=== PATIENT | female | born 1975 | race Caucasian/White ===

== ENCOUNTER 2023-05-02 18:58 | Outpatient (OUT) | payer OTHER, SELFPAY ==
--- NOTE | 2023-05-02 18:59 | US_ITS ---
The [address] [address] Patient Name: BLUE SAN MRN: [id number] date: 1975 Sex: F Assigned Patient Location: US Current Patient Location: US Accession/Order Number: [id number] Exam Date: 05/02/2023 19:00 Report Date: 05/02/2023 19:56 At the request of: SILVIO MILAN Procedure: US pelvis w/ transvaginal EXAM: Pelvic ultrasound HISTORY: . N83.201 RIGHT OVARIAN CYST; N83.202 LEFT OVARIAN CYST . COMPARISON: 01/19/2023 TECHNIQUE: Transabdominal and transvaginal scanning was performed FINDINGS: Scanning of the pelvis demonstrates the uterus to measure 8.8 x 4.9 x 4.2 cm. Endometrial complex measures 7 mm. Left ovary measures 3.5 x 1.6 x 3.1 cm. Color-flow is noted. Follicles are noted. Right ovary measures 5.9 x 4.2 x 3.2 cm. There is a 4.3 x 2.6 cm cyst within the right ovary. Within the endocervical canal there is a thin hypoechoic stripe measuring 1 mm consistent with fluid and/or blood. No fluid is noted in the cul-de-sac. IMPRESSION: 1. Normal-appearing uterus and endometrial complex. 2. Normal-appearing left ovary. 3. 4.3 x 2.6 cm cyst in the right ovary. Electronically authenticated by: OTF SINGER Date: 05/02/2023 19:56
== END 2023-05-02 18:59 ==
LOC: US 18:58
PROVIDERS: PCP Family Medicine; Visit Provider Obstetrics & Gynecology
DX: N83.201 Unspecified ovarian cyst, right side (principal); N83.202 Unspecified ovarian cyst, left side
CPT/HCPCS: 76830; 76856

== ENCOUNTER 2023-09-02 09:00 | Outpatient (OUT) | payer OTHER, SELFPAY ==
--- NOTE | 2023-09-02 09:05 | US_ITS ---
The [address] [address] Patient Name: BLUE SAN MRN: [id number] date: 1975 Sex: F Assigned Patient Location: US Current Patient Location: US Accession/Order Number: [id number] Exam Date: 09/02/2023 09:06 Report Date: 09/02/2023 12:04 At the request of: SILVIO MILAN Procedure: US pelvis w/ transvaginal EXAMINATION: US pelvis w/ transvaginal HISTORY: Left Ovarian Cyst N83.202 COMPARISON: 05/02/2023 FINDINGS: The uterus is normal in size measuring 9.9 x 3.8 x 4.9 cm, anteverted. Heterogeneous area of hypoechogenicity identified the anterior myometrium measuring 2.7 x 2.2 x 2.0 cm. A fibroid is favored. The endometrium is poorly visualized grossly measuring 5 mm. The right ovary measures 6.8 x 3.8 x 3.9 cm. 3.8 cm area of anechoic echogenicity likely a simple cyst. Normal color and Doppler flow in the ovary. The left ovary measures 5.5 x 4.6 x 5.6 cm. Normal color and Doppler flow. Complex cystic structure without vascularity measuring 4.3 x 3.9 x 3.6 cm. No free fluid US/US pelvis w/ transvaginal IMPRESSION: Bilateral ovarian cysts simple in the right, complex on the left Electronically authenticated by: OTF KUMAR Date: 09/02/2023 12:04
== END 2023-09-02 09:01 | disposition home or self-care (01) ==
LOC: US 09:00
PROVIDERS: PCP Family Medicine; Visit Provider Obstetrics & Gynecology
DX: N83.201 Unspecified ovarian cyst, right side (principal); N83.202 Unspecified ovarian cyst, left side; N83.291 Other ovarian cyst, right side; N83.292 Other ovarian cyst, left side
CPT/HCPCS: 76830; 76856

== ENCOUNTER 2024-03-08 09:04 | Outpatient (OUT) | payer OTHER, SELFPAY ==
--- NOTE | 2024-03-08 09:07 | US_ITS ---
The [address] [address] Patient Name: BLUE SAN MRN: [id number] date: 1975 Sex: F Assigned Patient Location: US Current Patient Location: US Accession/Order Number: [id number] Exam Date: 03/08/2024 09:08 Report Date: 03/08/2024 10:18 At the request of: NON-STAFF PHYSICIAN Procedure: US pelvis w/ transvaginal EXAMINATION: US pelvis w/ transvaginal HISTORY: Ovarian Cyst Bilateral , follow-up COMPARISON: Ultrasound pelvis 09/02/2023, 05/02/2023 TECHNIQUE: Transabdominal and/or transvaginal sonographic examination was performed as indicated by examination type. FINDINGS: UTERUS: Normal size, contour, and echotexture. Uterus size: 8.2 x 3.8 x 5.4 cm ENDOMETRIUM: Normal homogeneous appearance. Endometrial thickness: 8 mm RIGHT OVARY: Contains a 2.4 cm slightly irregular, anechoic benign-appearing cyst. Duplex Doppler demonstrates normal waveform and flow; resistive index 0.7. Ovary size: 4.9 x 2.6 x 2.6 cm LEFT OVARY: Contains a 2.4 cm anechoic benign-appearing cyst. Duplex Doppler demonstrates normal waveform and flow; resistive index 0.7. Ovary size: 3.4 x 2.3 x 3.8 cm CUL-DE-SAC: Unremarkable. No significant free fluid. BLADDER: Unremarkable. OTHER: None. US/US pelvis w/ transvaginal IMPRESSION: 1. Benign-appearing cyst within right ovary, likely collapsing follicle/cyst. 2. Benign-appearing simple cyst within left ovary; no suspicious findings. This likely represents represents a new cyst compared to 09/02/2023 with resolution of previously seen complex cyst. Electronically authenticated by: TEODORA STAHL Date: 03/08/2024 10:18
== END 2024-03-08 09:05 | disposition home or self-care (01) ==
LOC: US 09:04
PROVIDERS: PCP Family Medicine
DX: N83.201 Unspecified ovarian cyst, right side (principal); N83.202 Unspecified ovarian cyst, left side
CPT/HCPCS: 76830; 76856

== ENCOUNTER 2024-07-22 14:48 | Emergency (ER) | payer OTHER, SELFPAY ==
[2024-07-22 14:52] VITALS: BP 188/107; PULSE 129; TEMP 36.6; O2SAT 99; BMI 24.3
--- OUTSIDE RECORDS SUMMARY | 2024-07-22 14:54 | XMS_ITS | CCD ---
Author Organization [facility] Care Team Providers Care Facilities Maintenance Assistant Name Role Phone PHYSICIAN, DEFAULT Unavailable Unavailable PHYSICIAN, DEFAULT Unavailable Unavailable PHYSICIAN, DEFAULT Unavailable Unavailable PHYSICIAN, DEFAULT Unavailable Unavailable Otf Metzger Unavailable Otf Metzger Primary Care Physician KAYLI ., DR ANGUIANO Admitting Unavailable KAYLI ., DR ANGUIANO Attending Unavailable [place], DR OTF Haro Consulting Unavailable KAYLI ., DR ANGUIANO Consulting Unavailable KAYLI ., DR ANGUIANO Admitting Unavailable KAYLI ., DR ANGUIANO Attending Unavailable KAYLI ., DR ANGUIANO Consulting Unavailable KAYLI ., DR ANGUIANO Admitting Unavailable KAYLI ., DR ANGUIANO Attending Unavailable KAYLI ., DR ANGUIANO Consulting Unavailable JL II, ADRIEL Consulting Unavailable FILLOC, CHAVA Consulting Unavailable KAYLI ., DR ANGUIANO Admitting Unavailable KAYLI ., DR ANGUIANO Attending Unavailable KAYLI ., DR ANGUIANO Consulting Unavailable KAYLI ., DR ANGUIANO Admitting Unavailable KAYLI ., DR ANGUIANO Attending Unavailable KAYLI ., DR ANGUIANO Admitting Unavailable KAYLI ., DR ANGUIANO Attending Unavailable KAYLI ., DR ANGUIANO Consulting Unavailable KAYLI ., DR ANGUIANO Admitting Unavailable KAYLI ., DR ANGUIANO Attending Unavailable KAYLI ., DR ANGUIANO Consulting Unavailable KAYLI, SILVIO Attending Unavailable Otf Metzger DO Primary Care Provider [phone] Vanna Johnson Admitting Unavaila ble Vanna Johnson Attending Unavaila ble Vanna Johnson Referring Unavaila ble Otf Metzger Admitting Unavailable Otf Metzger Attending Unavailable Otf Metzger Referring Unavailable REFERRAL, SELF Admitting Unavailable REFERRAL, SELF Attending Unavailable REFERRAL, SELF Referring Unavailable Otf Metzger Consulting Unavailable Otf Metzger Consulting Unavailable Tian Saxena Attending Unavailable Otf Metzger Referring Unavailable Renata Strong Attending Unavailable YOHAN WILSON Attending Unavailable OTF METZGER Referring Unavailable OTF METZGER Primary Care Unavailable Medications Current Medications Medication Drug Class(es) Dates Sig (Normalized) Sig (Original) amoxicillin 875 mg / clavulanate 125 mg oral tablet (1 source) Penicillin-class Antibacterial Start: 03-05-2024 take 1 tablet by mouth twice daily at mealtime Amoxicillin-Pot Clavulanate Active 1 TAB PO Twice daily 02 09March 05, 2024 12:00am with food diazePAM 5 mg oral tablet (13 sources) Benzodiazepine Start: 09-15-2016 diazepam 5 mg Tab 30 tab(s), 0 Refill(s), Refills(s) 0 Start Date: 09/09/23 Status: Ordered Ethinyl Estradiol / Levonorgestrel (2 sources) Progestin, Estrogen, Progestin-containing Intrauterine Device Start: 01-17-2024 take 1 tablet by mouth once daily in the morning L norgest/e.estrad ioL-e.estrad (AMETHIA) 0.15 mg-30 mcg (84)/10 mcg (7) tablets,dose pack,3 month Indications: Cysts of both ovaries TAKE 1 TABLET BY MOUTH EVERY DAY IN THE MORNING 91 tablet 2 01/17/2024 Active Start: 10-26-2023 End: 01-17-2024 take 1 tablet by mouth every month in the morning L norgest/e.estradioL-e.estrad (AMETHIA) 0.15 mg-30 mcg (84)/10 mcg (7) tablets,dose pack,3 month Indications: Cysts of both ovaries Take 1 tablet by mouth in the morning. 91 each 0 10/26/2023 01/17/2024 Discontinued ferrous sulfate 325 mg oral tablet (17 sources) Start: 03-05-2024 Ferrous Sulfat e Active 325 MG PO Every 48 hours March 05, 2024 3:38pm FreeTextSi tablet Orally every other day; Note: Source Status: Refill; Refills: 3; Provider: Jamilah Espinosa Start: 03-01-2024 End: 03-05-2024 Ferrous Sulfate Discontinued 1 TAB PO Every 48 hours March 01, 2024 12:00am March 05, 2024 3:39pm FreeTextSi tablet Orally every other day; Note: Source Status: Refill; Refills: 3; Provider: Jamilah Espinosa Start: 09-09-2023 ferrous sulfat e Oral, 0 Refill(s), Refills(s) 0, Prophylaxis Start Date: 09/09/23 Status: Ordered Start: 09-09-2023 ferrous sulfat e Oral, 0 Refill(s), Refills(s) 0 Start Date: 09/09/23 Status: Ordered ferrous sulfate 325 (65 FE) mg EC tablet Take 1 tablet (325 mg total) by mouth. 0 Active take 1 tablet by diann th every other day Ferrous Sulfate 325 (65 Fe) MG 1 tablet Orally every other day for 90 days Active take 1 tablet by diann th every other day Ferrous Sulfate 325 (65 Fe) MG 1 tablet Orally every other day Active take 1 tablet by diann th once daily Ferrous Sulfate 325 (65 Fe) MG TAKE 1 TABLET BY MOUTH EVERY DAY Active take 1 tablet by diann th once daily Ferrous Sulfate 325 (65 Fe) MG TAKE 1 TABLET BY MOUTH EVERY DAY Active metoprolol tartrate 25 mg oral tablet (6 sources) beta-Adrenergic Antonio Start: 11-24-2019 take 0.5 tablet by mouth twice daily Lopressor 25 mg oral tablet TAKE 1/2 TABLET BY MOUTH TWICE A DAY, High blood pressure Start Date: 11/24/19 Status: Ordered ondansetron 4 mg oral tablet (16 sources) Serotonin-3 Receptor Antagonist Start: 03-05-2024 Ondansetron Hcl Active 4 MG PO March 05, 2024 3:38pm FreeTextSi Tablet Orally q8-12 hrs prn nausea; Note: Source Status: Continue; Provider: Jamilah Espinosa Start: 03-01-2024 End: 03-05-2024 Ondansetron Hcl Discontinued MG PO March 01, 2024 12:00am March 05, 2024 3:39pm FreeTextSi Tablet Orally q8-12 hrs prn nausea; Note: Source Status: Continue; Provider: Jamilah Espinosa Start: 09-09-2023 Zofran 4 mg Ta b 0 Refill(s), Refills(s) 0, Nausea Start Date: 09/09/23 Status: Ordered Start: 12-20-2016 Zofran 4 mg 1 Tablet Orally q8-12 hrs prn nausea Dec, Active Start: 12-20-2016 Zofran 4 mg 1 Tablet Orally q8-12 hrs prn nausea Dec, Active valACYclovir 1000 mg oral tablet (12 sources) Herpesvirus Nucleoside Analog DNA Polymerase Inhibitor, Herpes Simplex Virus Nucleoside Analog DNA Polymerase Inhibitor, Herpes Zoster Virus Nucleoside Analog DNA Polymerase Inhibitor Start: 03-01-2024 End: 03-05-2024 take 1 tablet by mouth three times daily Valacyclovir (Valtrex) 1 gram tablet Active 1000 MG PO March 05, 2024 3:39pm FreeTextSi tablet Orally tid x7 days; Note: Source Status: Taking; Refills: 2; Provider: Jamilah Espinosa Start: 11-30-2017 Valtrex 1 GM 1 tablet Orally tid x7 days for 7 days Nov, Active Start: 11-30-2017 Valtrex 1 GM 1 tablet Orally tid x7 days for 7 days Nov, Active Vitamin C 500 MG (1 source) Start: 08-22-2023 take 1 tablet by diann th once daily Vitamin C 500 MG 1 tablet Orally Once a day Aug, Active Completed/Discontinued Medications Medication Drug Class(es) Dates Sig (Normalized) Sig (Original) ascorbic acid 500 mg chewable tablet (3 sources) Vitamin C Start: 03-01-2024 End: 03-05-2024 take 1 tablet by mouth once daily Ascorbic Acid (Vitamin C) Discontinued 500 MG PO Daily March 05, 2024 3:38pm March 05, 2024 3:50pm FreeTextSi tablet Orally Once a day; Note: Source Status: Start; Provider: Jamilah Espinosa Start: 08-22-2023 take 1 tablet by diann th every twenty-four hours Vitamin C 500 MG 1 tablet Orally Once a day Aug, Active cefTRIAXone (9 sources) Cephalosporin Antibacterial Start: 06-22-2018 Rocephin 500 mg Jun, 1 grm cyclobenzaprine hydrochloride 10 mg oral tablet (17 sources) Muscle Relaxant Start: 03-01-2024 End: 03-05-2024 take 1 tablet by mouth every eight hours as needed Cyclobenzaprine Discontinued 10 MG PO March 05, 2024 3:38pm March 05, 2024 3:40pm FreeTextSi tablet Orally q8 hrs prn; Note: Source Status: Continue; Provider: Jamilah Espinosa Start: 12-08-2015 take 1 tablet by diann th every eight hours as needed Cyclobenzaprine HCl 10 mg 1 tablet Orally q8 hrs prn Nov, Active Start: 12-07-2015 cyclobenzaprin e Oral, 0 Refill(s), Refills(s) 0, Muscle pain Start Date: 12/07/15 Status: Ordered Start: 12-07-2015 cyclobenzaprin e Oral, 0 Refill(s), Refills(s) 0 Start Date: 12/07/15 Status: Ordered Ketorolac (9 sources) Nonsteroidal Anti-inflammatory Drug, Cyclooxygenase Inhibitor Start: 02-13-2013 Toradol p er 15 mg Feb, 60 mg Problems Active Problems Problem Classification Problem Date Documented Da te Episodic/Chronic Anxiety disorders (6 sources) Anxiety 11-10-2015 Chronic Biliary tract disease (6 sources) Gallbladder pain 11-10-2015 Episodic Cardiac dysrhythmias (6 sources) Atrial tachycardia 08-27-2019 Chronic Deficiency and other anemia (11 sources) Iron deficiency anemia; Translations: [Iron deficiency anemia, unspecified] 03-05-2024 Episodic Deficiency and other anemia (7 sources) Iron deficiency anemia, unspecified; Translations: [Iron deficiency anemia, unspecified] Onset: 09-25-2021 Resolved: 07-26-2022 Episodic Diabetes mellitus without complication (4 sources) Hyperglycemia, unspecified; Translations: [Hyperglycemia] Onset: 09-25-2021 Resolved: 09-25-2021 Episodic Headache; including migraine (20 sources) Migraine; Translations: [Migraine, unspecified, not intractable, without status migrainosus] Onset: 09-25-2021 Resolved: 07-26-2022 Chronic Menstrual disorders (19 sources) Menorrhagia; Translations: [Excessive and frequent menstruation with regular cycle] Onset: 01-19-2023 Chronic Nausea and vomiting (10 sources) Nausea; Translations: [Nausea] Episodic Other female genital disorders (1 source) Abnormal uterine and vaginal bleeding, unspecified; Translations: [ABNORMAL UTERINE VAGINAL BLEED UNS] Onset: 03-09-2023 Chronic Other gastrointestinal disorders (11 sources) Irritable bowel syndrome; Translations: [Irritable bowel syndrome without diarrhea] 03-05-2024 Chronic Other gastrointestinal disorders (7 sources) Irritable bowel syndrome without diarrhea; Translations: [Irritable bowel syndrome] Onset: 09-25-2021 Resolved: 07-26-2022 Chronic Other gastrointestinal disorders (6 sources) Perforation of intestine 11-10-2015 Episodic Other gastrointestinal disorders (5 sources) Urgent desire for stool; Translations: [Fecal urgency] Onset: 09-13-2023 Episodic Other gastrointestinal disorders (5 sources) Diarrhea; Translations: [Diarrhea, unspecified] Onset: 09-13-2023 Episodic Other nutritional; endocrine; and metabolic disorders (1 source) Abnormal weight loss Episodic Other screening for suspected conditions (not mental disorders or infectious disease) (9 sources) Encounter for screening mammogram for malignant neoplasm of breast; Translations: [Encounter for screening for malignant neoplasm of cervix] Onset: 02-08-2023 Episodic Poisoning by nonmedicinal substances (2 sources) Spider bite wound; Translations: [Toxic effect of unspecified spider venom, accidental (unintentional), initial encounter] 03-05-2024 Episodic Residual codes; unclassified (1 source) Acquired absence of other specified parts of digestive tract; Translations: [ACQ ABSENCE OTH PART DIGESTV TRACT] Onset: 03-09-2023 Episodic Thyroid disorders (20 sources) Hyperthyroidism; Translations: [Thyrotoxicosis, unspecified without thyrotoxic crisis or storm] Onset: 09-25-2021 Resolved: 09-25-2021 Chronic Unclassified (4 sources) Patient encounter status 09-13-2023 Unclassified (1 source) Transformed migraine; Translations: [Chronic migraine] 03-05-2024 Past or Other Problems Problem Classification Problem Date Documented Da te Episodic/Chronic Other aftercare (1 source) Other long term care administrator (current) drug therapy Onset: 07-26-2022 Resolved: 07-26-2022 Episodic Ovarian cyst (11 sources) Unspecified ovarian cyst, right side; Translations: [Unspecified ovarian cyst, left side] Onset: 01-22-2023 Episodic Unclassified (6 sources) Entire gallbladder (body structure) 11-10-2015 Results Test Name Value Interpretation Reference Range Facil ity Consent for Treatmenton 02-13 Consent for Treatment [id number]#[id number] Normal [facility] US Breast Unilateral Rt Comp leteon 03-08-2024 US Breast Unilateral Rt Complete Exam Date/Time: 03/08/2024 13:05 EDT Reason for Exam: R92.8 Report IMPRESSION: BIRADS 2 BENIGN FINDINGS, NORMAL INTERVAL FOLLOW-UP. EXAMINATION: US Breast Unilateral Rt Complete CLINICAL HISTORY: Abnormal mammogram. COMPARISON: Mammogram 02/24/2024. RESULT: An ultrasound was obtained at all clock face positions and in the central/ retroareolar region of the right breast. Scattered areas of fibroglandular density. Appearing to correlate with the recent screening mammogram, within the right breast at the 2:00 position there is a benign anechoic cyst measuring 0.5 x 0.4 x 0.3 cm, without internal vascularity. Otherwise the complete right breast ultrasound is unremarkable. Dense Breast: No Follow-up: 12 MONTH RECALL. Board Certified Radiologists. Accredited by the ACR and FDA. MAMMOGRAPHY IS VERY IMPORTANT TO YOUR HEALTH. THE [employer] GUIDELINES RECOMMEND THAT WOMEN 40 YEARS OF AGE AND OLDER SHOULD HAVE A MAMMOGRAM EVERY YEAR. A REMINDER LETTER WILL BE SENT AT THE APPROPRIATE TIME. THIS FACILITY UTILIZES A REMINDER SYSTEM TO ENSURE ALL PATIENTS RECEIVE REMINDER NOTIFICATIONS AT THE APPROPRIATE TIME BASED ON THE RECOMMENDATIONS OF THIS EXAM. THIS INCLUDES REMINDERS FOR ROUTINE SCREENING MAMMOGRAMS, DIAGNOSTIC MAMMOGRAMS IN WHICH THE PATIENT IS ASKED TO RETURN FOR ADDITIONAL VIEWS, OR OTHER BREAST IMAGING INTERVENTIONS WHEN APPROPRIATE. THE PATIENT WILL BE PLACED IN THE APPROPRIATE REMINDER SYSTEM INCLUDING A REMINDER AT THE APPROPRIATE TIME FOR ANY PENDING ADDITIONAL VIEWS. Report Ordering Provider: Otf Metzger FINAL REPORT Dictated: 03/08/2024 1:10 pm Duong Sanches MD. Signed (Electronic Signature): 03/08/2024 1:10 pm Signed by: Duong Sanches MD Transcribed by: JANIS Technologist: LANDEN Assessment: BI-RADS Category 2-Benign finding Recommendation: Normal interval follow-up Normal [facility] Physician Orderon 03-02-2024 Physician Order [id number] Normal [facility] Laboratory - Hematology and Cell countson 02-27-2024 HbA1c (Bld) [Mass fraction] 5.5 % [facility] MA Mamm Screen w/CAD if perf and 3D Bilon 02-27-2024 MA Mamm Screen w/CAD if perf and 3D Vincent Exam Date/Time: 02/24/2024 09:23 EDT Reason for Exam: SCREENING Report IMPRESSION: BIRADS 0 - INCOMPLETE, NEED ADDITIONAL IMAGING EVALUATION Follow-up: RECALL NOW Density: Scattered tissue. Vascular calcifications: Absent. EXAM: MA Mamm Screen w/CAD if perf and 3D Vincent DATE: 02/24/2024 9:12 AM CLINICAL HISTORY: SCREENING. COMPARISONS: 11/12/2022, 10/02/2021, 11/05/2019, and 10/31/2018. TECHNIQUE: Routine full-field digital mammograms and 3D breast tomosynthesis of both breasts were obtained. FINDINGS: An approximately 4 mm nodular density has developed within the medial right breast at a middle to posterior depth. Further evaluation with ultrasound is suggested. No other significant changes are identified from the prior studies with postoperative changes from previous reduction mammoplasty and small lucent-centered calcifications, given differences in technique and positioning. Dense Breast: No. CAD analysis was performed and used in the interpretation. Board Certified Radiologists. Accredited by the ACR and FDA. MAMMOGRAPHY IS VERY IMPORTANT TO YOUR HEALTH. THE CURRENT [place] [employer] GUIDELINES RECOMMENDS ANNUAL MAMMOGRAPHY BEGINNING AT AGE 40. THIS FACILITY UTILIZES A REMINDER SYSTEM TO ENSURE ALL PATIENTS RECEIVE REMINDER NOTIFICATIONS AT THE APPROPRIATE TIME BASED ON THE RECOMMENDATIONS OF THIS EXAM. Report Ordering Provider: REFERRAL, SELF FINAL REPORT Dictated: 02/27/2024 3:25 pm Jeff Heard MD Signed (Electronic Signature): 02/27/2024 3:25 pm Signed by: Jeff Heard MD Transcribed by: JANIS Technologist: FARHAT Assessment: BI-RADS Category 0-Incomplete: Need additional imaging evaluation Recommendation: Additional projections Normal [facility] Consent for Treatmenton 02-12 Consent for Treatment [id number] Normal [facility] Postoperative Documentson Postoperative Documents [id number] Normal [facility] IntraOperative Documentson 1 12-25-2022 IntraOperative Documents [id number] Normal [facility] Result Letter Officeon 10-24 Result Letter Office October 24, 2023 BLUE SAN [address] [place] [address] [place] [address] : 1975 Below is a summary of the results of your recent colonoscopy. Your results have been sent to your primary care provider along with recommendations on when the procedure should be repeated. COLONOSCOPY Type of polyp no polyps identified Based on your results we are recommending you repeat the procedure in 10 years Please contact the office with any further questions or concerns or if you wish to make an appointment. [facility] [phone] Normal [facility] Progress Note-Physicianon Progress Note-Physician Patient: BLUE SAN Age: 47 years Sex: Female : 1975 Associated Diagnoses: None Author: Delroy Dee Jr, DO Preoperative Information Anesthesia Preop Info: Time patient last ate or drank 10/19/2023 00:00:00. Anesthesia history: Patient history: None. Family history+: None. Informed consent: Signed by patient. Re-evaluation prior to induction: Initial evaluation reviewed: No significant change. Review of Systems Eye: Negative except as documented in history of present illness. Ear/Nose/Mouth/Throat: Negative except as documented in history of present illness. Respiratory: Negative except as documented in history of present illness. Cardiovascular: Negative except as documented in history of present illness. Musculoskeletal: Negative except as documented in history of present illness. Neurologic: Negative except as documented in history of present illness. Health Status Allergies: Allergic Reactions (Selected) No Known Allergies Problem list: All Problems Fecal urgency / SNOMED CT 799775101 / Confirmed Screen for colon cancer / SNOMED CT 926796822 / Confirmed Gallbladder attack / SNOMED CT 565600747 / Confirmed Diarrhea / SNOMED CT 946424748 / Confirmed Atrial tachycardia / SNOMED CT 853742670 / Confirmed Anxiety / SNOMED CT 15859200 / Confirmed Resolved: Perforated bowel / SNOMED CT [id number] 03X24812MB Resolved: Gallbladder / SNOMED CT 619311799 Canceled: Upper abdominal pain / SNOMED CT 853091915 Canceled: Abdominal cramping / SNOMED CT 363619017 Histories Procedure history: Breast reduction (913587344). Gallbladder (24421474). Bowel dysfunction (647809409). Comments: 08/27/2019 9:09 EDT - Esperanza Goodwin MA recestion Colonoscopy (463945984). Comments: 09/13/2023 8:36 EDT - Portia Mar 20 years ago Social History Social & Psychosocial Habits Tobacco 09/13/2023 Risk Assessment: Denies Tobacco Use 09/13/2023 Tobacco Use: Never (less than 100 in l Smokeless tobacco use: Never . Physical Examination Airway: Mallampati classification: II (soft palate, fauces, uvula visible). Respiratory: adequate air exchange. Cardiovascular: Regular rhythm. Plan [place] [employer] (ASA) physical status classification: Class II. Anesthetic Preoperative Plan: Anesthesia General. [facility] Comment on above: Result Comment: Elec tronically Signed By: Delroy Dee Jr, DO\.br\Date and Time Signed: 10/21/23 07:36 EST Progress Note-Physician Patient: BLUE SAN Age: 47 years Sex: Female : 1975 Associated Diagnoses: None Author: Delroy Dee Jr, DO Postoperative Information Postoperative disposition: Postoperative disposition: To PACU. Optimetrix number: Optimetrix number [id number]. Anesthetic utilized: General. Health Status Allergies: Allergic Reactions (Selected) No Known Allergies Physical Examination Vital Signs 10/19/2023 12:10 EST Heart Rate Monitored 80 bpm Respiratory Rate Monitored 10 br/min 10/19/2023 12:05 EST Heart Rate Monitored 89 bpm Respiratory Rate Monitored 17 br/min Systolic Blood Pressure 120 mmHg Diastolic Blood Pressure 75 mmHg Mean Arterial Pressure, Cuff 90 mmHg SpO2 100 % 10/19/2023 12:00 EST Heart Rate Monitored 81 bpm Respiratory Rate Monitored 20 br/min Systolic Blood Pressure 108 mmHg Diastolic Blood Pressure 79 mmHg Mean Arterial Pressure, Cuff 89 mmHg SpO2 100 % 10/19/2023 11:55 EST Heart Rate Monitored 84 bpm Respiratory Rate Monitored 18 br/min Systolic Blood Pressure 107 mmHg Diastolic Blood Pressure 82 mmHg Mean Arterial Pressure, Cuff 90 mmHg SpO2 100 % 10/19/2023 11:50 EST Heart Rate Monitored 88 bpm Respiratory Rate Monitored 20 br/min Systolic Blood Pressure 106 mmHg Diastolic Blood Pressure 77 mmHg SpO2 100 % 10/19/2023 11:47 EST Temperature Temporal Artery 36.3 DegC Heart Rate Monitored 90 bpm Respiratory Rate Monitored 22 br/min Systolic Blood Pressure 112 mmHg Diastolic Blood Pressure 74 mmHg Blood Pressure Location Left arm Mean Arterial Pressure, Cuff 87 mmHg SpO2 100 % Pain Assessment: Controlled. General: Awake, Alert, Appropriate. Respiratory: Adequate air exchange. Cardiovascular: Stable, Normal peripheral perfusion. Neurological: Normal sensory function, Normal motor function. Assessment Anesthetic outcome No anesthetic complications noted. Adequate pain relief. able to void without difficulty, able to ambulate with assist, tolerating PO intake, no N/V. Review / Management Condition: Stable. Plan Transfer/Discharge: Transfer/Discharge Discharge when meets criteria ( To home ). [facility] Comment on above: Result Comment: Elec tronically Signed By: Delroy Dee Jr, DO\.br\Date and Time Signed: 10/21/23 07:35 EST Consenton 10-20-2023 Consent [id number] [facility] Discharge Instructionson Discharge Instructions [id number] [facility] Main OR Intraoperative Recor don 10-20-2023 Main OR Intraoperative Record IntraOp Document Type FT Summary Primary Physician: Vanna Johnson MD Finalized Date/Time: 10/20/23 15:32:49 Pt. Name: JASWINDERVEDA GravesGaudencio SmallwoodB./Sex: 1975 Female Med Rec #: [id number] Physician: Vanna Johnson MD Financial #: [id number] Pt. Type: O Room/Bed: / Admit/Disch: 10/19/23 09:56:56 - 10/19/23 23:59:59 Institution: Case Times FT Entry 1 Patient Times In Room 10/19/23 11:19:00 Out Room 10/19/23 11:46:00 Procedure Times Start 10/19/23 11:23:00 Stop 10/19/23 11:43:00 Anesthesia Times Start 10/19/23 11:19:00 Stop 10/19/23 11:46:00 Time at [facility] 10/19/23 11:30:00 Last Modified By: Clara VALLE, Heike 10/19/23 11:46:44 General Comments: 10/20/23 chart opened for charge review per Usman Yadav RN. [place] Case Attendance FT Entry 1 Entry 2 Entry 3 Case Attendee Amita CAA, Jim Chester, Zoey Strickland AWARD CLERK, Florencia Pardo Role Performed Anesthesiologist Scrub - Primary Staff - Other Policy Intern Time In 10/19/23 11:19:00 10/19/23 11:19:00 10/19/23 11:19:00 Time Out 10/19/23 11:46:00 10/19/23 11:46:00 10/19/23 11:46:00 Procedure COLONOSCOPY(.) COLONOSCOPY(.) COLONOSCOPY(.) Comments supervising help in room Last Modified By: Clara RN, Heike Elizabeth RN, Heike Elizabeth RN, Heike 10/19/23 11:46:45 10/19/23 11:46:45 10/19/23 11:46:45 Entry 4 Entry 5 Case Attendee Elizabeth CHUA, Vanna Elizabeth RN, Heike Friedman Role Performed Surgeon - Primary Security Lead - Primary Time In 10/19/23 11:19:00 10/19/23 11:19:00 Time Out 10/19/23 11:46:00 10/19/23 11:46:00 Procedure COLONOSCOPY(.) COLONOSCOPY(.) Comments Last Modified By: Clara RN, Heike Elizabeth RN, Heike 10/19/23 11:46:45 10/19/23 11:46:45 Perioperative Protocols FT Pre-Care Text: Implements protective measures prior to operative or invasive procedure, confirms identity before the operative or invasive procedure, verifies operative procedure, surgical site, and laterality Entry 1 Procedure(s) COLONOSCOPY(.) Patient Identity Birthday, ID Band Verified (select at Check, Patient least 2): Participation Consents / H and P Anesthesia Consent, Operative Site N/A Verified HandP, Surgery/Procedure Marking Verified Consent Surgical Site No Laterality Verified n/a Verified Procedure Verified Yes Correct Patient Yes Position Verified Availability Equipment, Medication Prep Dry n/a Verified (If Applicable) PreOp Antibiotic No Time Out Jim Spann, Given Participants Zoey Chester, Marco A AWARD CLERK, Florencia Pardo, Elizabeth CHUA, Vanna Friedman, Heike Elizabeth RN Time Out Complete 10/19/23 11:21:00 Outcomes Met? Yes Last Modified By: Heike Elizabeth RN 10/19/23 11:30:33 Post-Care Text: The patient is free from signs and symptoms of injury caused by extraneous objects Allergy Information FT Pre-Care Text: Verifies allergies Entry 1 Allergies Reviewed? Yes Allergies Reviewed Self/Patient With Outcomes Met? Yes Last Modified By: Heike Elizabeth RN 10/19/23 11:38:15 Post-Care Text: The patient received appropriate medication(s) safely administered during the perioperative period Surgical Procedures FT Entry 1 Procedure Description Procedure COLONOSCOPY Modifiers . Surgeon Description Colonoscopy Primary Procedure Yes Primary Surgeon Elizabeth CHUA, Vanna Friedman Start 10/19/23 11:23:00 Stop 10/19/23 11:43:00 Anesthesia Type General Surgical Service Gastroenterology Wound Class 2 - Clean-Contaminated Last Modified By: Heike Elizabeth RN 10/19/23 11:44:10 General Case Data FT Pre-Care Text: Classifies surgical wound, implements aseptic technique, initiates traffic control Entry 1 Case Information OR ENDO 1 FT Case Level Level 2 Wound Class 2 - Clean-Contaminated Specialty Gastroenterology ASA Class 2 Preop Diagnosis DIARRHEA, FECAL Postop Same As Preop No URGENCY, SCREEN FOR COLON CANCER Postop Diagnosis Internal hemorrhoids Outcomes Met? Yes Last Modified By: Heike Elizabeth RN 10/19/23 11:45:47 Post-Care Text: The patient is free from signs and symptoms of infection Skin Assessment (Pre Procedure) FT Pre-Care Text: Implements protective measures to prevent skin/ tissue injury due to thermal or mechanical sources Evaluates for signs and symptoms of physical injury to skin and tissue Entry 1 Skin Integrity Intact, [place], Warm, and Skin Abnormality No Dry Outcomes Met? Yes Last Modified By: Heike Elizabeth RN 10/19/23 11:38:38 Post-Care Text: The patient is free from signs and symptoms of injury caused by extraneous objects Patient Positioning FT Pre-Care Text: Identifies physical alterations that require additional precautions for procedure-specific positioning, verifies presence of prosthetics or corrective devices, positions the patient, evaluates the patient for signs and symptoms of injury as a result of positioning Entry 1 Procedure COLONOSCOPY(.) Body Position Lateral, (more content not included)... Normal [facility] Consent for Treatmenton Consent for Treatment [id number] Normal [facility] Discharge Instructionson Discharge Instructions BLUE SAN :1975 Visit Date:10/19/2023 Inpatient Discharge Instructions Your Care Team Admitting Physician - Vanna Johnson MD Referring Physician - Vanna Johnson MD Reason for Your Visit DIARRHEA, FECAL URGENCY, SCREEN FOR COLON CANCER Your Diagnosis Colon cancer screening This Is Your Medications List cyclobenzaprine diazepam (diazepam 5 mg Tab) ferrous sulfate metoprolol (Lopressor 25 mg oral tablet) ondansetron (Zofran 4 mg Tab) Procedure History Bowel dysfunction, Breast reduction, Colonoscopy, Gallbladder. Discharge Vitals Temperature (Temporal Artery) 36.3 ?C Heart Rate (Monitored) 88 Respiratory Rate 20 Blood Pressure 106/77 Height 170.1 cm Weight 72.1 kg BMI 24.92 What to do next Instructions From Your Doctor Event Name Event Result Pharmacy Information Other: [facility]- [place], [place] New Follow Up Appointments after Discharge Follow Up with Elizabeth CHUA, Vanna Friedman, [facility], [facility] When: Comments: Office Will Call Date and Time of Follow-up Appt. Where: [address] [place] [address], [address] [phone] [phone] Medications What When Instructions Next Dose Unchanged cyclobenzaprine Oral, 0 Refill(s) Unchanged diazepam (diazepam 5 mg Tab) 30 tab(s), 0 Refill(s) Unchanged ferrous sulfate Oral, 0 Refill(s) Unchanged metoprolol (Lopressor 25 mg oral tablet) TAKE 1/ 2 TABLET BY MOUTH TWICE A DAY Unchanged ondansetron (Zofran 4 mg Tab) 0 Refill(s) Test Results No qualifying data available. Allergies No Known Allergies Problems Ongoing - Any problem that you are currently receiving treatment for. Atrial tachycardia Diarrhea Fecal urgency Screen for colon cancer Historical - Any problem that you are no longer receiving treatment for. Gallbladder Perforated bowel Education Materials AvoidNonsteroidal Anti-Inflammatory Medications (NSAIDS) Non-steroidal anti-inflammatory drugs (NSAIDs) are a medication widely used to treat a wide range of conditions. Common acute (short-term) conditions that can be treated with NSAIDs include: ? headaches ? painful periods ? toothache ? soft tissue injuries such as sprains and strains ? reduce inflammation (redness and swelling) ? infections, such as the common cold or the flu (NSAIDs do not treat the underlying infections, but can help to relieve symptoms; especially fever) Common chronic (long-term) conditions that can be treated with NSAIDs include: ? most types of arthritis, including rheumatoid arthritis and osteoarthritis ? back pain ? neck pain Some NSAIDs are available [id number]-[id number], without the need for a prescription. However, because a medication is available over the counter it does not mean it is safe or suitable for everyone. Again, it is important to read the patient information leaflet that comes with your medication. NSAID drugs include: Brand: Generic: Bufferin; Dexter Aspirin; ASA Celebrex Celecoxib Zipsor; Cambia Diclofenac Motrin; Advil Ibuprofen Indosin Indometacin Actron; Orudis Ketoprofen Toradol Ketorolac Mobic Meloxicam Ponstel Mefenamic Acid Aleve; Naprosyn Naproxen Side effects: Most people take NSAIDs without having any side effects. Short term use is unlikely to cause significant problems, especially in younger patients. If side effects do occur they usually affect the stomach and can include: ? Indigestion ? Nausea ? Stomach pain ? Stomach ulcer ? Bleeding from the stomach and intestines Colonoscopy Care After Surgery Please read the instructions outlined below and refer to this sheet in the next few weeks. These discharge instructions provide you with general information on caring for yourself after you leave the hospital. Your doctor may also give you specific instructions. While your treatment has been planned according to the most current medical practices available, unavoidable complications occasionally occur. If you have any problems or questions after discharge, please call your doctor. ACTIVITY You may resume your regular activity, but move at a slower pace for the next 24 hours. Take frequent rest periods for the next 24 hours. Walking will help get rid of the air and reduce the bloated feeling in your abdomen (belly). No driving for 24 hours (because of the anesthesia (medicine) used during the test). You may shower. Do not sign any important legal documents or operate any machinery for 24 hours (because of the anesthesia used during the test). NUTRITION Drink plenty of fluids. You may resume your normal diet as instructed by your doctor. Begin with a light meal and progress to your normal diet. Heavy or fried foods are harder to digest and may make you feel nauseated (sick to your stomach). Avoid alcoholic beverages for 24 hours or as instructed. MEDICATION (more content not included)... Normal [facility] Comment on above: Result Comment: Elec tronically Signed By: Luz VALLE, Daisy\.br\Date and Time Signed: 10/19/23 11:53 EST Endoscopic Procedure Report - Otheron 10-19-2023 Endoscopic Procedure Report - Other Patient: BLUE SAN Age: 47 years Sex: Female : 1975 Associated Diagnoses: None Author: Vanna Johnson MD Pre-Procedure Procedure Date 10/19/2023 11:45:00 . Procedure Type: Colonoscopy. Procedure provider Performed by Vanna Johnson MD. Current history and physical Documented on chart. Colorectal neoplasm risk assessment Average risk. Informed Consent After discussing the rationale, risks and benefits, and alternatives to this procedure, the patient provided signed consent for the procedure. Pre-procedure diagnosis: Screening. Medications Anticoagulant/antiplatelet None. ASA Classification: Class II. . Monitoring: See anesthesia record. . Procedure The procedure was performed in the hospital. See anesthesia record for sedation given during procedure. The patient was positioned starting in the left lateral decubitus position. Endoscope type used was an adult-size. The endoscope was lubricated then introduced through the anus. The scope was advanced to the terminal ileum. No difficulties encountered during the procedure. The bowel preparation quality was adequate (see polyps greater than or equal to 6 millimeters). The patient tolerated the procedure well. Time to Cecum: 7 min Withdrawal time 13 min Findings 1. Small internal hemorrhoids 2. Ileocolonic anastomosis in the mid transverse likely ikqm-un-hsqv anatomy, anastomosis widely open. 3. Cecum with normal IC valve and normal terminal ileum. Images Procedure images: Rec1_hd_video_ [id number].jpg Rec1_hd_video_ [id number].jpg Rec1_hd_video_ [id number].jpg Rec1_hd_video_ [id number].jpg Rec1_hd_video_ [id number]_16_250.jpg Rec1_hd_video_ [id number]_[id number].jpg Rec1_hd_video_ [id number]_26_737.jpg Rec1_hd_video_ [id number]_799.jpg Rec1_hd_video_ 1_38_[id number]_395.jpg Rec1_hd_video_ [id number]_43_794.jpg Rec1_hd_video_ [id number]_36_045.jpg Rec1_hd_video_ [id number]_25_714.jpg Rec1_hd_video_2022__06T1 1_33_20_915.jpg . Post-Procedure Complications: none. Estimated blood loss: none. Specimens: none. Devices/ implants: none left in place. Impression and Plan 1. Small internal hemorrhoids 2. Ileocolonic anastomosis in the mid transverse likely qfup-sw-cajr anatomy, anastomosis widely open. 3. Cecum with normal IC valve and normal terminal ileum. Recommendations: Repeat colonoscopy:: In 10 years. Follow-up:: With primary care as previously scheduled. Diet:: Previous. Medication resumption:: Continue current medications, Avoid NSAIDs. Return to activities:: After 24 hours. Education and Follow-up: Counseled: Patient, Family. [facility] Comment on above: Result Comment: Elec tronically Signed By: Vanna Johnson MD\.br\Date and Time Signed: 10/19/23 11:47 EST Other Comment: Saritha ng Attachment - attachment storage system not supported [id number] Can be viewed in source system Missing Attachment - attachment storage system not supported [id number] Can be viewed in source system Missing Attachment - attachment storage system not supported [id number] Can be viewed in source system Missing Attachment - attachment storage system not supported [id number] Can be viewed in source system Missing Attachment - attachment storage system not supported [id number] Can be viewed in source system Missing Attachment - attachment storage system not supported [id number] Can be viewed in source system Missing Attachment - attachment storage system not supported [id number] Can be viewed in source system Missing Attachment - attachment storage system not supported [id number] Can be viewed in source system Missing Attachment - attachment storage system not supported [id number] Can be viewed in source system Missing Attachment - attachment storage system not supported [id number] Can be viewed in source system Missing Attachment - attachment storage system not supported [id number] Can be viewed in source system Missing Attachment - attachment storage system not supported [id number] Can be viewed in source system Missing Attachment - attachment storage system not supported [id number] Can be viewed in source system Main OR PACU I Recordon -0 Main OR PACU I Record PACU Phase I Document Type FT Summary Primary Physician: Vanna Johnson MD Finalized Date/Time: 10/19/23 12:19:49 Pt. Name: BLUE SAN Tesfaye/Sex: 1975 Female Med Rec #: [id number] Physician: Vanna Johnson MD Financial #: [id number] Pt. Type: O Room/Bed: / Admit/Disch: 10/19/23 09:56:56 - Institution: Case Times PACU I FT Pre-Care Text: Identifies barriers to communication and implements measures to provide psychological support Develops individualized plan of care, and ensures continuity of care Maintains patient's dignity and privacy, and maintains patient confidentiality Identifies and reports philosophical, cultural, and spiritual beliefs and values Identifies individual values and wishes concerning care Implements aseptic technique, and administers prescribed antibiotic therapy and immunizing agents as ordered Evaluates postoperative tissue perfusion Implements thermoregulation measures, and monitors body temperature Evaluates postoperative respiratory status Evaluates postoperative cardiac status Evaluates postoperative neurological status Assesses pain control, collaborated in initiating patient-controlled analgesia and implements alternative methods of pain control Verifies allergies, administers prescribed medications and solutions, evaluates response to medications Entry 1 In PACU I 10/19/23 11:47:00 Discharge from PACU 10/19/23 12:17:00 I Outcomes Met? Yes Last Modified By: Daisy Escobar RN 10/19/23 12:19:31 Post-Care Text: The patient demonstrates knowledge of the expected response to the operative or invasive procedure The patient's care is consistent with the individualized perioperative plan of care The patient's right to privacy is maintained The patient's value system, lifestyle, ethnicity, and culture are considered, respected, and incorporated into the perioperative plan of care The patient participates in decisions affecting his or her perioperative plan of care The patient is free from signs and symptoms of infection The patient has wound/tissue perfusion consistent with or improved from baseline levels established preoperatively The patient is at or returning to normothermia at the conclusion of the immediate postoperative period The patient's respiratory function is consistent with or improved from baseline levels established preoperatively The patient's cardiovascular status is consistent with or improved from baseline levels established preoperatively The patient's cardiovascular status is consistent with or improved from baseline levels established preoperatively The patient demonstrates and/or reports adequate pain control throughout the perioperative period The patient received appropriate medication(s), safely administered during the perioperative period Acuity Level PACU I FT Entry 1 Start Time 10/19/23 11:47:00 Stop Time 10/19/23 12:17:00 Acuity Level Acuity Level I Last Modified By: Daisy Escobar RN 10/19/23 12:19:48 Finalized By: Daisy Escobar RN Document Signatures Signed By: Daisy Escobar RN 10/19/23 12:19 Normal [facility] Main OR Preoperative Recordo n 10-19-2023 Main OR Preoperative Record Holding Area Document Type FT Summary Primary Physician: Vanna Johnson MD Finalized Date/Time: 10/19/23 10:04:00 Pt. Name: BLUE SAN Tesfaye/Sex: 1975 Female Med Rec #: [id number] Physician: Vanna Johnson MD Financial #: [id number] Pt. Type: O Room/Bed: / Admit/Disch: 10/19/23 09:56:56 - Institution: Case Times Holding FT Pre-Care Text: Verifies consent for planned procedure, identifies individual values and wishes concerning care, includes family members in perioperative teaching Secures patient's records' belongings, and valuables, maintains patient's dignity and privacy, and maintains patient confidentiality Entry 1 In Holding 10/19/23 09:59:00 Outcomes Met? Yes Last Modified By: Yas Murphy RN 10/19/23 10:02:56 Post-Care Text: The patient participates in decisions affecting his or her perioperative plan of care The patient's right to privacy is maintained Surgery Checklist FT Entry 1 Patient Birthday, ID Band Procedure History and Physical, Identification: Check, Patient Verification: Surgical Consent, With Participation Patient NPO after Midnight: Yes Date/Time: 10/19/23 07:00:00 Personal Items: Jewelry Personal Items earrings, clothes, shoes Comment: Limitations: n/a Complaints of Pain: No Pain Comment: denies Operative Site n/a Marking: Marked By: n/a Availability Equipment Verified: Does Patient Smoke No Patient states Yes Comment - Adult Brody- spouse postop adult Supervision supervision available Case Cancelled in No Holding Area see comments below for reason Last Modified By: Yas Murphy RN 10/19/23 10:03:58 General Comments: Pt finished colon prep at 0700, states stool is clear liquid yellow. Has been NPO since. /TORI CHUA Finalized By: Yas Murphy RN Document Signatures Signed By: Yas Murphy RN 10/19/23 10:04 [facility] [place] 10-19-2023 [place] Record [id number]#[id number] [facility] Patient Education - Texton 1 12-20-2022 Patient Education - Text Nonsteroidal Anti-Inflammatory Medications (NSAIDS) Non-steroidal anti-inflammatory drugs (NSAIDs) are a medication widely used to treat a wide range of conditions. Common acute (short-term) conditions that can be treated with NSAIDs include: ? headaches ? painful periods ? toothache ? soft tissue injuries such as sprains and strains ? reduce inflammation (redness and swelling) ? infections, such as the common cold or the flu (NSAIDs do not treat the underlying infections, but can help to relieve symptoms; especially fever) Common chronic (long-term) conditions that can be treated with NSAIDs include: ? most types of arthritis, including rheumatoid arthritis and osteoarthritis ? back pain ? neck pain Some NSAIDs are available [id number]-dno-[id number], without the need for a prescription. However, because a medication is available over the counter it does not mean it is safe or suitable for everyone. Again, it is important to read the patient information leaflet that comes with your medication. NSAID drugs include: Brand: Generic: Bufferin; Dexter Aspirin; ASA Celebrex Celecoxib Zipsor; Cambia Diclofenac Motrin; Advil Ibuprofen Indosin Indometacin Actron; Orudis Ketoprofen Toradol Ketorolac Mobic Meloxicam Ponstel Mefenamic Acid Aleve; Naprosyn Naproxen Side effects: Most people take NSAIDs without having any side effects. Short term use is unlikely to cause significant problems, especially in younger patients. If side effects do occur they usually affect the stomach and can include: ? Indigestion ? Nausea ? Stomach pain ? Stomach ulcer ? Bleeding from the stomach and intestines Other side effects: ? Ringing in the ears ? itching ? Poor control of asthma ? Headache ? Allergic reactions NSAIDs are also not usually recommended for people who: ? are or ? have a history of kidney disease ? have a history of liver disease ? have active stomach ulcers (a sore in the lining of the stomach), or are at risk of developing stomach ulcers How to take NSAIDS: NSAIDS should be taken in the pill form or given by injection. If you are taking the pill form, it is best to take with food to avoid an upset stomach. IF a dose is missed: Some of these medications are taken ?as needed.? Do not take more of your NSAID than your doctor has prescribed. Follow the xngu-nje-qhsveoh labels and do not exceed the recommended dosage. If you take an NSAID daily, take the missed dose of your medication as soon as you remember it. If it is too close to the time for your next dose, skip the missed dose and go back to taking this medication at your normal time. Do not take two doses of this medication at the same time or take any extra doses of this medication. If any questions regarding your medications, contact your physician or pharmacist. Colonoscopy Care After Surgery Please read the instructions outlined below and refer to this sheet in the next few weeks. These discharge instructions provide you with general information on caring for yourself after you leave the hospital. Your doctor may also give you specific instructions. While your treatment has been planned according to the most current medical practices available, unavoidable complications occasionally occur. If you have any problems or questions after discharge, please call your doctor. ACTIVITY You may resume your regular activity, but move at a slower pace for the next 24 hours. Take frequent rest periods for the next 24 hours. Walking will help get rid of the air and reduce the bloated feeling in your abdomen (belly). No driving for 24 hours (because of the anesthesia (medicine) used during the test). You may shower. Do not sign any important legal documents or operate any machinery for 24 hours (because of the anesthesia used during the test). NUTRITION Drink plenty of fluids. You may resume your normal diet as instructed by your doctor. Begin with a light meal and progress to your normal diet. Heavy or fried foods are harder to digest and may make you feel nauseated (sick to your stomach). Avoid alcoholic beverages for 24 hours or as instructed. MEDICATIONS You may resume your normal medications unless your doctor tells you otherwise. WHAT YOU CAN EXPECT TODAY Some feelings of bloating in the abdomen. Passage of more gas than usual. Spotting of blood in your stool or on the toilet paper. FOLLOW-UP Your doctor will discuss the results of your test with you. SEEK IMMEDIATE MEDICAL ATTENTION IF: There is more than a spotting of blood in your stool. There is abdominal distention (your abdomen is swollen). There is vomiting. You have a temperature over 101.5 F. There is abdominal pain or discomfort that is severe or gets worse throughout the day. Normal [facility] Insurance Correspondenceon 1 12-05-2022 Insurance Correspondence [id number]#[id number] Normal [facility] Lab Reportson 09-16-2023 Lab Reports [id number]#[id number] [facility] Consent for Procedure/Surger yon 09-15-2023 Consent for Procedure/Surgery [id number]#1.00TIFF [facility] Ambulatory Visit Summaryon 1 Ambulatory Visit Summary BLUE SAN :1975 Visit Date:09/13/2023 Ambulatory Visit Instructions Your Diagnosis Diarrhea Fecal urgency Screen for colon cancer Your Care Team Attending Physician - Renata Strong CNP Primary Care Physician - Otf Metzger DO Referring Physician - Otf Metzger DO This Is Your Medications List Contact prescribing physician if questions or concerns cyclobenzaprine diazepam (diazepam 5 mg Tab) ferrous sulfate metoprolol (Lopressor 25 mg oral tablet) ondansetron (Zofran 4 mg Tab) Procedures Performed Bowel dysfunction, Breast reduction, Colonoscopy, Gallbladder. Discharge Vitals Temperature (Temporal Artery) 36.4 ?C Heart Rate (Peripheral) 106 Blood Pressure 122/86 Height 170.1 cm Height 67 in Weight 72.1 kg Weight 158.62 lb BMI 24.92 What to do next You Need to Schedule the Following Appointments Follow Up with Renata Strong CNP When: Within 1 to 2 weeks Comments: Following Colonoscopy. Where: You Need to Complete the Following CBC w/ Auto Diff, Blood, Routine collect, 09/13/23, Order for future visit, Lab Collect, Diarrhea Invalid Interpretation Code Fecal urgency, Print Label By Order Location\.br\ Comprehensive Metabolic Panel, Blood, Routine collect, 09/13/23, Order for future visit, Lab Collect, Diarrhea [facility] Gastroenterology Office/Clin ic Noteon 09-13-2023 Gastroenterology Office/Clinic Note Chief Complaint Colonoscopy HPI Staff This is a 47 year old female who presents today to schedule a colonoscopy. Patient was referred by Dr Metzger. History of Present Illness Patient is a 47-year-old female who presents for referral from her PCP?Dr. Metzger for colonoscopy. Review of outside record patient brought into office today indicated patient had cholecystectomy at [facility] 01/2015. Patient reports having small bowel resection in 2014 related to perforation in small bowel (ileocecectomy). Reports hx. endometrial ablation 6 months ago. Family history of colon cancer: Denies. Family history of colon polyps: Denies. Personal history of colon cancer: Denies. Personal history of colon polyps: Denies. Anticoagulation therapy: Denies. Antiplatelet therapy: Denies. During today's visit, patient reports she is having 2-3 BMs daily. Patient reports having previous colonoscopy 20 years ago that was reportedly normal- no record to review during today's encounter. She explains she has been having watery diarrhea with fecal urgency 2 times a week over the last 8 years. Otherwise, has formed BMs. Denies black/bloody stools, nausea/vomiting, fevers/chills, abdominal pain, acid reflux, dysphagia, and denies unintentional weight loss. Denies use of fiber supplementation. Denies having any other GI complaints. Review of Systems ROS - Provider Constitutional: no fever, no chills. Skin: no Jaundice. ENMT: Denies dysphagia and heartburn. Respiratory: no shortness of breath. Cardiovascular: no chest pain. Gastrointestinal: no nausea, no vomiting, no diarrhea, no GI bleeding. Physical Exam Vitals & Measurements T: 36.4 ?C(Temporal Artery) HR: 106(Peripheral) BP: 122/86 HT: 67 in HT: 170.1 cm WT: 72.1 kg WT: 158.62 lb BMI: 24.92 General: Well developed, well nourished, in no acute distress Head: Normocephalic/atraumatic Lungs: Normal respiratory effort and clear to auscultation Cardio: Regular rate and rhythm, normal S1 and S2, no murmur, no rub Abdomen: Soft, non-distended, non-tender. Normoactive bowel sounds present in all 4 abdominal quadrants, bilaterally. Mental Status: Alert and oriented x3. Normal mood and affect Assessment/Plan 1. Diarrhea (R19.7: Diarrhea, unspecified) Patient reportedly had small bowel resection in 2014 related to perforation in small bowel (ileocecectomy). Is having watery diarrhea with fecal urgency 2 times a week over the last 8 years since ileocecectomy. Educated to start fiber supplementation daily- metamucil 1 capsule daily- separate 2 hours from other medications. Educated to ensure she is drinking adequate amount of water daily. Patient reports she spoke with Dr. Johnson previously and was told he would use pediatric scope for colonoscopy. Ordered CBC/CMP, TSH- patient reports having labs with PCP- instructed to bring in record regarding. Ordered stool testing to evaluate for infectious process- patient reports she will think about having completed. Ordered Colonoscopy. Denies anticoagulation therapy. Ordered: CBC w/ Auto Diff Clostridium Difficile PCR Colonoscopy (Hospital Procedure) Comprehensive Metabolic Panel Enteric Panel by PCR Fecal WBC Lactoferrin Giardia lamblia, Direct Detection EIA O & P Exam, Routine Thyroid Stimulating Hormone 2. Fecal urgency (R15.2: Fecal urgency) Patient reportedly had small bowel resection in 2014 related to perforation in small bowel (ileocecectomy). Is having watery diarrhea with fecal urgency 2 times a week over the last 8 years. Educated to start fiber supplementation daily- metamucil 1 capsule daily- separate 2 hours from other medications. Educated to ensure she is drinking adequate amount of water daily. Ordered Colonoscopy. Denies anticoagulation therapy. Ordered: CBC w/ Auto Diff Clostridium Difficile PCR Colonoscopy (Hospital Procedure) Comprehensive Metabolic Panel Enteric Panel by PCR Fecal WBC Lactoferrin Giardia lamblia, Direct Detection EIA O & P Exam, Routine Thyroid Stimulating Hormone 3. Screen for colon cancer (Z12.11: Encounter for screening for malignant neoplasm of colon) Patient reportedly had small bowel resection in 2014 related to perforation in small bowel (ileocecectomy). Is having watery diarrhea with fecal urgency 2 times a week over the last 8 years since ileocecectomy. Educated to start fiber supplementation daily- metamucil 1 capsule daily- separate 2 hours from other medications. Educated to ensure she is drinking adequate amount of water daily. Ordered Colonoscopy. Denies anticoagulation therapy. Ordered: Colonoscopy (Hospital Procedure) Follow-up With When Contact Information Renata Strong CNP Within 1 to 2 weeks Additional Instructions: Following Colonoscopy. Patient Education Colonoscopy, Adult Problem List/Past Medical History Ongoing Atrial tachycardia Diarrhea Fecal urgency Screen for colon cancer Historical Gallblad (more content not included)... Normal [facility] Comment on above: Result Comment: Elec tronically Signed By: Renata Strong CNP\.br\Date and Time Signed: 09/13/23 09:10 EDT Physician Referralon 023 Physician Referral [id number] Normal [facility] CBC AUTO DIFFon 03-04-2023 BASO # 0.0 103/ul Normal 0.0-0.1 [facility] Comment on above: Performed By: #### C BC #### [facility] [address] [place] [address] Dr. Easton Rubi Basophils/100 WBC (Bld) 0.8 % Normal 0.2-2.0 [facility] Comment on above: Performed By: #### C BC #### [facility] [address] [address] [address] Easton Rubi EO # 0.1 103/ul Normal 0.0-0.7 [facility] Comment on above: Performed By: #### C BC #### [facility] [address] [address] [address] Easton Rubi Eosinophils/100 WBC (Bld) 2.4 % Normal 0.9-7.0 [facility] Comment on above: Performed By: #### C BC #### [facility] [address] [address] [address] Easton Rubi Erythrocyte distribution width (RBC) [Ratio] 12.5 % Normal 11.0-15.0 [facility] Comment on above: Performed By: #### C BC #### [facility] [address] [address] [address] Easton Rubi Hematocrit (Bld) [Volume fraction] 39.4 % Normal 36.0-48.0 [facility] Comment on above: Performed By: #### C BC #### [facility] [address] [place] [address] Dr. Easton Rubi Hemoglobin (Bld) [Mass/Vol] 13.2 g/dL Normal 12.0-16.0 [facility] Comment on above: Performed By: #### C BC #### [facility] [address] [place] [address] Dr. Easton Rubi IG # 0.01 10e3/ul Normal 0.00-0.03 [facility] Comment on above: Performed By: #### C BC #### [facility] [address] [place] [address] Dr. Easton Rubi IG % 0.2 % Normal 0.0-0.5 [facility] Comment on above: Performed By: #### C BC #### [facility] [address] [place] [address] Dr. Easton Rubi LYMPH # 1.9 103/ul Normal 1.2-3.8 [facility] Comment on above: Performed By: #### C BC #### [facility] [address] [place] [address] Dr. Easton Rubi Lymphocytes/100 WBC (Bld) 36.9 % Normal 20.5-60.0 [facility] Comment on above: Performed By: #### C BC #### [facility] [address] [place] [address] Dr. Easton Rubi MANUAL DIFF REQ NO Normal [facility] Comment on above: Performed By: #### C BC #### [facility] [address] [place] [address] Dr. Easton Rubi MCH (RBC) [Entitic mass] 28.3 pg Normal 26.7-34.0 [facility] Comment on above: Performed By: #### C BC #### [facility] [address] [place] [address] Dr. Easton Rubi MCHC (RBC) [Mass/Vol] 33.5 g/dL Normal 29.9-35.2 [facility] Comment on above: Performed By: #### C BC #### [facility] [address] [address] [address] Easton Rubi MCV (RBC) [Entitic vol] 84.5 fL Normal 81.0-99.0 [facility] Comment on above: Performed By: #### C BC #### [facility] [address] [address] [address] Easton Rubi MONO # 0.4 103/ul Normal 0.3-0.8 [facility] Comment on above: Performed By: #### C BC #### [facility] [address] [place] [address] Dr. Easton Rubi Monocytes/100 WBC (Bld) 8.3 % Normal 1.7-12.0 [facility] Comment on above: Performed By: #### C BC #### [facility] [address] [place] [address] Dr. Easton Rubi NEUT # 2.6 103/ul Normal 1.4-6.5 [facility] Comment on above: Performed By: #### C BC #### [facility] [address] [place] [address] Dr. Easton Rubi Neutrophils/100 WBC (Bld) 51.4 % Normal 43.0-75.0 [facility] Comment on above: Performed By: #### C BC #### [facility] [address] [place] [address] Dr. Easton Rubi Platelet mean volume (Bld) [Entitic vol] 11.0 fL Normal 9.5-13.5 [facility] Comment on above: Performed By: #### C BC #### [facility] [address] [place] [address] Dr. Easton Rubi PLT 294 103/ul Normal 150-450 [facility] Comment on above: Performed By: #### C BC #### [facility] [address] [place] [address] Dr. Easton Rubi RBC 4.66 106/ul Normal 4.20-5.40 [facility] Comment on above: Performed By: #### C BC #### [facility] [address] [place] [address] Dr. Easton Rubi WBC 5.0 103/ul Normal 4.0-11.0 [facility] Comment on above: Performed By: #### C BC #### [facility] [address] [place] [address] Dr. Easton Rubi PREG QUANT HCGon 03-04-2023 HCG QUANT <1 Normal [facility] Comment on above: Performed By: #### P REGQNT #### [facility] [address] [place] [address] Dr. Easton Rubi HCG RANGE SEE BELOW Normal [facility] Comment on above: Result Comment: 5-50 0.2-1 WEEK 50-500 1-2 WEEKS 100-5,000 2-3 WEEKS 500-10,000 3-4 WEEKS 1,000-50,000 4-5 WEEKS 10,000-100,000 5-6 WEEKS 15,000-200,000 6-8 WEEKS 10,000-100,000 2-3 MONTHS Performed By: #### P REGQNT #### [facility] [address] [place] [address] Dr. Easton Rubi PAP ACOG PANEL 2: 30 to 65on 02-15-2023 . . Normal [facility] Comment on above: Result Comment: Perf ormed at: WB Performed By: #### [id number] #### [facility] [address] [place] [address] Dr. Easton Rubi Age Gdln ACOG Testing 30-65 Normal [facility] Comment on above: Performed By: #### [id number] #### [facility] [address] [place] [address] Dr. Easton Rubi DIAGNOSIS: Comment Normal [facility] Comment on above: Result Comment: NEGA TIVE FOR INTRAEPITHELIAL LESION OR MALIGNANCY. Performed at: WB Performed By: #### [id number] #### [facility] [address] [place] [address] Dr. Easton Rubi HPV Aptima Negative Normal Negative [facility] Comment on above: Result Comment: This nucleic acid amplification test detects fourteen high-risk HPV types (16,18,31,33,35,39,45,51,52,56,58,59,66,68) without differentiation. Performed at: =G Performed By: #### [id number] #### [facility] [address] [place] [address] Dr. Easton Rubi HPV Genotype Reflex Comment Normal [facility] Comment on above: Result Comment: Crit erson not met, HPV Genotype not performed. Performed at: WB Performed By: #### [id number] #### [facility] [address] [place] [address] Dr. Easton Rubi Methodology: Comment Normal [facility] Comment on above: Result Comment: This liquid based ThinPrep(R) pap test was screened with the use of an image guided system. Performed at: WB Performed By: #### [id number] #### [facility] [address] [place] [address] Dr. Easton Rubi Note: Comment Normal [facility] Comment on above: Result Comment: The Pap smear is a screening test designed to aid in the detection of premalignant and malignant conditions of the uterine cervix. It is not a diagnostic procedure and should not be used as the sole means of detecting cervical cancer. Both false-positive and false-negative reports do occur. . Performed at: WB Performed By: #### [id number] #### [facility] [address] [place] [address] Dr. Easton Rubi Performed by: Comment Normal [facility] Comment on above: Result Comment: Richard Francois Dip Painter (ASCP) Performed at: WB Performed By: #### [id number] #### [facility] [address] [place] [address] Dr. Easton Rubi Specimen adequacy: Comment Normal [facility] Comment on above: Result Comment: Sati sfactory for evaluation. Endocervical and/or squamous metaplastic cells (endocervical component) are present. Performed at: WB Performed By: #### [id number] #### [facility] [address] [place] [address] Dr. Easton Rubi AFP (TUMOR MARKER)on 023 AFP, Serum, Tumor Marker <1.8 Normal 0.0-6.4 [facility] Comment on above: Result Comment: [employer] Electrochemiluminescence Immunoassay (ECLIA) . Values obtained with different assay methods or kits cannot be used interchangeably. Results cannot be interpreted as absolute evidence of the presence or absence of malignant disease. . This test is not interpretable in females. Performed By: #### A FP. #### [facility] [address] [address] [address] Easton Rubi CA 125on 01-29-2023 Cancer Antigen (CA) 125 13.6 U/mL Normal 0.0-38.1 [facility] Comment on above: Result Comment: [employer] Electrochemiluminescence Immunoassay (ECLIA) . Values obtained with different assay methods or kits cannot be used interchangeably. Results cannot be interpreted as absolute evidence of the presence or absence of malignant disease. Performed By: #### C A 125 #### [facility] [address] [place] [address] Dr. Easton Rubi CEAon 01-29-2023 CEA 2.3 ng/mL Normal 0.0-4.7 [facility] Comment on above: Result Comment: Nons mokers <3.9 Smokers <5.6 . [employer] Electrochemiluminescence Immunoassay (ECLIA) . Values obtained with different assay methods or kits cannot be used interchangeably. Results cannot be interpreted as absolute evidence of the presence or absence of malignant disease. Performed By: #### C EA. #### [facility] [address] [place] [address] Dr. Easton Rubi HCG QUANT TUMOR MARKERon HCG QNT TUMOR MARKER <1 Normal [facility] Comment on above: Result Comment: Fema le (Non-) 0 - 5 (Postmenopausal) 0 - 8 . [employer] [employer] Electrochemiluminescence Immunoassay (ECLIA) . The [employer] HCG + beta assay recognizes the holo-hormone, human chorionic gonadotropin (hCG), nicked forms of hCG, the beta-core fragment and the free beta-subunit in human serum and plasma. . Results obtained with different test methods or kits cannot used interchangeably. This assay is intended for the early detection of . The result should not be used for treatment or for diagnostic purposes without confirmation of the diagnosis by another medically established diagnostic product or procedure. . This test was developed and its performance characteristics determined by [employer]. It has not been cleared or approved by the Food and Drug Administration for use as a tumor marker. . This test is not interpretable as a tumor marker in females. Performed By: #### H CGTMOR #### [facility] [address] [place], [place] [address] Dr. Easton Rubi LDHon 01-27-2023 LDH 130 U/L Normal 81-234 [facility] Comment on above: Performed By: #### L #### [facility] [address] [place], [place] [address] Dr. Easton Rubi US PELVIS AND TRANSVAGon US PELVIS AND TRANSVAG EXAMINATION: US PELVIS AND TRANSVAG HISTORY: Irregular periods COMPARISON: 12/28/2021 FINDINGS: The uterus is normal in size, contour and echotexture with no focal myometrial mass. The uterus is anteverted. Uterus measures 9.9 x 4.5 x 6.5 cm. The endometrium measures 13.8 mm, normal. The right ovary measures 6.1 x 3.3 x 4.3 cm. Normal color and Doppler flow. Area of anechoic echogenicity measuring 3.4 x 3.1 x 3.2 cm, simple cyst. The left ovary measures 5.1 x 4.1 x 4.9 cm. Normal color Doppler flow. Area of complex avascular hypoechogenicity measuring 3.4 x 2.8 x 3.9 cm, complex cyst versus hemorrhagic cyst versus endometrioma No free fluid IMPRESSION: 3.4 cm right ovarian simple cyst 3.4 cm left ovarian cystic lesion, complex cyst versus hemorrhagic cyst versus endometrioma Electronically authenticated by: OTF KUMAR Date: 2023-01-20 06:51 Normal [facility] Vital Signs Date Time Vital Sign Value Performing Clinician Facility 03-05-2024 15:43-0400 Body height 170.18 cm [facility] 03-05-2024 15:43040 Body mass index (BMI) [Ratio] 25.5 kg/m2 [facility] 03-05-2024 15:43-040 Body temperature 98.1 [degF] [facility] 03-05-2024 15:43-0400 Body weight 73.93 kg [facility] 03-05-2024 15:43-0400 Diastolic blood pressure 72 mm[Hg] [facility] 03-05-2024 15:43-0400 Heart rate 74 /min [facility] 03-05-2024 15:43-0400 SaO2% (BldA) [Mass fraction] 98 % [facility] 03-05-2024 15:43-0400 Systolic blood pressure 116 mm[Hg] [facility] 10-19-2023 12:10-0500 Heart rate 80 /min Prabhakar Sarmini [facility] 10-19-2023 12:10-0500 Respiratory rate 10 /min Prabhakar Sarmini [facility] 10-19-2023 12:05-0500 Diastolic blood pressure 75 mm[Hg] Prabhakar Sarmini [facility] 10-19-2023 12:05-0500 Heart rate 89 /min Prabhakar Sarmini [facility] 10-19-2023 12:05-0500 Mean blood pressure 90 mm[Hg] Prabhakar Sarmini [facility] 10-19-2023 12:05-0500 Respiratory rate 17 /min Prabhakar Sarmini [facility] 10-19-2023 12:05-0500 SaO2% (BldA) [Mass fraction] 100 % Prabhakar Sarmini [facility] 10-19-2023 12:05-0500 Systolic blood pressure 120 mm[Hg] Prabhakar Sarmini [facility] 10-19-2023 12:00-0500 Diastolic blood pressure 79 mm[Hg] Prabhakar Sarmini [facility] 10-19-2023 12:00-0500 Heart rate 81 /min Prabhakar Sarmini [facility] 10-19-2023 12:00-0500 Mean blood pressure 89 mm[Hg] Prabhakar Sarmini [facility] 10-19-2023 12:00-0500 Respiratory rate 20 /min Prabhakar Sarmini [facility] 10-19-2023 12:00-0500 Systolic blood pressure 108 mm[Hg] Prabhakar Sarmini [facility] 10-19-2023 11:55-0500 Diastolic blood pressure 82 mm[Hg] Prabhakar Sarmini [facility] 10-19-2023 11:55-0500 Mean blood pressure 90 mm[Hg] Prabhakar Sarmini [facility] 10-19-2023 11:55-0500 SaO2% (BldA) [Mass fraction] 100 % Prabhakar Sarmini [facility] 10-19-2023 11:55-0500 Systolic blood pressure 107 mm[Hg] Prabhakar Sarmini [facility] 10-19-2023 11:47-0500 Blood Pressure Location Prabhakar Sarmini [facility] 10-19-2023 11:47-0500 Body temperature 97.34 [degF] Prabhakar Sarmini [facility] 10-19-2023 11:39-0500 Respiratory rate 15 /min Prabhakar Sarmini [facility] 10-19-2023 11:35-0500 Respiratory rate 15 /min Prabhakar Sarmini [facility] 10-19-2023 11:30-0500 Respiratory rate 15 /min Prabhakar Sarmini [facility] 10-19-2023 10:10-0500 Blood Pressure Location Prabhakar Sarmini [facility] 10-19-2023 10:07-0500 Blood Pressure Location Prabhakar Fabianmini [facility] 10-19-2023 10:07-0500 Body temperature 97.52 [degF] Prabhakar Fabianmini [facility] 09-13-2023 08:35-0400 Blood Pressure Location Renata Holleymetz [facility] 09-13-2023 08:35-0400 Body temperature 97.52 [degF] Renata Ligia [facility] 09-13-2023 08:35-0400 Diastolic blood pressure 86 mm[Hg] Renata Ligia [facility] 09-13-2023 08:35-0400 Heart rate 106 /min Renata Holleymetz [facility] 09-13-2023 08:35-0400 Systolic blood pressure 122 mm[Hg] Renata Ligia [facility] 08-22-2023 16:00-0400 Body height 170.18 cm Otf Metzger Other [facility] Other 08-22-2023 16:00-0400 Body mass index (BMI) [Ratio] 24.43 kg/m2 Ot[facility] Metzger Other [facility] Other 08-22-2023 16:00-0400 Body temperature 98.8 [degF] Otf Radhaadrian Other [facility] Other 08-22-2023 16:00-0400 Body weight 70.76 kg Otf Jamilah Other [facility] Other 08-22-2023 16:00-0400 Diastolic blood pressure 78 mm[Hg] Ot[facility] Metzger Other [facility] Other 08-22-2023 16:00-0400 Respiratory rate 18 /min Ot[facility] Metzger Other [facility] Other 08-22-2023 16:00-0400 SaO2% (BldA) [Mass fraction] 98 % Ot[facility] Metz[facility] Other [facility] Other 08-22-2023 16:00-0400 Systolic blood pressure 112 mm[Hg] Ot[facility] Metzger Other [facility] Other 09-25-2021 10:50-0500 Body height 170.18 cm Otf Metzger Other [facility] Other 09-25-2021 10:50-0500 Body mass index (BMI) [Ratio] 24.59 kg/m2 Ot[facility] Metzger Other [facility] Other 09-25-2021 10:50-0500 Body temperature 97 [degF] Ot[facility] Metz[facility] Other [facility] Other 09-25-2021 10:50-0500 Body weight 71.22 kg Otf Metzger Other [facility] Other 09-25-2021 10:50-0500 Diastolic blood pressure 80 mm[Hg] Ot[facility] Metzger Other [facility] Other 09-25-2021 10:50-0500 Respiratory rate 18 /min Ot[facility] Metzger Other [facility] Other 09-25-2021 10:50-0500 SaO2% (BldA) [Mass fraction] 97 % [facility] Metz[facility] Other [facility] Other 09-25-2021 10:50-0500 Systolic blood pressure 122 mm[Hg] [facility] Other [facility] Other Encounters Encounter Date Encounter Type Care Provider Facility Start: 03-28-2024 End: 03-28-2024 ambulatory YOHAN WILSON [facility] Start: 03-08-2024 End: 03-09-2024 ambulatory Otf Metzger Facility:[facility] [place] Start: 03-08-2024 End: 03-08-2024 Patient encounter procedure Otf Metzger [facility] Start: 03-05-2024 End: 03-05-2024 ambulatory [facility] Work Phone: Start: 03-05-2024 End: 03-05-2024 Patient encounter procedure [facility] Physician [facility] Work Phone: Start: 02-27-2024 Non-patient / Non-visit [facility] Physician [facility] Work Phone: Start: 02-24-2024 End: 02-25-2024 ambulatory SELF REFERRAL Facility:[facility] [place] Start: 02-24-2024 End: 02-24-2024 Patient encounter procedure SELF REFERRAL [facility] Start: 01-17-2024 Refill Yohan Wilson MD Work Phone: [facility] Comment on above: Cysts of both ovarie s Start: 12-05-2023 End: 12-05-2023 ambulatory Ot[facility] Metzger Other [facility] Other Start: 12-05-2023 Telephone encounter Otf Metzger [facility] Start: 10-19-2023 End: 10-20-2023 ambulatory Vanna Johnson Facility:[facility] [place] Start: 10-19-2023 End: 10-19-2023 Patient encounter procedure Vanna Johnson [facility] Start: 09-29-2023 End: 09-29-2023 ambulatory SILVIO QUIGLEY Not Available Start: 09-13-2023 End: 09-14-2023 ambulatory Otf Metzger Facility:[facility] Start: 09-13-2023 End: 09-13-2023 Patient encounter procedure Renata Ratliff [facility] Start: 08-24-2023 End: 11-23-2023 ambulatory Tian Saxena Facility:[facility] [place] Start: 08-22-2023 End: 08-22-2023 ambulatory Ot[facility] Metzger Other [facility] Other Start: 08-22-2023 Office outpatient vi sit 25 minutes Otf Metzger [facility] Start: 07-06-2023 End: 07-06-2023 ambulatory Otf Metzger Other [facility] Other Start: 07-06-2023 Telephone encounter Otf Metzger [facility] Start: 05-02-2023 End: 05-02-[address] SILVIO QUIGLEY . Facility:[facility] Start: 05-02-2023 Telephone encounter Otf Metzger [facility] Start: 03-04-2023 End: 03-04-[address] SILVIO QUIGLEY . Facility:[facility] Start: 02-28-2023 Encounter for preprocedural cardiovascular examination DR SILVIO QUIGLEY . [facility] Start: 02-22-2023 End: 02-23-[address] SILVIO QUIGLEY . Facility:[facility] Start: 02-22-2023 End: 02-23-2023 Encounter for preprocedural cardiovascular examination DR SILVIO QUIGLEY . Facility:[facility] Start: 02-11-[address] SILVIO QUIGLEY . Facili ty:[facility] Start: 02-08-2023 End: 02-08-[address] SILVIO UQIGLEY . Facility:[facility] Start: 01-27-2023 End: 01-28-[address] SILVIO QUIGLEY . Facility:[facility] Start: 01-24-2023 End: 01-24-2023 ambulatory Otf Metzger Other [facility] Other Start: 01-24-2023 Telephone encounter Otf Metzger [facility] Start: 01-19-2023 End: 01-20-[address] SILVIO QUIGLEY . Facility:[facility] Start: 01-10-2023 End: 01-10-2023 ambulatory Otf Metzger Other [facility] Other Start: 01-10-2023 Telephone encounter Otf Metzger [facility] Start: 11-12-2022 End: 11-12-2022 Patient encounter procedure Otf Metzger [facility] Start: 10-25-2022 End: 10-25-2022 ambulatory Otf Metzger Other [facility] Other Start: 10-25-2022 Telephone encounter Otf Metzger [facility] Start: 07-26-2022 End: 07-26-2022 ambulatory Otf Metzger Other [employer] [employer] Other Start: 07-26-2022 Telephone encounter Otf Metzger [facility] Start: 07-20-2022 End: 07-20-2022 Patient encounter procedure Otf Metzger [facility] Start: 03-10-2022 End: 03-10-2022 ambulatory Otf Metzgre Other [facility] Other Start: 03-10-2022 Telephone encounter Otf Metzger [facility] Start: 09-25-2021 End: 09-25-2021 ambulatory Otf Metzger Other [facility] Other Start: 09-25-2021 Office outpatient vi sit 15 minutes Otf Metzger [facility] Start: 11-23-2018 End: 11-24-2018 Patient encounter procedure DEFAULT PHYSICIAN Facility:[facility] Start: 10-31-2018 End: 11-01-2018 Patient encounter procedure DEFAULT PHYSICIAN Facility:[facility] Procedures Date Procedure Procedure Detail Performing Clinician Start: 10-19-2023 Colonoscopy Vanna banuelos Bowel dysfunction (disorder) Otf Metzger Comment on above: recestion Colonoscopy Renata Holleymetz Comment on above: 20 years ago Gallbladder structur e (body structure) Otf Metzger Reduction mammoplasty Otf Metzger Plan of Treatment Date Care Activity Detail Author Start: 10-26-2024 Adult BMI Screening Adult BMI Screening [facility] Start: 10-26-2024 Tobacco Screening Tobacco Screening [facility] Start: 09-03-2024 DTaP,Tdap and Td Vaccines (2 - Td or Tdap) DTaP,Tdap and Td Vaccines (2 - Td or Tdap) [facility] Start: 03-28-2024 End: 03-28-2024 Patient encounter procedure 03/28/2024 9:30 AM EDT Office Visit [facility] [address] [place] [address] [address] [place] [address] Yohan Wilson MD [address] [place] [address], [address] [place] [address] [facility] Start: 07-15-2023 COVID-19 Vaccine ( season) COVID-19 Vaccine ( season) [facility] Start: 1998 Screening for malignant neoplasm of cervix Pap Smear [facility] Start: 1995 Adult BMI Follow Up Plan Adult BMI Follow Up Plan [facility] Start: 1989 Depression Screening Depression Screening [facility] Comprehensive metabo lic 1999 panel - Serum or Plasma [facility] Immunizations Immunization Date Immunization Notes Care Provider Fa cility 08-29-2023 influenza virus vaccine, unspecified formulation Renata Strong [facility] Comment on above: Reason for Medicatio n: Prophylaxis 09-02-2022 influenza virus vaccine, unspecified formulation Otf Metzger [facility] Comment on above: Reason for Medicatio n: Prophylaxis 09-02-2022 influenza, injectabl e, quadrivalent, preservative free Otf Metzger Other [facility] 11-20-2021 COVID-19 Vaccine Moderna - Documentation Purposes Only Otf Metzger Other [facility] Comment on above: Reason for Medicatio n: Prophylaxis 08-26-2021 influenza virus vaccine, unspecified formulation Otf Metzger [facility] Comment on above: Reason for Medicatio n: Prophylaxis 08-17-2021 influenza, seasonal, injectable Otf Metzger Other [facility] 12-18-2020 COVID-19 Vaccine Moderna - Documentation Purposes Only Otf Metzger Other [facility] 11-20-2020 COVID-19 Vaccine Moderna - Documentation Purposes Only Otf Metzger Other [facility] 09-03-2014 influenza virus vaccine, unspecified formulation Renata Strong [facility] 09-03-2014 tetanus and diphther ia toxoids, adsorbed, preservative free, for adult use (5 Lf of tetanus toxoid and 2 Lf of diphtheria toxoid) [facility] 09-03-2014 tetanus toxoid, redu carina diphtheria toxoid, and acellular pertussis vaccine, adsorbed Otf Metzger Other [facility] Payers Date Payer Category Payer Private Health Insurance [id number] 2004 Private Health Insurance AEZoeTIA Ratliff BRENDATIA POS II [id number] 2004-Present [phone] [address] [place] [address] [id number] 1977 Unknown [id number] 2.16.840.1.246952.3.579.2 .647 1977 Unknown [id number] 2.16.840.1.773588.3.579.2 .647 1977 Unknown [id number] 2.16.840.1.825776.3.579.2 .593 1977 Unknown [id number] 2.16.840.1.693439.3.579.2 .593 1977 Unknown [id number] 2.16.840.1.052598.3.579.2 .593 1977 Unknown [id number] 2.16.840.1.621006.3.579.2 .593 1977 Unknown [id number] 2.16.840.1.115897.3.579.2 .593 1977 Unknown [id number] 2.16.840.1.807766.3.579.2 .593 1977 Unknown [id number] 2.16.840.1.778933.3.579.2 .593 1977 Unknown [id number] 2.16.840.1.209996.3.579.2 .1259 1977 Unknown [id number] 2.16.840.1.335788.3.579.2 .727 1977 Unknown [id number] 2.16.840.1.411323.3.579.2 .727 1977 Unknown [id number] 2.16.840.1.425569.3.579.2 .727 1977 Unknown [id number] 2.16.840.1.648015.3.579.2 .727 1977 Unknown [id number] 2.16.840.1.554965.3.579.2 .727 1977 Unknown [id number] 2.16.840.1.176793.3.579.2 .727 1977 Unknown [id number] 2.16.840.1.197102.3.579.2 .1286 1959 Private Health Insurance [id number] 1957 Self-pay [id number] Self-pay Self Pay [id number] Unknown Unknown [employer] [place] [id number] Social History Date Type Detail Facility Unknown if ever smoked [facility] Other Start: 04-23-2019 End: 10-26-2023 Sex Assigned At [employer] Other Start: 11-24-2019 End: 09-13-2023 Tobacco smoking status Never smoked tobacco (finding) [facility] Tobacco smoking status Never [facility] Start: 10-26-2023 Tobacco use and exposure Smokeless tobacco non-user [facility] Start: 10-26-2023 Alcohol intake Ex-drinker (finding) [facility] Start: 04-23-2019 End: 10-26-2023 History of Social function [facility] Start: 1975 Sex Assigned At Not on file P [facility] Start: 1975 Sex Assigned At Female F [facility] Functional Status Date Assessment Result Facility 10-19-2023 Functional Status N/A [facility] 09-13-2023 Functional Status N/A [facility] Clinical Notes 06-22-2018 to 12-05-2023 Note Date & Type Note Facility 12-05-2023 Evaluation note Encounter Date Diagnosis Assessment Notes Nov, Iron deficiency anemia (ICD-10 - D50.9) [facility] Other 12-07-2023 Note [id number] Discharge instructions Patient Education 10/19/2023 11:53:28 [facility] [place] NSAIDS-Nonsteroidal Anti-Inflammatory Medications (CUSTOM) AvoidNonsteroidal Anti-Inflammatory Medications (NSAIDS) Non-steroidal anti-inflammatory drugs (NSAIDs) are a medication widely used to treat a wide range of conditions. Common acute (short-term) conditions that can be treated with NSAIDs include: headaches painful periods toothache soft tissue injuries such as sprains and strains reduce inflammation (redness and swelling) infections, such as the common cold or the flu (NSAIDs do not treat the underlying infections, but can help to relieve symptoms; especially fever) Common chronic (long-term) conditions that can be treated with NSAIDs include: most types of arthritis, including rheumatoid arthritis and osteoarthritis back pain neck pain Some NSAIDs are available afxt-glp-btzmecp, without the need for a prescription. However, because a medication is available over the counter it does not mean it is safe or suitablefor everyone. Again, it is important to read the patient information leaflet that comes with your medication. NSAID drugs include: Brand: Generic: Bufferin; Dexter Aspirin; ASA Celebrex Celecoxib Zipsor; Cambia Diclofenac Motrin; Advil Ibuprofen Indosin Indometacin Actron; Orudis Ketoprofen Toradol Ketorolac Mobic Meloxicam Ponstel Mefenamic Acid Aleve; Naprosyn Naproxen Side effects: Most people take NSAIDs without having any side effects. Short term use is unlikely to cause significant problems, especially in younger patients. If side effects do occur they usually affect the stomach and can include: Indigestion Nausea Stomach pain Stomach ulcer Bleeding from the stomach and intestines 10/19/2023 11:52:58 Colonoscopy, Care After Surgery Anayeli (CUSTOM) Colonoscopy Care After Surgery Please read the instructions outlined below and refer to this sheet in the next few weeks. These discharge instructions provide you with general information on caring for yourself after you leave thespital. Your doctor may also give you specific instructions. While your treatment has been planned according to the most current medical practices available, unavoidable complications occasionally occur. If you have any problems or questions after discharge, please call your doctor. ACTIVITY You may resume your regular activity, but move at a slower pace for the next 24 hours. Take frequent rest periods for the next 24 hours. Walking will help get rid of the air and reduce the bloated feeling in your abdomen (belly). No driving for 24 hours (because of the anesthesia (medicine) used during the test). You may shower. Do not sign any important legal documents or operate any machinery for 24 hours (because of the anesthesia used during the test). NUTRITION Drink plenty of fluids. You may resume your normal diet as instructed by your doctor. Begin with a light meal and progress to your normal diet. Heavy or fried foods are harder to digestand may make you feel nauseated (sick to your stomach). Avoid alcoholic beverages for 24 hours or as instructed. MEDICATIONS You may resume your normal medications unless your doctor tells you otherwise. WHAT YOU CAN EXPECT TODAY Some feelings of bloating in the abdomen. Passage of more gas than usual. Spotting of blood in your stool or on the toilet paper. FOLLOW-UP Your doctor will discuss the results of your test with you. SEEK IMMEDIATE MEDICAL ATTENTION IF: There is more than a spotting of blood in your stool. There is abdominal distention (your abdomen is swollen). There is vomiting. You have a temperature over 101.5 F. There is abdominal pain or discomfort that is severe or gets worse throughout the day. Follow Up Care 09/13/2023 09:19:49 With:Elizabeth CHUA, SANTA Fernandez, [facility] Address: [address] [place], [place] [address]ra[address], [address] [id number]- [id number] When: Unknown Comments:Office Will Call Date and Time of Follow-up Appt. [facility]10-31-2023 Evaluation + Plan note Future Scheduled Tests Laboratory* Fecal WBC Lactoferrin 09/13/23 * Giardia lamblia, Direct Detection EIA 09/13/23 * O & P Exam, Routine 09/13/23 * Clostridium Difficile PCR 09/13/23 * Enteric Panel by PCR 09/13/23 * CBC w/ Auto Diff 09/13/23 * Comprehensive Metabolic Panel 09/13/23 * Thyroid Stimulating Hormone 09/13/23 [facility]10-31-2023 Hospital Discharge instructions Patient Education 09/13/2023 08:50:01 Colonoscopy, Adult Colonoscopy, Adult A colonoscopy is a procedure to look at the entire large intestine. This procedure is done using a long, thin, flexible tube that has a camera on the end. You may have a colonoscopy: As a part of normal colorectal screening. If you have certain symptoms, such as: ?A low number of red blood cells in your blood (anemia). ?Diarrhea that does not go away. ?Pain in your abdomen. ?Blood in your stool. A colonoscopy can help screen for and diagnose medical problems, including: An abnormal growth of cells or tissue (tumor). Abnormal growths within the lining of your intestine (polyps). Inflammation. Areas of bleeding. Tell your health care provider about: Any allergies you have. All medicines you are taking, including vitamins, herbs, eye drops, creams, and otvs-mfr-ptdoloh medicines. Any problems you or family members have had with anesthetic medicines. Any bleeding problems you have. Any surgeries you have had. Any medical conditions you have. Any problems you have had with having bowel movements. Whether you are or may be . What are the risks? Generally, this is a safe procedure. However, problems may occur, including: Bleeding. Damage to your intestine. Allergic reactions to medicines given during the procedure. Infection. This is rare. What happens before the procedure? Eating and drinking restrictions Follow instructions from your health care provider about eating or drinking restrictions, which mayinclude: A few days before the procedure: ?Follow a low-fiber diet. ?Avoid nuts, seeds, dried fruit, raw fruits, and vegetables. 1 3 days before the procedure: ?Eat only gelatin dessert or ice pops. ?Drink only clear liquids, such as water, clear juice, clear broth or bouillon, black coffee or tea, or clear soft drinks or sports drinks. ?Avoid liquids that contain red or purple dye. The day of the procedure: ?Do not eat solid foods. You may continue to drink clear liquids until up to 2 hours before the procedure. ?Do not eat or drink anything starting 2 hours before the procedure, or within the time period thatyour health care provider recommends. Bowel prep If you were prescribed a bowel prep to take by mouth (orally) to clean out your colon: Take it as told by your health care provider. Starting the day before your procedure, you will needto drink a large amount of liquid medicine. The liquid will cause you to have many bowel movements of loose stool until your stool becomes almost clear or light green. If your skin or the opening between the buttocks (anus) gets irritated from diarrhea, you may relieve the irritation using: ?Wipes with medicine in them, such as adult wet wipes with aloe and vitamin E. ?A product to soothe skin, such as petroleum jelly. If you vomit while drinking the bowel prep: ?Take a break for up to 60 minutes. ?Begin the bowel prep again. ?Call your health care provider if you keep vomiting or you cannot take the bowel prep without vomiting. To clean out your colon, you may also be given: ?Laxative medicines. These help you have a bowel movement. ?Instructions for enema use. An enema is liquid medicine injected into your rectum. Medicines Ask your health care provider about: Changing or stopping your regular medicines or supplements. This is especially important if you aretaking iron supplements, diabetes medicines, or blood thinners. Taking medicines such as aspirin and ibuprofen. These medicines can thin your blood. Do not take these medicines unless your health care provider tells you to take them. Taking bnzo-pyk-pekqqyk medicines, vitamins, herbs, and supplements. General instructions Ask your health care provider what steps will be taken to help prevent infection. These may includewashing skin with a germ-killing soap. If you will be going home right after the procedure, plan to have a responsible adult: ?Take you home from the hospital or clinic. You will not be allowed to drive. ? Care for you for the time you are told. What happens during the procedure? An IV will be inserted into one of your veins. You will be given a medicine to make you fall asleep (general anesthetic). You will lie on your side with your knees bent. A lubricant will be put on the tube. Then the tube will be: ?Inserted into your anus. ?Gently eased through all parts of your large intestine. Air will be sent into your colon to keep it open. This may cause some pressure or cramping. Images will be taken with the camera and will appear on a screen. A small tissue sample may be removed to be looked at under a microscope (biopsy). The tissue may besent to a lab for testing if any signs of problems are found. If small polyps are found, they may be removed and checked for cancer cells. When the procedure is finished, the tube will be removed. The procedure may vary among health care providers and hospitals. What happens after the procedure? Your blood pressure, heart rate, breathing rate, and blood oxygen level will be monitored until youleave the hospital or clinic. You may have a small amount of blood in your stool. You may pass gas and have mild cramping or bloating in your abdomen. This is caused by the air thatwas used to open your colon during the exam. If you were given a sedative during the procedure, it can affect you for several hours. Do not drive or operate machinery until your health care provider says that it is safe. It is up to you to get the results of your procedure. Ask your health care provider, or the department that is doing the procedure, when your results will be ready. Summary A colonoscopy is a procedure to look at the entire large intestine. Follow instructions from your health care provider about eating and drinking before the procedure. If you were prescribed an oral bowel prep to clean out your colon, take it as told by your health care provider. During the colonoscopy, a flexible tube with a camera on its end is inserted into the anus and thenpassed into all parts of the large intestine. This information is not intended to replace advice given to you by your health care provider. Make sure you discuss any questions you have with your health care provider. Document Revised: 10/25/2022 Document Reviewed: 06/23/2022 [employer] Patient Education 2022 [employer]. Follow Up Care 08/26/2023 11:00:38 With:Renata Strong CNP Address: When:1 to 2 weeks Comments:Following Colonoscopy. [facility] 10-31-2023 NoteRadiology Colonoscopy, Adult A colonoscopy is a procedure to look at the entire large intestine. This procedure is done using a long, thin, flexible tube that has a camera on the end. You may have a colonoscopy: ? As a part of normal colorectal screening. ? If you have certain symptoms, such as: ? A low number of red blood cells in your blood (anemia). ? Diarrhea that does not go away. ? Pain in your abdomen. ? Blood in your stool. A colonoscopy can help screen for and diagnose medical problems, including: ? An abnormal growth of cells or tissue (tumor). ? Abnormal growths within the lining of your intestine (polyps). ? Inflammation. ? Areas of bleeding. Tell your health care provider about: ? Any allergies you have. ? All medicines you are taking, including vitamins, herbs, eye drops, creams, and nccn-kgk-kppwnjv medicines. ? Any problems you or family members have had with anesthetic medicines. ? Any bleeding problems you have. ? Any surgeries you have had. ? Any medical conditions you have. ? Any problems you have had with having bowel movements. ? Whether you are or may be . What are the risks? Generally, this is a safe procedure. However, problems may occur, including: ? Bleeding. ? Damage to your intestine. ? Allergic reactions to medicines given during the procedure. ? Infection. This is rare. What happens before the procedure? Eating and drinking restrictions Follow instructions from your health care provider about eating or drinking restrictions, which mayinclude: ? A few days before the procedure: ? Follow a low-fiber diet. ? Avoid nuts, seeds, dried fruit, raw fruits, and vegetables. ? 1?3 days before the procedure: ? Eat only gelatin dessert or ice pops. ? Drink only clear liquids, such as water, clear juice, clear broth or bouillon, black coffee or tea, or clear soft drinks or sports drinks. ? Avoid liquids that contain red or purple dye. ? The day of the procedure: ? Do not eat solid foods. You may continue to drink clear liquids until up to 2 hours before the procedure. ? Do not eat or drink anything starting 2 hours before the procedure, or within the time period that your health care provider recommends. Bowel prep If you were prescribed a bowel prep to take by mouth (orally) to clean out your colon: ? Take it as told by your health care provider. Starting the day before your procedure, you will need to drink a large amount of liquid medicine. The liquid will cause you to have many bowel movements of loose stool until your stool becomes almost clear or light green. ? If your skin or the opening between the buttocks (anus) gets irritated from diarrhea, you may relieve the irritation using: ? Wipes with medicine in them, such as adult wet wipes with aloe and vitamin E. ? A product to soothe skin, such as petroleum jelly. ? If you vomit while drinking the bowel prep: ? Take a break for up to 60 minutes. ? Begin the bowel prep again. ? Call your health care provider if you keep vomiting or you cannot take the bowel prep without vomiting. ? To clean out your colon, you may also be given: ? Laxative medicines. These help you have a bowel movement. ? Instructions for enema use. An enema is liquid medicine injected into your rectum. Medicines Ask your health care provider about: ? Changing or stopping your regular medicines or supplements. This is especially important if you are taking iron supplements, diabetes medicines, or blood thinners. ? Taking medicines such as aspirin and ibuprofen. These medicines can thin your blood. Do not take these medicines unless your health care provider tells you to take them. ? Taking kvjq-rrg-qfsafrt medicines, vitamins, herbs, and supplements. General instructions ? Ask your health care provider what steps will be taken to help prevent infection. These may include washing skin with a germ-killing soap. ? If you will be going home right after the procedure, plan to have a responsible adult: ? Take you home from the hospital or clinic. You will not be allowed to drive. ? Care for you for the time you are told. What happens during the procedure? ? An IV will be inserted into one of your veins. ? You will be given a medicine to make you fall asleep (general anesthetic). ? You will lie on your side with your knees bent. ? A lubricant will be put on the tube. Then the tube will be: ? Inserted into your anus. ? Gently eased through all parts of your large intestine. ? Air will be sent into your colon to keep it open. This may cause some pressure or cramping. ? Images will be taken with the camera and will appear on a screen. ? A small tissue sample may be removed to be looked at under a microscope (biopsy). The tissue may be sent to a lab for testing if any signs of problems are found. ? If small polyps are found, they may be removed and checked for cancer cells. (more content not included)...[facility]10-09-2023 Evaluation note* Encounter Date Diagnosis Assessment Notes Treatment Notes Treatment Clinical Notes Aug, Spastic colon (ICD-1 0 - K58.9) She would like to see Dr. Johnson for evaluation who will do a colonoscopy on her, one will be provided. She voices that he assured her he will take his time with her. She is cautious because of all her abdominal trauma she has had in the past. She rarely takes the Diazepam and never takes it any day that she has to work. She would like to stop the Diazepam and try Bentyl to see if this works as good as the Diazepam does, so she does not have to be seen every three months. We discussed the Bentyl but right now she is going to wait on that medication. An OARRS report was printed and reviewed, no discrepancies noted. Frequent appointments needed due to addiction potential of medication. Pain inventory sheet completed and reviewed if opiod medication given. Pain contract is on file if pertinent. Patient will have office visits every three months for evaluation or sooner if needed. I discussed addiction potential of medication with the patient. Discussed with the patient and provided a treatment plan including the use of non-opiod analgesics and non-pharmacologica l intervention with patient if treated for pain. We have discussed realistic benefits and known risks of opiod/controlled therapy and the expected benefits for both pain and function. These benefits outweigh the risks. Patient has been counselled on the dangers of combining opiods/controlled prescriptions with alcohol or other sedatives and counseled on the safe storage and disposal of opiods/controlled prescriptions. Do not drive or operate heavy machinery after taking opiod/controlled medication. I have verified that no current substance abuse treatments are being prescribed. Aug, Iron deficiency anemia (ICD-10 - D50.9) Her HGB is 14.3. Iron is 76. Ferritin is 54. I would like her to continue to take her iron every other day. I asked her to start Vitamin C to help absorb the Iron. Aug, Hyperthyroidism (ICD-10 - E05.90) Her TSH is 3.120. Free T3 is 2.5. Free T4 is 1.06. I would like to continue to monitor. Aug, Hyperglycemia (ICD-1 0 - R73.9) Discussed blood sugar results with patient today. Glucose is 82. HgA1C is 5.5 which is normal. Aug, Chronic migraine (ICD-10 - G43.709) Continue with above medication daily as directed. Aug, Breast cancer screening (ICD-10 - Z12.31) Provided her with an order to have a bilateral mammogram done. Aug, Weight loss (ICD-10 - R63.4) She has lost one pound since last seen. Parakey Other 06-19-2023 Evaluation note* Encounter Date Diagnosis Assessment Notes Treatment Notes Treatment Clinical Notes Apr, Spastic colon (ICD-10 - K58.9) Parakey Other 04-21-2023 NoteOPERATIVE NOTE OPERATION DATE: 03/04/2023 PROCEDURE: Ama endometrial ablation with hysteroscopy. PREOPERATIVE DIAGNOSIS: Menorrhagia. POSTOPERATIVE DIAGNOSIS: Menorrhagia. ANESTHESIA: General. SURGEON: Silvio Quigley D.O. REFRIGERATION INSTALLER: None. BLOOD LOSS: 5 mL. URINE OUTPUT: Yellow and clear. FINDINGS: Both ostia seen. No gross evidence of polyps, fibroid or malignancy. SPECIMEN: None. PROCEDURE: The patient was taken back to the OR where she was prepped and draped in the normal sterile fashion after being placed in the dorsal lithotomy position, after being placed under general anesthesia without difficulty. A weighted speculum was placed into the vagina. The anterior lip was grasped with a single tooth tenaculum. The patient was then sounded to approximated 10 cm. The patient's cervix was gently dilated using Hegar dilators. The hysteroscope was passed through the cervix into the uterus where both ostia were seen. No gross evidence of polyps, fibroids or malignancy. The cervical length was noted to be 5 cm. The total cavity length is 5 cm. The Ama ablation apparatus was set to approximately 5 cm in length. This was placed through the cervix and into the uterus. After the seal was tested, at that time the total ablation of 120 seconds was performed with the Ama without difficulty. All instruments were removed from the vagina. Excellent hemostasis noted. Sponge and lap count correct times 2. Patient taken to recovery in stable condition.[facility] [id number] Evaluation note* Encounter Date Diagnosis Assessment Notes Treatment Notes Treatment Clinical Notes Jan, Spastic colon (ICD-10 - K58.9) Parakey Other 02-27-2023 Evaluation note* Encounter Date Diagnosis Assessment Notes Treatment Notes Treatment Clinical Notes Dec, Iron deficiency anemia (ICD-10 - D50.9) Parakey Other 12-12-2022 Evaluation note* Encounter Date Diagnosis Assessment Notes Treatment Notes Treatment Clinical Notes Oct, Iron deficiency anemia (ICD-10 - D50.9) Her hemoglobin level is 13.6. Iron is 61. Ferritin is 36. She voices that her menstrual period if heavy for the first 1-2 days and then may taper off. She is only taking the Iron every other day. We discussed her lab results, at this time I would like her to continue to take the Iron every other day. She feels she can eat more iron rich foods. She does eat meat but feels she could incorporate more iron into her diet. I did recommend that she try to eat more organ meats, spinach etc. Oct, Hyperthyroidism (ICD-10 - E05.90) She had treatment for her overactive thyroid and was seeing an silk screen printer machine in [place] for this in the past but has not been seeing anyone for this. She voices that they probably wanted her to follow up but she never did. She was on PTU for 1-2 years and then went to the cardiolgist and everything came back fine, she wore a Holter for three days, had an echocardiogram done and it was fine so she never followed up. I did advise her that I did not order any thyroid studies to be done because I thought she was following with an silk screen printer machine. She denies palpitations, weight loss, losing weight for no reason. She was on a beta antonio for awhile but then felt she did not need to be on it. She checks her pulse in the morning when she is at work and it will be in the one teens and then it comes down. I did recommend that she have her thyroid levels checked. If her levels are off she should return to see the silk screen printer machine. Call for results. Oct, Spastic colon (ICD-1 0 - K58.9) An OARRS report was reviewed, no discrepancies noted. Frequent appointments needed due to addiction potential of medication. She does continue to use and benefit from the above medication when needed. I will see her back in three months. Side effects/risks/benefi ts of medication were reviewed. Oct, Chronic migraine (ICD-10 - G43.709) Provided her with a new prescription for above medication today. Oct, Breast cancer screening (ICD-10 - Z12.31) I did provide her with an order to have a bilateral mammogram done. Oct, Other 4:47 PM - 4:58 PM Parakey Other 09-12-2022 Evaluation note* Encounter Date Diagnosis Assessment Notes Treatment Notes Treatment Clinical Notes Jul, Spastic colon (ICD-10 - K58.9) An OARRS report was reviewed no discrepancies noted. Frequent appointments needed due to addiction potential of medication. She does continue to use and benefit from the Diazepam but only uses it as needed. She can call for refills when needed. Side effects/risks/benefi ts of medication were reviewed. She does need to be seen every three months for evaluation. Jul, Iron deficiency anemia (ICD-10 - D50.9) Discussed blood work results with patient today. Her HGB is 13.9. Iron is 82. Ferritin is 35. She should continue to take her Iron every other day. I did recommend that she have her lab repeated again in three months. Jul, Chronic migraine (ICD-10 - G43.709) Continue with above medication as needed. Jul, Other long term care administrator (current) drug therapy (ICD-10 - Z79.899) Jul, Other 5:07 PM - 5:12 PM Parakey Other 09-06-2022 Evaluation + Plan note Diagnostic Tests Pending * [facility] 07/20/22 [facility]11-12-2021 Evaluation note* Encounter Date Diagnosis Assessment Notes Treatment Notes Treatment Clinical Notes Sep, Iron deficiency anemia (ICD-10 - D50.9) She is not craving ice any longer. Her Iron is 40. Ferritin is 22. HGB is 13.5. I would like her to continue with what she is doing. I did recommend that she repeat lab in three months. An order is provided. If her lab work results are good next time I anticipate we can cut back on her Iron supplement and then eventually check blood work again. She voices that ocassionally she will see blood in her stool but due to her bowel surgery this is normal for her. She has hemorrhoids and does see bright red blood at times, not black tarry stools. She has changed her diet and does not eat alot of meat any longer. Sep, Hyperthyroidism (ICD-10 - E05.90) She voices that an silk screen printer machine placed her on this. She ended up seeing a [place] doctor and had an echocardiogram done and a few other tests, everything else was normal and she did not follow up. She ran out of medication and no one would refill it for her, she has not been on the medication for several months. Her pulse today is normal but it does run high in the mornings but then it comes down. She is not having any hyperthyroid symptoms. She denies palpitations. She is not going to re-start the medication. Her thyroid levels were normal in June (2020) Sep, Spastic colon (ICD-1 0 - K58.9) She voices that if she has Diazepam available and uses it for spastic colon it does work very well for her. She may take this once or twice a month and usually two doses will take care of the issue. She understands that if she has the medication she has to be seen every three months for evaluation. An OARRS report was reviewed, no discrepancies noted. She can call for refills in between visits. Side effects/risks/benefi ts of medication were reviewed. Frequent appointments needed due to addiction potential of medication. Sep, Hyperglycemia (ICD-1 0 - R73.9) Her HgA1C is 5.4 which is normal. Sep, Migraine (ICD-10 - G43.909) She voices that she uses the above medication as needed when she has a migraine. She does not like to take Maxalt and does not have any of this medication. 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 Surgical History bowel resections Hospitalization History see surgical hx Hospitalization History childbirth Hospitalization History [facility] - heart racing 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 Surgical History bowel resections Surgical History endometrial ablation 02/2023 Hospitalization History see surgical hx Hospitalization History childbirth Hospitalization History [facility] ER - heart racing Parakey Other Evaluation + Plan note Future Appointments Appointment Date:10/19/2023 11:00:00 AM Scheduled Provider: Location:[facility] Appointment Type:Surgery FT Future Scheduled Tests Laboratory* Fecal WBC Lactoferrin 09/13/23 * Giardia lamblia, Direct Detection EIA 09/13/23 * O & P Exam, Routine 09/13/23 * Clostridium Difficile PCR 09/13/23 * Enteric Panel by PCR 09/13/23 * CBC w/ Auto Diff 09/13/23 * Comprehensive Metabolic Panel 09/13/23 * Thyroid Stimulating Hormone 09/13/23 [facility] Evaluation noteNo InformationNort Svbtle Other evaluation note* Diagnosis Cysts of both ovaries Other and unspecified ovarian cyst documented in this encounter [facility]* Diagnosis Onset Date Resolution Status Abnormal mammogram acute Hyperglycemia acute Hyperthyroidism acute Iron deficiency anemia acute Spastic colon acute Spider bite acute [facility] Work Phone: Hospital course Narrative No data available for this section [facility] No data available for this section [facility]ructionsNot on filedocumented in this encounter [facility] No data available for this section [facility] Summary Purpose Family History No Family History Records Found Relationship Condition Age at Onset Recorded Date/T ashley grandparent Unknown Advance Directives No Advanced Directives Records Found Advance Directive Response Recorded Date/ Time Advance Directives No June 27, 2018 7:15am Reason for Referral Reason appt pt needs cons ult with Dr. Johnson for a colonoscopy Diagnosis 1 Spastic colon (K58.9 ) Referral Organization [facility] Family Nam Robert Referring Provider First Name Otf Referring Provider Last Name Jamilah Referring Provider Specialty Family Prac nate Referred Organization [facility] Referred Provider Vanna Johnson Referred Address [address] [place] [address] [address] [place], [place],[address] Referred Provider Specialty Gastroentero logy Referral Priority Routine General Notes Monica Mueller 08/22/2023 04:22:21 PM > referral faxed to [facility] with visit note and insurance card. pt understands she will be contacted to schedule this appt. Chief Complaint and Reason for Visit Chief Complaint review labs Reason for Visit Abnormal mammogram Hyperglycemia Hyperthyroidism Iron deficiency anemia Spastic colon Spider bite Additional Source Comments INFORMATION SOURCE (unrecogn ized section and content) DATE CREATED AUTHOR 11/23/2018 [facility] DATE CREATED AUTHOR AUTHOR'S ORGANIZ ATION 03/11/2023 [facility] DATE CREATED AUTHOR AUTHOR'S ORGANIZ ATION 10/01/2023 [facility] EPIC DATE CREATED AUTHOR AUTHOR'S ORGANIZ ATION 03/10/2024 [facility] DATE CREATED AUTHOR AUTHOR'S ORGANIZ ATION 03/30/2024 [facility] REASON FOR VISIT (unrecogniz ed section and content) Reason Comments Med Refill Care Team (unrecognized sect ion and content) Facilities Maintenance Assistant Relationship Specialty Start Date End Date Otf Metzger DO [address] [place] [id number] PCP - General Family Medicine 10/26/23 Team Status: Active Member Role Status Dates Otf Metzger , Primary Care Provider Active Team Status: Active Member Role Status Dates Otf Metzger , DO Primary Care Provide r, Attending Provider Active Start: February 27, 2024 Team Status: Inactive Member Role Status Dates Otf Metzger , DO Primary Care Provide r, Attending Provider Active Start: March 05, 2024 End: March 05, 2024 Goals (unrecognized section and content) Goals may be documented in a n alternate section FOR RECORDS PERTAINING TO PATIENTS WHO ARE OR HAVE BEEN ENROLLED IN A CHEMICAL DEPENDENCY/SUBSTANCEABUSE PROGRAM, SOME INFORMATION MAY BE OMITTED. This clinical summary was aggregated from multiple sources. Caution should be exercised in using it in the provision of clinical care. This summary normalizes information from multiple sources, and as a consequence, information in this document may materially change the coding, format and clinical context of patient data. In addition, data may be omitted in some cases. CLINICAL DECISIONS SHOULD BE BASED ON THE PRIMARY CLINICAL RECORDS. [facility]. provides no warranty or guarantee of the accuracy or completeness of information in this document.
--- NOTE | 2024-07-22 15:00 | ED.GENADUL1 ---
HPI HPI - General Adult General Chief complaint: Headache Stated complaint: Headache Time Seen by Provider: 07/22/24 15:00 Source: patient Mode of arrival: walk-in Limitations: no limitations History of Present Illness HPI narrative: The patient have a known history of migraines coming to us after she started having an episode of migraine over the last 24 hours, he mentioned that she took some Flexeril and ibuprofen and it was not effective and controlling her headache The patient mentioned that the headache is not more than her regular migraine that is usually associated with photosensitivity and nausea No other complaints Related Data Home Medications ?Medication ?Instructions ?Recorded ?Confirmed ferrous sulfate 325 mg (65 mg 325 mg PO .COMPLEX 07/22/24 07/22/24 iron) tablet Allergies Allergy/AdvReac Type Severity Reaction Status Date / Time No Known Drug Allergies Allergy Verified 07/22/24 14:52 Opioid HPI Opioid Management Most Recent Opioid Data: Last Pain Scale 7 07/22/24 15:45 Last ED Pain Assessment 07/22/24 15:45 Review of Systems ROS Status of ROS 10 or more systems reviewed and unremarkable except as noted in history and below PFSH PFSH Social History Little interest or pleasure in doing things: not at all Feeling down, depressed, or hopeless: not at all Exam Narrative Exam Narrative: Nurses notes and vital signs reviewed and patient is not hypoxic. General: Well-appearing and in no apparent distress. Skin: Warm, dry, no pallor noted. No rash. Head: Normocephalic, atraumatic. Neck: Supple, non-tender. Eye: Pupils are equal, round and EOMI. No scleral icterus. Ears, Nose, Mouth, and Throat: TM are clear, no nasal mucosal hypertrophy. Oral mucosa is moist, no posterior oropharynx erythema, uvula is mid-line Cardiovascular: Regular Rate and Rhythm without murmur, gallop or rub. Respiratory: No accessory muscle use or respiratory distress. Lungs are clear to auscultation, no wheezing, rales or rhonchi Chest Wall: no tenderness Back: No midline thoracic or lumbar vertebral tenderness. No CVA tenderness Musculoskeletal: normal ROM, no calf or popliteal tenderness, no lower extremity edema/swelling GI: Abdomen is soft, non-distended. Normal bowel sounds. No masses appreciated. No tenderness to palpation. No rebound, guarding, or rigidity noted. Neurological: A&O x4. No cranial nerve dysfunction observed. No truncal ataxia. Moves all extremities. Sensation intact. Psychiatric: Cooperative and interactive. Normal mood and affect. Constitutional Vital Signs, click to edit/add: Last Vital Signs Temp 97.8 F 07/22/24 14:52 Pulse 68 07/22/24 15:43 Resp 18 07/22/24 15:43 BP 140/85 07/22/24 15:43 Pulse Ox 98 07/22/24 15:43 O2 Del Method Room Air 07/22/24 14:52 Course Vital Signs Vital signs: Vital Signs Temperature 97.8 F 07/22/24 14:52 Pulse Rate 129 H 07/22/24 14:52 Respiratory Rate 18 07/22/24 14:52 Blood Pressure 188/107 H 07/22/24 14:52 Pulse Oximetry 99 07/22/24 14:52 Oxygen Delivery Method Room Air 07/22/24 14:52 Temperature 97.8 F 07/22/24 14:52 Pulse Rate 68 07/22/24 15:43 Respiratory Rate 18 07/22/24 15:43 Blood Pressure 140/85 07/22/24 15:43 Pulse Oximetry 98 07/22/24 15:43 Oxygen Delivery Method Room Air 07/22/24 14:52 Medical Decision Making MDM Narrative Medical decision making narrative: The patient presented to us with a typical migraine attack she was treated in the ER with Toradol and Compazine as well as IV fluid after which she was feeling much better The patient is to follow up with primary care physician in next 2-3 days or to return to the emergency department should any of the signs or symptoms worsen or new symptoms develop. The patient agrees with the following Diagnosis and Treatment plan and the patient will be discharged home. Discharge Plan Discharge Chief Complaint: Headache Clinical Impression: Migraine Qualifiers: Migraine type: unspecified Status migrainosus presence: without status migrainosus Intractability: not intractable Qualified Code(s): G43.909 - Migraine, unspecified, not intractable, without status migrainosus Patient Disposition: Home, Self-Care Time of Disposition Decision: 16:04 Condition: Good Prescriptions / Home Meds: No Action ferrous sulfate 325 mg (65 mg iron) tablet 325 mg PO .COMPLEX Rx Instructions: 325 mg orally every other day; Print Language: Sinhala Instructions: Migraine Headache (ED) Referrals: OTF METZGER [Primary Care Provider] - 1 week
[2024-07-22] MEDS: PROCHLORPERAZINE 10 MG/2 ML VIAL 5 MG IV (15:10)
[2024-07-22] MEDS: KETOROLAC TROMETHAMINE 30 MG/ML VIAL 15 MG IVP (15:10)
[2024-07-22 15:43] VITALS: BP 140/85; PULSE 68; O2SAT 98
[2024-07-22] MEDS: 0.9 % SODIUM CHLORIDE 1,000 ML 1000 ML IV (15:54)
[2024-07-22 16:23] VITALS: BP 138/88; O2SAT 98
== END 2024-07-22 16:24 | disposition home or self-care (01) ==
PROVIDERS: Emergency Provider Emergency Medicine; PCP Family Medicine
DX: G43.909 Migraine, unspecified, not intractable, without status migrainosus (principal)
CPT/HCPCS: 96374; 96375; 99284; J0780; J1885

== ENCOUNTER 2024-09-27 07:53 | Outpatient (OUT) | payer OTHER, SELFPAY ==
--- NOTE | 2024-09-27 07:56 | US_ITS ---
[address] [address] Patient Name: BLUE SAN MRN: [id number] date: 1975 Sex: F Assigned Patient Location: Current Patient Location: Accession/Order Number: [id number] Exam Date: 09/27/2024 08:00 Report Date: 09/28/2024 04:32 At the request of: NON-STAFF PHYSICIAN Procedure: US pelvis w/ transvaginal EXAMINATION: US pelvis w/ transvaginal HISTORY: Ovarian Cyst COMPARISON: Ultrasound pelvis 03/08/2024 TECHNIQUE: Transabdominal and/or transvaginal sonographic examination was performed as indicated by examination type. FINDINGS: UTERUS: Normal size and appearance. Uterus size: 8.9 x 4.0 x 5.0 cm ENDOMETRIUM: Normal homogeneous appearance. Endometrial thickness: 7 mm RIGHT OVARY: Contains a heterogeneous avascular complex cysts, 5.1 cm in diameter. Contains a benign-appearing simple cysts, 4.0 cm in diameter. Duplex Doppler demonstrates normal waveform and flow; resistive index 0.5. Ovary size: 3.0 x 2.1 x 2.8 cm LEFT OVARY: Contains a heterogeneous avascular complex cyst, 2.5 cm in diameter. Contains a benign-appearing simple cyst, 4.2 cm in diameter. Duplex Doppler demonstrates normal waveform and flow; resistive index 0.7. Ovary size: 8.2 x 5.5 x 5.0 cm CUL-DE-SAC: Unremarkable. No significant free fluid. BLADDER: Unremarkable. OTHER: None. US/US pelvis w/ transvaginal IMPRESSION: 1. Both ovaries contain a similar-appearing complex cyst and benign-appearing simple cyst. Consider follow-up ultrasound evaluation in 6 weeks to document resolution. Electronically authenticated by: TEODORA STAHL Date: 09/28/2024 04:32
--- OUTSIDE RECORDS SUMMARY | 2024-09-27 07:57 | XMS_ITS | CCD ---
Author Organization [facility]iniSyaz Care Team Providers Care Product Ambassador Name Role Phone PHYSICIAN, DEFAULT Unavailable Unavailable PHYSICIAN, DEFAULT Unavailable Unavailable PHYSICIAN, DEFAULT Unavailable Unavailable PHYSICIAN, DEFAULT Unavailable Unavailable Otf Metzger Unavailable Otf Metzger Primary Care Physician [phone] KAYLI ., DR ANGUIANO Admitting Unavailable KAYLI ., DR ANGUIANO Attending Unavailable ARLEY, DR OTF Haro Consulting Unavailable AKYLI ., DR ANGUIANO Consulting Unavailable KAYLI ., DR ANGUIANO Admitting Unavailable KAYLI ., DR ANGUIANO Attending Unavailable KAYLI ., DR ANGUIANO Consulting Unavailable KAYLI ., DR ANGUIANO Admitting Unavailable KAYLI ., DR ANGUIANO Attending Unavailable KAYLI ., DR ANGUIANO Consulting Unavailable JL II, ADRIEL Consulting Unavailable FILLUCINA MONTERROSOICA Consulting Unavailable KAYLI ., DR ANGUIANO Admitting [...] Unavailable KAYLI ., DR ANGUIANO Consulting Unavailable SILVIO QUIGLEY Attending Unavailable Otf Metzger DO Primary Care Provider [phone] YOHAN WILSON Attending Unavailable OTF METZGER Referring Unavailable OTF METZGER Primary Care Unavailable Otf Metzger Admitting Unavailable Otf Metzger Attending Unavailable Otf Metzger Referring Unavailable TINA Randall Attending Unavailable Otf Metzger Referring Unavailable Renata Strong Attending Unavailable Vanna Johnson Admitting Unavaila Vanna So Attending Unavaila ble Elizabeth, Vanna Friedman Referring Unavaila ble REFERRAL, SELF Admitting Unavailable REFERRAL, SELF Attending Unavailable REFERRAL, SELF Referring Unavailable Otf Metzger Consulting Unavailable DO Otf Metzger Consulting Unavailable Medications Current Medications Medication Drug Class(es) [...] te Episodic/Chronic Other aftercare (1 source) 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 THE NIG[employer] CANC[employer] SOCIETY GUIDELINES RECOMMEND THAT WOMEN 40 [...] 2-Benign finding Recommendation: Normal interval follow-up Normal [facility] Physician Orderon 03-02-2024 Physician Order [id number]#1.00TIFF Normal [facility] Laboratory - Hematology and Cell countson 02-27-2024 HbA1c (Bld) [Mass fraction] 5.5 % [facility] [place] Mamm Screen w/CAD if perf [...] VERY IMPORTANT TO YOUR HEALTH. THE CURRENT NIG[employer]IEN COLLEGE OF RADIOLOGY AND NATIONAL COMPREHENSIVE CANCER [...] additional imaging evaluation Recommendation: Additional projections Normal [facility] Consent for Treatmenton 02-12 Consent for Treatment [id number]#1.00TIFF Normal [facility] Postoperative Documentson Postoperative Documents [id number]#1.00TIFF Normal [facility] IntraOperative Documentson 1 12-25-2022 IntraOperative Documents [id number]#1.00TIFF Normal [facility] Result Letter Officeon 10-24 Result Letter Office October 24, 2023 BLUE SAN [address] [place] [address] [place] [address] : 1975 Below is a summary of [...] if you wish to make an appointment. [facility] [phone] Normal [facility] Progress Note-Physicianon Progress Note-Physician Patient: BLUE SAN [...] All Problems Fecal urgency / SNOMED CT 834787061 / Confirmed Screen for colon cancer / SNOMED CT 560024767 / Confirmed Gallbladder attack / SNOMED CT 472452555 / Confirmed Diarrhea / SNOMED CT 131747693 / Confirmed Atrial tachycardia / SNOMED CT 234234671 / Confirmed Anxiety / SNOMED CT 71105142 / Confirmed Resolved: Perforated bowel / SNOMED CT [id number] 14J78285IY Resolved: Gallbladder / SNOMED CT 306841594 Canceled: Upper abdominal pain / SNOMED CT 813720405 Canceled: Abdominal cramping / SNOMED CT 255215195 Histories Procedure history: Breast reduction (096946611). Gallbladder (90652899). Bowel dysfunction (872137860). Comments: 08/27/2019 9:09 EDT - Esperanza Goodwin MA recestion Colonoscopy (158596079). Comments: 09/13/2023 8:36 EDT - Portia Mar 20 years ago Social History Social & Psychosocial Habits Tobacco 09/13/2023 Risk Assessment: Denies Tobacco Use 09/13/2023 Tobacco Use: Never (less than 100 in l Smokeless tobacco use: Never . Physical Examination Airway: Mallampati classification: II (soft palate, fauces, uvula visible). Respiratory: adequate air exchange. Cardiovascular: Regular rhythm. Plan [place] [employer] Anesthesiologists (ASA) physical status classification: Class II. Anesthetic Preoperative Plan: Anesthesia General. [facility] Comment on above: Result Comment: [...] when meets criteria ( To home ). [facility] Comment on above: Result Comment: Elec tronically Signed By: Delroy Dee Jr, DO\.br\Date and Time Signed: 10/21/23 07:35 EST Consenton 10-20-2023 Consent [id number]#1.00TIFF [facility] Discharge Instructionson Discharge Instructions [id number]#1.00TIFF [facility] Main OR Intraoperative Recor don 10-20-2023 Main OR Intraoperative Record IntraOp Document Type FT Summary Primary Physician: Vanna Johnson MD Finalized Date/Time: 10/20/23 15:32:49 Pt. Name: JASWINDER, BLUE /Sex: 1975 Female Med Rec #: [id number] Physician: Vanna Johnson MD Financial #: [id number] Pt. Type: O Room/Bed: / Admit/Disch: 10/19/23 [...] Attendee Amita CAA, Jim Chester, Zoey Strickland HOT IRON WORKER, Florencia Pardo Role Performed Anesthesiologist Scrub - Primary Staff - Other Sanitation Tank Washer Time In 10/19/23 11:19:00 10/19/23 11:19:00 10/19/23 11:19:00 Time Out 10/19/23 11:46:00 10/19/23 11:46:00 10/19/23 11:46:00 Procedure COLONOSCOPY(.) COLONOSCOPY(.) COLONOSCOPY(.) Comments supervising help in room Last Modified By: Clara RN, Heike Elizabeth RN, Heike Elizabeth RN, Heike 10/19/23 11:46:45 10/19/23 11:46:45 10/19/23 11:46:45 Entry 4 Entry 5 Case Attendee Elizabeth CHUA, Vanna Elizabeth RN, Heike Friedman Role Performed Surgeon - Primary Storage Management Architect - Primary Time In 10/19/23 11:19:00 10/19/23 [...] Spann, Given Participants Zoey Chester, Marco A HOT IRON WORKER, Florencia Pardo, Elizabeth CHUA, Vanna Friedman, Heike [...] and tissue Entry 1 Skin Integrity Intact, [place], Warm, and Skin Abnormality No Dry Outcomes [...] Position Lateral, (more content not included)... Normal [facility] Consent for Treatmenton Consent for Treatment [id number]#1.00TIFF Normal [facility] Discharge Instructionson Discharge Instructions BLUE SAN :1975 [...] Event Name Event Result Pharmacy Information Other: [facility]- [place], [place] New Follow Up Appointments after Discharge Follow Up with Elizabeth CHUA, Vanna Friedman, [facility] When: Comments: Office Will Call Date and Time of Follow-up Appt. Where: [address] [place] [address], [facility] [address] [phone] Medications What When Instructions Next Dose Unchanged [...] ? neck pain Some NSAIDs are available ilxt-pvf-jttjvvo, without the need for a prescription. However, [...] instructed. MEDICATION (more content not included)... Normal [facility] Comment on above: Result Comment: Elec [...] Ileocolonic anastomosis in the mid transverse likely stoj-yx-ojud anatomy, anastomosis widely open. 3. Cecum with [...] Ileocolonic anastomosis in the mid transverse likely zguz-uc-kscv anatomy, anastomosis widely open. 3. Cecum with normal IC valve and normal terminal ileum. Recommendations: Repeat colonoscopy:: In 10 years. Follow-up:: With primary care as previously scheduled. Diet:: Previous. Medication resumption:: Continue current medications, Avoid NSAIDs. Return to activities:: After 24 hours. Education and Follow-up: Counseled: Patient, Family. [facility] Comment on above: Result Comment: Elec tronically Signed By: Vanna Johnson MD\.br\Date and Time Signed: 10/19/23 11:47 EST Other Comment: Saritha ng Attachment - attachment storage system not supported [id number] Can be viewed in source system Missing Attachment - attachment storage system not supported [id number] Can be viewed in source system Missing Attachment - attachment storage system not supported [id number] Can be viewed in source system Missing Attachment - attachment storage system not supported [id number] Can be viewed in source system Missing Attachment - attachment storage system not supported [id number] Can be viewed in source system Missing Attachment - attachment storage system not supported 3591448 Can be viewed in source system Missing Attachment - attachment storage system not supported 6227586 Can be viewed in source system Missing Attachment - attachment storage system not supported 7353157 Can be viewed in source system Missing Attachment - attachment storage system not supported 9232329 Can be viewed in source system Missing Attachment - attachment storage system not supported 7860968 Can be viewed in source system Missing Attachment - attachment storage system not supported 1684766 Can be viewed in source system Missing Attachment - attachment storage system not supported 0475016 Can be viewed in source system Missing Attachment - attachment storage system not supported 0323779 Can be viewed in source system Main OR PACU I Recordon -0 Main OR PACU I Record PACU Phase I Document Type FT Summary Primary Physician: Vanna Johnson MD Finalized Date/Time: 10/19/23 12:19:49 Pt. Name: BLUE SAN Tesfaye/Sex: 1975 Female Med Rec #: [id number] Physician: Vanna Johnson MD Financial #: [id number] Pt. Type: O Room/Bed: / Admit/Disch: 10/19/23 [...] By: Daisy Escobar RN 10/19/23 12:19 Normal [facility] Main OR Preoperative Recordo n 10-19-2023 Main OR Preoperative Record Holding Area Document Type FT Summary Primary Physician: Vanna Johnson MD Finalized Date/Time: 10/19/23 10:04:00 Pt. Name: JASWINDER BLUEGaudencio Carlin/Sex: 1975 Female Med Rec #: [id number] Physician: Vanna Johnson MD Financial #: [id number] Pt. Type: O Room/Bed: / Admit/Disch: 10/19/23 [...] reason Last Modified By: Yas Murphy RN 12/06/23 10:03:58 General Comments: Pt finished colon prep at 0700, states stool is clear liquid yellow. Has been NPO since. /TORI CHUA Finalized By: Yas Murphy RN Document Signatures Signed By: Yas Murphy RN 10/19/23 10:04 [facility] Monitor Recordon 10-19-2023 Monitor Record [id number]#1.00TIFF [facility] Patient Education - Texton 1 12-20-2022 Patient [...] ? neck pain Some NSAIDs are available rpql-cqk-vxuiquw, without the need for a prescription. However, [...] than your doctor has prescribed. Follow the ztic-bnc-uwxiejr labels and do not exceed the recommended [...] or gets worse throughout the day. Normal [facility] Insurance Correspondenceon 1 12-05-2022 Insurance Correspondence [id number]#1.00TIFF Normal [facility] Consent for Procedure/Surger yon 09-15-2023 Consent for Procedure/Surgery [id number]#1.00TIFF [facility] Ambulatory Visit Summaryon 1 Ambulatory Visit Summary [...] Order for future visit, Lab Collect, Diarrhea [facility] Gastroenterology Office/Clin ic Noteon 09-13-2023 Gastroenterology Office/Clinic [...] office today indicated patient had cholecystectomy at [facility] 01/2015. Patient reports having small bowel [...] Historical Gallblad (more content not included)... Normal [facility] Comment on above: Result Comment: Elec tronically Signed By: Renata Strong CNP\thomas\Date and Time Signed: 09/13/23 09:10 EDT CBC AUTO DIFFon 03-04-2023 BASO # 0.0 103/ul Normal 0.0-0.1 [facility] Comment on above: Performed By: #### C BC #### [facility] [address] [address] [address] Easton Rubi Basophils/100 WBC (Bld) 0.8 % Normal 0.2-2.0 [facility] Comment on above: Performed By: #### C BC #### [facility] [address] [address] [address] Easton Rubi EO # 0.1 103/ul Normal 0.0-0.7 [facility] Comment on above: Performed By: #### C BC #### [facility] [address] [address] [address] Easton Rubi Eosinophils/100 WBC (Bld) 2.4 % Normal 0.9-7.0 [facility] Comment on above: Performed By: #### C BC #### [facility] [address] [address] [address] Easton Rubi Erythrocyte distribution width (RBC) [Ratio] 12.5 % Normal 11.0-15.0 [facility] Comment on above: Performed By: #### C BC #### [facility] [address] [address] [address] Easton Rubi Hematocrit (Bld) [Volume fraction] 39.4 % Normal 36.0-48.0 [facility] Comment on above: Performed By: #### C BC #### [facility] [address] [address] [address] Easton Rubi Hemoglobin (Bld) [Mass/Vol] 13.2 g/dL Normal 12.0-16.0 [facility] Comment on above: Performed By: #### C BC #### [facility] [address] [place] [address] Dr. Easton Rubi IG # 0.01 10e3/ul Normal 0.00-0.03 [facility] Comment on above: Performed By: #### C BC #### [facility] [address] [place] [address] Dr. Easton Rubi IG % 0.2 % Normal 0.0-0.5 [facility] Comment on above: Performed By: #### C BC #### [facility] [address] [place] [address] Dr. Easton Rubi LYMPH # 1.9 103/ul Normal 1.2-3.8 [facility] Comment on above: Performed By: #### C BC #### [facility] [address] [place] [address] Dr. Easton Rubi Lymphocytes/100 WBC (Bld) 36.9 % Normal 20.5-60.0 [facility] Comment on above: Performed By: #### C BC #### [facility] [address] [place] [address] Dr. Easton Rubi MANUAL DIFF REQ NO Normal [facility] Comment on above: Performed By: #### C BC #### [facility] [address] [place] [address] Dr. Easton Rubi MCH (RBC) [Entitic mass] 28.3 pg Normal 26.7-34.0 [facility] Comment on above: Performed By: #### C BC #### [facility] [address] [place] [address] Dr. Easton Rubi MCHC (RBC) [Mass/Vol] 33.5 g/dL Normal 29.9-35.2 [facility] Comment on above: Performed By: #### C BC #### [facility] [address] [place] [address] Dr. Easton Rubi MCV (RBC) [Entitic vol] 84.5 fL Normal 81.0-99.0 [facility] Comment on above: Performed By: #### C BC #### [facility] [address] [place] [address] Dr. Easton Rubi MONO # 0.4 103/ul Normal 0.3-0.8 [facility] Comment on above: Performed By: #### C BC #### [facility] [address] [place] [address] Dr. Easton Rubi Monocytes/100 WBC (Bld) 8.3 % Normal 1.7-12.0 [facility] Comment on above: Performed By: #### C BC #### [facility] [address] [place] [address] Dr. Easton Rubi NEUT # 2.6 103/ul Normal 1.4-6.5 [facility] Comment on above: Performed By: #### C BC #### [facility] [address] [place] [address] Dr. Easton Rubi Neutrophils/100 WBC (Bld) 51.4 % Normal 43.0-75.0 [facility] Comment on above: Performed By: #### C BC #### [facility] [address] [place] [address] Dr. Easton Rubi Platelet mean volume (Bld) [Entitic vol] 11.0 fL Normal 9.5-13.5 [facility] Comment on above: Performed By: #### C BC #### [facility] [address] [place] [address] Dr. Easton Rubi PLT 294 103/ul Normal 150-450 [facility] Comment on above: Performed By: #### C BC #### [facility] [address] [place] [address] Dr. Easton Rubi RBC 4.66 106/ul Normal 4.20-5.40 [facility] Comment on above: Performed By: #### C BC #### [facility] [address] [place] [address] Dr. Easton Rubi WBC 5.0 103/ul Normal 4.0-11.0 [facility] Comment on above: Performed By: #### C BC #### [facility] [address] [place] [address] Dr. Easton Rubi PREG QUANT HCGon 03-04-2023 HCG QUANT <1 Normal [facility] Comment on above: Performed By: #### P REGQNT #### [facility] [address] [address] [address] Easton Rubi HCG RANGE SEE BELOW Normal [facility] Comment on above: Result Comment: 5-50 0.2-1 WEEK 50-500 1-2 WEEKS 100-5,000 2-3 WEEKS 500-10,000 3-4 WEEKS 1,000-50,000 4-5 WEEKS 10,000-100,000 5-6 WEEKS 15,000-200,000 6-8 WEEKS 10,000-100,000 2-3 MONTHS Performed By: #### P REGQNT #### [facility] [address] [place] [address] Dr. Easton Rubi PAP ACOG PANEL 2: 30 to 65on 02-15-2023 . . Normal [facility] Comment on above: Result Comment: Perf ormed at: WB Performed By: #### [id number] #### [facility] [address] [place] [address] Dr. Easton Rubi Age Gdln ACOG Testing 30-65 [facility] Comment on above: Performed By: #### 4 [id number] #### [facility] [address] [place] [address] Dr. Easton Rubi DIAGNOSIS: Comment Normal [facility] Comment on above: Result Comment: NEGA TIVE FOR INTRAEPITHELIAL LESION OR MALIGNANCY. Performed at: WB Performed By: #### 4 [id number] #### [facility] [address] [place] [address] Dr. Easton Rubi HPV Aptima Negative Normal Negative [facility] Comment on above: Result Comment: This nucleic acid amplification test detects fourteen high-risk HPV types (16,18,31,33,35,39,45,51,52,56,58,59,66,68) without differentiation. Performed at: =G Performed By: #### 4 [id number] #### [facility] [address] [place] [address] Dr. Easton Rubi HPV Genotype Reflex Comment Normal [facility] Comment on above: Result Comment: Crit eria not met, HPV Genotype not performed. Performed at: WB Performed By: #### 4 [id number] #### [facility] [address] [place] [address] Dr. Easton Rubi Methodology: Comment Normal [facility] Comment on above: Result Comment: This liquid based ThinPrep(R) pap test was screened with the use of an image guided system. Performed at: WB Performed By: #### 4 [id number] #### [facility] [address] [place] [address] Dr. Easton Rubi Note: Comment Normal [facility] Comment on above: Result Comment: The Pap smear is a screening test designed to aid in the detection of premalignant and malignant conditions of the uterine cervix. It is not a diagnostic procedure and should not be used as the sole means of detecting cervical cancer. Both false-positive and false-negative reports do occur. . Performed at: WB Performed By: #### 4 [id number] #### [facility] [address] [place] [address] Dr. Easton Rubi Performed by: Comment Normal [facility] Comment on above: Result Comment: Richard Francois Window Shade Estimator (ASCP) Performed at: WB Performed By: #### 4 [id number] #### [facility] [address] [place] [address] Dr. Easton Rubi Specimen adequacy: Comment Normal [facility] Comment on above: Result Comment: Sati sfactory for evaluation. Endocervical and/or squamous metaplastic cells (endocervical component) are present. Performed at: WB Performed By: #### 4 [id number] #### [facility] [address] [place] [address] Dr. Easton Rubi AFP (TUMOR MARKER)on 023 AFP, Serum, Tumor Marker <1.8 Normal 0.0-6.4 [facility] Comment on above: Result Comment: [employer] Electrochemiluminescence Immunoassay (ECLIA) . Values obtained with different assay methods or kits cannot be used interchangeably. Results cannot be interpreted as absolute evidence of the presence or absence of malignant disease. . This test is not interpretable in females. Performed By: #### A FP. #### [facility] [address] [address] [address] Easton Rubi CA 125on 01-29-2023 Cancer Antigen (CA) 125 13.6 U/mL Normal 0.0-38.1 [facility] Comment on above: Result Comment: [employer] Electrochemiluminescence Immunoassay (ECLIA) . Values obtained with different assay methods or kits cannot be used interchangeably. Results cannot be interpreted as absolute evidence of the presence or absence of malignant disease. Performed By: #### C A 125 #### [facility] [address] [address] [address] Easton Rubi CEAon 01-29-2023 CEA 2.3 ng/mL Normal 0.0-4.7 [facility] Comment on above: Result Comment: Nons mokers <3.9 Smokers <5.6 . [employer] Electrochemiluminescence Immunoassay (ECLIA) . Values obtained with different assay methods or kits cannot be used interchangeably. Results cannot be interpreted as absolute evidence of the presence or absence of malignant disease. Performed By: #### C EA. #### [facility] [address] [place] [address] Dr. Easton Rubi HCG QUANT TUMOR MARKERon HCG QNT TUMOR MARKER <1 Normal [facility] Comment on above: Result Comment: Fema [...] developed and its performance characteristics determined by [employer]. It has not been cleared or approved by the Food and Drug Administration for use as a tumor marker. . This test is not interpretable as a tumor marker in females. Performed By: #### H CGTMOR #### [facility] [address] [address] [address] Easton Rubi LDHon 01-27-2023 LDH 130 U/L Normal 81-234 [facility] Comment on above: Performed By: #### L #### [facility] [address] [address] [address] Easton Rubi US PELVIS AND TRANSVAGon [...] by: OTF KUMAR Date: 2023-01-20 06:51 Normal [facility] Vital Signs Date Time Vital Sign Value Performing Clinician Facility 03-05-2024 15:43-0400 Body height 170.18 cm [facility] 03-05-2024 15:43-0400 Body mass index (BMI) [Ratio] 25.5 kg/m2 [facility] 03-05-2024 15:43-0400 Body temperature 98.1 [degF] [facility] 03-05-2024 15:43-0400 Body weight 73.93 kg [facility] 03-05-2024 15:43-0400 Diastolic blood pressure 72 mm[Hg] [facility] 03-05-2024 15:43-0400 Heart rate 74 /min [facility] 03-05-2024 15:43-0400 SaO2% (BldA) [Mass fraction] 98 % [facility] 03-05-2024 15:43-0400 Systolic blood pressure 116 mm[Hg] [facility] 10-19-2023 12:10-0500 Heart rate 80 /min Prabhakar Sarmini [facility] 10-19-2023 12:10-0500 Respiratory rate 10 /min Prabhakar Sarmini [facility] 10-19-2023 12:05-0500 Diastolic blood pressure 75 mm[Hg] Prabhakar Sarmini [facility] 10-19-2023 12:05-0500 Heart rate 89 /min Prabhakar Sarmini [facility] [facility] 10-19-2023 12:05-0500 Mean blood pressure 90 mm[Hg] Prabhakar Sarmini [facility] 10-19-2023 12:05-0500 Respiratory rate 17 /min Prabhakar Sarmini [facility] 10-19-2023 12:05-0500 SaO2% (BldA) [Mass fraction] 100 % Prabhakar Sarmini [facility] 10-19-2023 12:05-0500 Systolic blood pressure 120 mm[Hg] Parbhakar Sarmini [facility] 10-19-2023 12:00-0500 Diastolic blood pressure 79 mm[Hg] Prabhakar Sarmini [facility] 10-19-2023 12:00-0500 Heart rate 81 /min Prabhakar Sarmini [facility] 10-19-2023 12:00-0500 Mean blood pressure 89 mm[Hg] Prabhakar Sarmini [facility] 10-19-2023 12:00-0500 Respiratory rate 20 /min Prabhakar Sarmini [facility] 10-19-2023 12:00-0500 Systolic blood pressure 108 mm[Hg] Prabhakar Sarmini [facility] 10-19-2023 11:55-0500 Diastolic blood pressure 82 mm[Hg] Prabhakar Sarmini [facility] 10-19-2023 11:55-0500 Mean blood pressure 90 mm[Hg] Prabhakar Sarmini [facility] 10-19-2023 11:55-0500 SaO2% (BldA) [Mass fraction] 100 % Prabhakar Sarmini [facility] 10-19-2023 11:55-0500 Systolic blood pressure 107 mm[Hg] Prabhakar Sarmini [facility] 10-19-2023 11:47-0500 Blood Pressure Location Prabhakar Sarmini [facility] 10-19-2023 11:47-0500 Body temperature 97.34 [degF] Prabhakar Sarmini [facility] 10-19-2023 11:39-0500 Respiratory rate 15 /min Prabhakar Sarmini [facility] 10-19-2023 11:35-0500 Respiratory rate 15 /min Prabhakar Sarmini [facility] 10-19-2023 11:30-0500 Respiratory rate 15 /min Prabhakar Sarmini [facility] 10-19-2023 10:10-0500 Blood Pressure Location Prabhakar Sarmini [facility] 10-19-2023 10:07-0500 Blood Pressure Location Vanna Peraltamini [facility] 10-19-2023 10:07-0500 Body temperature 97.52 [degF] Vanna Cardenasi [facility] 09-13-2023 08:35-0400 Blood Pressure Location Renata Strogn [facility] 09-13-2023 08:35-0400 Body temperature 97.52 [degF] Renata Strong [facility] 09-13-2023 08:35-0400 Diastolic blood pressure 86 mm[Hg] Renata Holleymetz [facility] 09-13-2023 08:35-0400 Heart rate 106 /min Renata Strong [facility] 09-13-2023 08:35-0400 Systolic blood pressure 122 mm[Hg] Renata Holleymetz [facility] 08-22-2023 16:00-0400 Body height 170.18 cm Otf Metzger Other [facility] 08-22-2023 16:00-0400 Body mass index (BMI) [Ratio] 24.43 kg/m2 Otf Metzger Other [facility] 08-22-2023 16:00-0400 Body temperature 98.8 [degF] Otf Metzger Other [facility] 08-22-2023 16:00-0400 Body weight 70.76 kg Otf Metzger Other [facility] Other 08-22-2023 16:00-0400 Diastolic blood pressure 78 mm[Hg] Otf Metzger Other [facility] 08-22-2023 16:00-0400 Respiratory rate 18 /min Otf Metzger Other [facility] Other 08-22-2023 16:00-0400 SaO2% (BldA) [Mass fraction] 98 % Otf Metzger Other [facility] 08-22-2023 16:00-0400 Systolic blood pressure 112 mm[Hg] Otf Metzger Other [facility] Other 09-25-2021 10:50-0500 Body height 170.18 cm Otf Metzger Other [facility] Other 09-25-2021 10:50-0500 Body mass index (BMI) [Ratio] 24.59 kg/m2 Otf Metzger Other [facility] 09-25-2021 10:50-0500 Body temperature 97 [degF] Otf Metzger Other [facility] Other 09-25-2021 10:50-0500 Body weight 71.22 kg Otf Metzger Other [facility] Other 09-25-2021 10:50-0500 Diastolic blood pressure 80 mm[Hg] Otf Metzger Other [facility] 09-25-2021 10:50-0500 Respiratory rate 18 /min Otf Metzger Other [facility] Other 09-25-2021 10:50-0500 SaO2% (BldA) [Mass fraction] 97 % Otf Metzger Other [facility] Other 09-25-2021 10:50-0500 Systolic blood pressure 122 mm[Hg] Otf Metzger Other [facility] Other Encounters Encounter Date Encounter Type Care Provider Facility Start: 08-28-2024 ambulatory Randall Wan y:[facility] Start: 03-28-2024 End: 03-28-2024 ambulatory YOHAN WILSON [facility] Start: 03-08-2024 End: 03-08-2024 ambulatory Otf Metzger Facility:[facility] Start: 03-08-2024 End: 03-08-2024 Patient encounter procedure Otf Metzger [facility] Start: 03-05-2024 End: 03-05-2024 ambulatory [facility] Work Phone: Start: 03-05-2024 End: 03-05-2024 Patient encounter procedure [facility] [place] Work Phone: Start: 02-27-2024 Non-patient / Non-visit [facility] Work Phone: Start: 02-24-2024 End: 02-24-2024 ambulatory SELF REFERRAL Facility:[facility] Start: 02-24-2024 End: 02-24-2024 Patient encounter procedure SELF REFERRAL [facility] Start: 01-17-2024 Refill Yohan Wilson MD Work Phone: [facility] Comment on above: Cysts of both ovarie s Start: 12-05-2023 End: 12-05-2023 ambulatory Otf Metzger Other [facility] Other Start: 12-05-2023 Telephone encounter Otf Metzger [facility] [place] Start: 10-19-2023 End: 10-19-2023 ambulatory Prabhakarkaty Johnson Facility:[facility] Start: 10-19-2023 End: 10-19-2023 Patient encounter procedure Vanna Jamesamber Fabianyolandanicolle [facility] Start: 09-29-2023 End: 09-29-2023 ambulatory SILVIO QUIGLEY Not Available Start: 09-13-2023 End: 09-13-2023 ambulatory Otf Metzger Facility:[facility] Start: 09-13-2023 End: 09-13-2023 Patient encounter procedure Renata Strong [facility] Start: 08-22-2023 End: 08-22-2023 ambulatory Otf Metzger Other [facility] Other Start: 08-22-2023 Office outpatient vi sit 25 minutes Otf Metzger [facility] Start: 07-06-2023 End: 07-06-2023 ambulatory Otf Metzger Other [facility] Other Start: 07-06-2023 Telephone encounter Otf Metzger [facility] Start: 05-02-2023 End: 05-02-[address] SILVIO QUIGLEY . Facility: Start: 05-02-2023 Telephone encounter Otf Metzger [facility] Start: 03-04-2023 End: 03-04-[address] SILVIO QUIGLEY . Facility:[facility] Start: 02-28-2023 Encounter for preprocedural cardiovascular examination DR SILVIO QUIGLEY . [facility] Start: 02-22-2023 End: 02-23-[address] SILVIO QUIGLEY . Facility:[facility] Start: 02-22-2023 End: 02-23-2023 Encounter for preprocedural cardiovascular examination DR SILVIO QUIGLEY . Facility:[facility] Start: 02-11-[address] SILVIO QUIGLEY . Facili ty:[facility] Start: 02-08-2023 End: 02-08-[address] SILVIO QUIGLEY . Facility:[facility] Start: 01-27-2023 End: 01-28-[address] SILVIO QUIGLEY . Facility:[facility] Start: 01-24-2023 End: 01-24-2023 ambulatory Otf Metzger Other [facility] Other Start: 01-24-2023 Telephone encounter Otf Metzger [facility] Start: 01-19-2023 End: 01-20-[address] SILVIO QUIGLEY . Facility:[facility] Start: 01-10-2023 End: 01-10-2023 ambulatory Otf Metzger Other [facility] Other Start: 01-10-2023 Telephone encounter Otf Metzger [facility] Start: 11-12-2022 End: 11-12-2022 Patient encounter procedure Otf Metzger [facility] Start: 10-25-2022 End: 10-25-2022 ambulatory Otf Metzger Other [facility] Other Start: 10-25-2022 Telephone encounter Otf Metzger [facility] Start: 07-26-2022 End: 07-26-2022 ambulatory Oft Metzger Other [facility] Other Start: 07-26-2022 Telephone encounter Otf Metzger [facility] Start: 07-20-2022 End: 07-20-2022 Patient encounter procedure Otf Metzger [facility] Start: 03-10-2022 End: 03-10-2022 ambulatory Otf Metzger Other [facility] Other Start: 03-10-2022 Telephone encounter Otf Metzger [facility] Start: 09-25-2021 End: 09-25-2021 ambulatory Otf Metzger Other [facility] Other Start: 09-25-2021 Office outpatient vi sit 15 minutes Otf Metzger [facility] [place] Start: 11-23-2018 End: 11-24-2018 Patient encounter procedure DEFAULT PHYSICIAN Facility:[facility] Start: 10-31-2018 End: 11-01-2018 Patient encounter procedure DEFAULT PHYSICIAN Facility:[facility] Procedures Date Procedure Procedure Detail Performing Clinician Start: 10-19-2023 Colonoscopy Vanna banuelos Bowel dysfunction (disorder) Otf Metzger Comment on above: recestion Colonoscopy Renata Ligia Comment on above: 20 years ago Gallbladder structur e (body structure) Otf Metzger Reduction mammoplasty Otf Metzger Plan of Treatment Date Care Activity Detail Author Start: 10-26-2024 Adult BMI Screening Adult BMI Screening [facility] Start: 10-26-2024 Tobacco Screening Tobacco Screening [facility] Start: 09-03-2024 DTaP,Tdap and Td Vaccines (2 - Td or Tdap) DTaP,Tdap and Td Vaccines (2 - Td or Tdap) [facility] Start: 03-28-2024 End: 03-28-2024 Patient encounter procedure 03/28/2024 9:30 AM EDT Office Visit [facility] [address] [place] [address] [address] [place] [address] Yohan Wilson MD [address] [place] [address], [address] [place] [address] [facility] Start: 07-15-2023 COVID-19 Vaccine ( season) COVID-19 Vaccine ( season) [facility] Start: 1998 Screening for malignant neoplasm of cervix Pap Smear [facility] Start: 1995 Adult BMI Follow Up Plan Adult BMI Follow Up Plan [facility] Start: 1989 Depression Screening Depression Screening [facility] Comprehensive metabo lic 1999 panel - Serum or Plasma [facility] Immunizations Immunization Date Immunization Notes Care Provider Bruce ley 08-29-2023 influenza virus vaccine, unspecified formulation Renata Strong [facility] Comment on above: Reason for Medicatio n: Prophylaxis 09-02-2022 influenza virus vaccine, unspecified formulation Otf Metzger [facility] Comment on above: Reason for Medicatio n: Prophylaxis 09-02-2022 influenza, injectabl e, quadrivalent, preservative free Otf Metzger Other [facility] 11-20-2021 COVID-19 Vaccine Moderna - Documentation Purposes Only Otf Metzger Other [facility] Comment on above: Reason for Medicatio n: Prophylaxis 08-26-2021 influenza virus vaccine, unspecified formulation Otf Metzger [facility] Comment on above: Reason for Medicatio n: Prophylaxis 08-17-2021 influenza, seasonal, injectable Otf Metzger Other [facility] 12-18-2020 COVID-19 Vaccine Moderna - Documentation Purposes Only Otf Metzger Other [facility] 11-20-2020 COVID-19 Vaccine Moderna - Documentation Purposes Only Otf Metzger Other [facility] 09-03-2014 influenza virus vaccine, unspecified formulation Renata Ligia [facility] 09-03-2014 tetanus and diphther ia toxoids, adsorbed, preservative free, for adult use (5 Lf of tetanus toxoid and 2 Lf of diphtheria toxoid) [facility] 09-03-2014 tetanus toxoid, redu carina diphtheria toxoid, and acellular pertussis vaccine, adsorbed Otf Metzger Other [facility] Payers Date Payer Category Payer Private Health Insurance SHIRLEY SALAZAR POS II [id number] 2004-Present [phone] [address] [place] [address] [id number] 1977 Unknown [id number] [id number] .647 1977 Unknown [id number] 2.16.840.1.178964.3.579.2 .647 1977 Unknown [id number] 2.16.840.1.899731.3.579.2 .593 1977 Unknown [id number] 2.16.840.1.069511.3.579.2 .593 1977 Unknown [id number] 2.16.840.1.523606.3.579.2 .593 1977 Unknown [id number] 2.16.840.1.589462.3.579.2 .593 1977 Unknown [id number] 2.16.840.1.437114.3.579.2 .593 1977 Unknown [id number] 2.16.840.1.438563.3.579.2 .593 1977 Unknown [id number] 2.16.840.1.591761.3.579.2 .593 1977 Unknown [id number] 2.16.840.1.786419.3.579.2 .1259 1977 Unknown [id number] 2.16.840.1.011527.3.579.2 .1286 1977 Unknown [id number] 2.16.840.1.077290.3.579.2 .727 1977 Unknown [id number] 2.16.840.1.625116.3.579.2 .727 1977 Unknown [id number] 2.16.840.1.499332.3.579.2 .727 1977 Unknown [id number] 2.16.840.1.446126.3.579.2 .727 1977 Unknown [id number] 2.16.840.1.032464.3.579.2 .727 1959 Private Health Insurance [id number] 1957 Self-pay [id number] Private Health Insurance [id number] Self-pay Self Pay [id number] Unknown Unknown [employer] [place] [id number] Social History Date Type Detail Facility Unknown if ever smoked [facility] Other Start: 04-23-2019 End: 10-26-2023 Sex Assigned At [facility] [employer] Other Start: 11-24-2019 End: 09-13-2023 Tobacco smoking status Never smoked tobacco (finding) [facility] Tobacco smoking status Never [facility] Start: 10-26-2023 Tobacco use and exposure Smokeless tobacco non-user [facility] Start: 10-26-2023 Alcohol intake Ex-drinker (finding) [facility] Start: 04-23-2019 End: 10-26-2023 History of [address] function [facility] Start: 1977 Sex Assigned At Not on file P [facility] Start: 1975 Sex Assigned At Female F [facility] Functional Status Date Assessment Result Facility 10-19-2023 Functional Status N/A [facility] 09-13-2023 Functional Status N/A [facility] Clinical Notes 06-22-2018 to 12-05-2023 Note Date & Type Note Facility 12-05-2023 Evaluation note Encounter Date Diagnosis Assessment Notes Nov, Iron deficiency anemia (ICD-10 - D50.9) [facility] Other 12-07-2023 Note [id number] 10-19-2023 Hospital Discharge instructions Patient Education 10/19/2023 11:53:28 [facility] NSAIDS-Nonsteroidal Anti-Inflammatory Medications (CUSTOM) AvoidNonsteroidal Anti-Inflammatory Medications [...] pain neck pain Some NSAIDs are available tmnn-zjg-xpjefqy, without the need for a prescription. However, [...] [facility] Your doctor may also give you [...] Care 09/13/2023 09:19:49 With:Elizabeth CHUA, [place] Fernandez, [facility] Address: [address] [place] [address], [address] [phone] [phone] When: Unknown Comments:Office Will Call Date and Time of Follow-up Appt. [facility]10-31-2023 Evaluation + Plan note Future Scheduled Tests Laboratory* Fecal WBC Lactoferrin 09/13/23 * Giardia lamblia, Direct Detection EIA 09/13/23 * O & P Exam, Routine 09/13/23 * Clostridium Difficile PCR 09/13/23 * Enteric Panel by PCR 09/13/23 * CBC w/ Auto Diff 09/13/23 * Comprehensive Metabolic Panel 09/13/23 * Thyroid Stimulating Hormone 09/13/23 [facility]10-31-2023 Hospital Discharge instructions Patient Education 09/13/2023 08:50:01 [...] including vitamins, herbs, eye drops, creams, and prqu-pzc-abaawjx medicines. Any problems you or family members [...] provider tells you to take them. Taking laeq-yyn-ssggyir medicines, vitamins, herbs, and supplements. General instructions [...] provider. Document Revised: 10/25/2022 Document Reviewed: 06/23/2022 [employer] Patient Education 2022 [employer]. Follow Up Care 08/26/2023 11:00:38 With:Renata Strong CNP Address: When:1 to 2 weeks Comments:Following Colonoscopy. [facility] 10-31-2023 NoteRadiology Colonoscopy, Adult A [...] including vitamins, herbs, eye drops, creams, and gqjh-ane-susorpx medicines. ? Any problems you or family [...] tells you to take them. ? Taking mmlc-wrv-pokvdfo medicines, vitamins, herbs, and supplements. General instructions [...] checked for cancer cells. (more content not included)...[facility]10-09-2023 Evaluation note* Encounter Date Diagnosis Assessment Notes [...] has lost one pound since last seen. [facility] Other 06-19-2023 Evaluation note* Encounter Date Diagnosis Assessment Notes Treatment Notes Treatment Clinical Notes Apr, Spastic colon (ICD-10 - K58.9) [facility] Other 04-21-2023 NoteOPERATIVE NOTE OPERATION DATE: 03/04/2023 PROCEDURE: Ama endometrial ablation with hysteroscopy. PREOPERATIVE DIAGNOSIS: Menorrhagia. POSTOPERATIVE DIAGNOSIS: Menorrhagia. ANESTHESIA: General. SURGEON: Silvio Quigley D.O. DIRECTOR LIFE INSURANCE: None. BLOOD LOSS: 5 mL. URINE OUTPUT: [...] Patient taken to recovery in stable condition.[id number] Evaluation note* Encounter Date Diagnosis Assessment Notes Treatment Notes Treatment Clinical Notes Jan, Spastic colon (ICD-10 - K58.9) [facility] Other 02-27-2023 Evaluation note* Encounter Date Diagnosis Assessment Notes Treatment Notes Treatment Clinical Notes Dec, Iron deficiency anemia (ICD-10 - D50.9) [facility] Other 12-12-2022 Evaluation note* Encounter Date Diagnosis [...] her overactive thyroid and was seeing an transfer table operator helper in [place] for this in the past but has [...] I thought she was following with an transfer table operator helper. She denies palpitations, weight loss, losing weight [...] off she should return to see the transfer table operator helper. Call for results. Oct, Spastic colon (ICD-1 [...] Oct, Other 4:47 PM - 4:58 PM [facility] Other 09-12-2022 Evaluation note* Encounter Date Diagnosis [...] with above medication as needed. Jul, Other mcfp (current) drug therapy (ICD-10 - Z79.899) Jul, Other 5:07 PM - 5:12 PM [facility] Other 09-06-2022 Evaluation + Plan note Diagnostic Tests Pending * [facility] 07/20/22 [facility]11-12-2021 Evaluation note* Encounter Date Diagnosis Assessment Notes [...] (ICD-10 - E05.90) She voices that an transfer table operator helper placed her on this. She ended up seeing a [place] doctor and had an echocardiogram done and [...] does not have any of this medication. [facility] Other 08-09-2018 History general Narrative - Reported* [...] Hospitalization History [facility] - [facility] Other 08-09-2018 History general Narrative - Reported* [...] Hospitalization History [facility] - heart racing [facility] Other Evaluation + Plan note Future Appointments Appointment Date:10/19/2023 11:00:00 AM Scheduled Provider: Location:[facility] Appointment Type:Surgery [facility] Future Scheduled Tests Laboratory* Fecal WBC Lactoferrin 09/13/23 * Giardia lamblia, Direct Detection EIA 09/13/23 * O & P Exam, Routine 09/13/23 * Clostridium Difficile PCR 09/13/23 * Enteric Panel by PCR 09/13/23 * CBC w/ Auto Diff 09/13/23 * Comprehensive Metabolic Panel 09/13/23 * Thyroid Stimulating Hormone 09/13/23 [facility] Evaluation noteNo InformationNoell[facility] [employer] Other Evaluation note* Diagnosis Cysts of both ovaries Other and unspecified ovarian cyst documented in this encounter [facility]* Diagnosis Onset Date Resolution Status Abnormal mammogram acute Hyperglycemia acute Hyperthyroidism acute Iron deficiency anemia acute Spastic colon acute Spider bite acute [facility] Work Phone: Hospital course Narrative No data available for this section [facility] No data available for this section [facility] CenterInstructionsNot on filedocumented in this encounter [facility] SystemProgress note No data available for this section [facility] Summary Purpose Family History No Family History Records Found Relationship Condition Age at Onset Recorded Date/T ashley grandparent Unknown Advance Directives No Advanced Directives Records Found Advance Directive Response Recorded Date/ Time Advance Directives No June 27, 2018 7:15am Reason for Referral Reason appt pt needs cons ult with Dr. Johnson for a colonoscopy Diagnosis 1 Spastic colon (K58.9 ) Referral Organization [facility] Family Nam Robert Referring Provider First Name Otf Referring Provider Last Name Jamilah Referring Provider Specialty Family Prac nate Referred Organization [facility] Referred Provider Vanna Johnson Referred Address [address],[place], [place],[address] Referred Provider Specialty Gastroentero logy Referral Priority Routine General Notes AmiDeyah 08/22/2023 04:22:21 PM > referral faxed to [facility] with visit note and insurance card. pt understands she will be contacted to schedule this appt. Chief Complaint and Reason for Visit Chief Complaint review labs Reason for Visit Abnormal mammogram Hyperglycemia Hyperthyroidism Iron deficiency anemia Spastic colon Spider bite Additional Source Comments INFORMATION SOURCE (unrecogn ized section and content) DATE CREATED AUTHOR 11/23/2018 [facility] DATE CREATED AUTHOR AUTHOR'S ORGANIZ ATION 03/11/2023 [facility] DATE CREATED AUTHOR AUTHOR'S ORGANIZ ATION 10/01/2023 [facility] EPIC DATE CREATED AUTHOR AUTHOR'S ORGANIZ ATION 03/30/2024 [facility] DATE CREATED AUTHOR AUTHOR'S ORGANIZ ATION 08/31/2024 [facility] REASON FOR VISIT (unrecogniz ed section and content) Reason Comments Med Refill Care Team (unrecognized sect ion and content) Product Ambassador Relationship Specialty Start Date End Date Otf Metzger DO [address] [place] [address] [place] [address] PCP - General Family Medicine 10/26/23 Team Status: Active Member Role Status Dates Otf Metzger DO Primary Care Provider Active Team Status: Active Member Role Status Dates Otf Metzger DO Primary Care Provide r, Attending Provider Active Start: February 27, 2024 Team Status: Inactive Member Role Status Dates Otf Metzger DO Primary Care Provide r, Attending Provider [...] BE BASED ON THE PRIMARY CLINICAL RECORDS. [facility] [employer] [facility]. provides no warranty or guarantee of the accuracy or completeness of information in this document.
== END 2024-09-27 07:54 | disposition home or self-care (01) ==
LOC: US 07:53
PROVIDERS: PCP Family Medicine
DX: N83.201 Unspecified ovarian cyst, right side (principal); N83.202 Unspecified ovarian cyst, left side
CPT/HCPCS: 76830; 76856

== ENCOUNTER 2025-05-09 20:13 | Outpatient (OUT) | payer OTHER, SELFPAY ==
--- OUTSIDE RECORDS SUMMARY | 2025-05-09 20:17 | XMS_ITS | CCD ---
Author Organization [facility] Care Team Providers Care Apiculturist Name Role Phone PHYSICIAN, DEFAULT Unavailable Unavailable PHYSICIAN, DEFAULT Unavailable Unavailable PHYSICIAN, DEFAULT Unavailable Unavailable PHYSICIAN, DEFAULT Unavailable Unavailable Otf Metzger Unavailable Otf Metzger Primary Care Physician KAYLI ., DR ANGUIANO Admitting Unavailable KAYLI ., DR ANGUIANO Attending Unavailable KAHOKA, DR OTF Haro Consulting Unavailable KAYLI ., DR ANGUIANO Consulting Unavailable KAYLI ., DR ANGUIANO Admitting Unavailable KAYLI ., DR ANGUIANO Attending Unavailable KAYLI ., DR ANGUIANO Consulting Unavailable KAYLI ., DR ANGUIANO Admitting Unavailable KAYLI ., DR ANGUIANO Attending Unavailable KAYLI ., DR ANGUIANO Consulting Unavailable JL II, ADRIEL Consulting Unavailable FILZAKI MONTERROSOSSICA Consulting Unavailable KAYLI ., DR ANGUIANO Admitting [...] Unavailable KAYLI ., DR ANGUIANO Consulting Unavailable KAYLISILVIO Attending Unavailable YOHAN WILSON Attending Unavailable OTF METZGER Referring Unavailable OTF METZGER Primary Care Unavailable Otf Metzger DO Primary Care Provider Otf Metzger Admitting Unavailable Otf Metzger Referring Unavailable Otf Metzger Attending Unavailable REFERRAL, SELF Referring Unavailable REFERRAL, SELF Attending Unavailable REFERRAL, SELF Admitting Unavailable Otf Metzger Consulting Unavailable DO Oft Metzger Consulting Unavailable Randall WILDER Attending Unavailable Meche PINK Attending Unavailable OTF METZGER Referring Unavailable OTF METZGER Primary Care Unavailable OTF METZGER Referring Unavailable OTF METZGER Primary Care Unavailable Otf Metzger DO Primary Care Provider [phone] Medications Current Medications Medication Drug Class(es) Dates Sig (Normalized) Sig (Original) amoxicillin 875 mg / clavulanate 125 mg oral tablet (1 source) Penicillin-class Antibacterial Start: 03-05-2024 take 1 tablet by mouth twice daily at mealtime Amoxicillin-Pot Clavulanate Active 1 TAB PO Twice daily 02 09March 05, 2024 12:00am with food diazePAM 5 mg oral tablet (19 sources) Benzodiazepine Start: 09-15-2016 diazePAM (VALIUM) 5 mg tablet 30 tab(s), 0 Refill(s), Refills(s) 0 06/08/2023 Active Ethinyl Estradiol / Levonorgestrel (8 sources) Progestin, Estrogen, Progestin-containing Intrauterine Device Start: [...] morning. 91 each 0 10/26/2023 01/17/2024 Discontinued Start: 10-26-2023 take 1 tablet by diann th every month in the morning L norgest/e.estradioL-e.estrad (AMETHIA) 0.15 mg-30 mcg (84)/10 mcg (7) tablets,dose pack,3 month Indications: Cysts of both ovaries Take 1 tablet by mouth in the morning. 91 each 0 10/26/2023 Active ferrous sulfate 325 mg oral tablet (20 sources) Start: 03-05-2024 Ferrous Sulfat e Active [...] 1 tablet (325 mg total) by mouth. Active take 1 tablet by diann th [...] OTH PART DIGESTV TRACT] Onset: 03-09-2023 Episodic Residual codes; unclassified (1 source) Pain, unspecified; Translations: [Pain, unspecified] Onset: 12-16-2024 Episodic Thyroid disorders (20 sources) Hyperthyroidism; Translations: [Thyrotoxicosis, unspecified without thyrotoxic crisis or storm] Onset: 09-25-2021 Resolved: 09-25-2021 Chronic Unclassified (4 sources) Patient encounter status 09-13-2023 Unclassified (1 source) Transformed migraine; Translations: [Chronic migraine] 03-05-2024 Past or Other Problems Problem Classification Problem Date Documented Da te Episodic/Chronic Other aftercare (1 source) Other supervisor long goods (current) drug therapy Onset: 07-26-2022 Resolved: 07-26-2022 Episodic Ovarian cyst (19 sources) Unspecified ovarian cyst, right side; Translations: [Unspecified ovarian cyst, left side] Onset: 01-22-2023 Episodic Unclassified (6 sources) Entire gallbladder (body structure) 11-10-2015 Results Test Name Value Interpretation Reference Range Facility Consent for Treatmenton 02-13 Consent for Treatment [id number] Normal [facility] US Breast Unilateral Rt Comp leteon [...] IS VERY IMPORTANT TO YOUR HEALTH. THE [employer] GUIDELINES RECOMMEND THAT WOMEN 40 [...] REPORT Dictated: 03/08/2024 1:10 pm Duong Sanches MD Signed (Electronic Signature): 03/08/2024 1:10 pm Signed by: Duong Sanches MD Transcribed by: JANIS Technologist: LANDEN Assessment: BI-RADS Category 2-Benign finding Recommendation: Normal interval follow-up Normal [facility] Physician Orderon 03-02-2024 Physician Order [id number] Normal [facility] Laboratory - Hematology and Cell countson 02-27-2024 HbA1c (Bld) [Mass fraction] 5.5 % [facility] [place] Mamm Screen w/CAD if perf and [...] VERY IMPORTANT TO YOUR HEALTH. THE CURRENT [employer] [...] Signed by: Jeff Heard MD Transcribed by: DP Technologist: [facility] Assessment: BI-RADS Category 0-Incomplete: Need additional imaging evaluation Recommendation: Additional projections Normal [facility] Consent for Treatmenton 02-12 Consent for Treatment [id number] Normal [facility] CBC AUTO DIFFon 03-04-2023 BASO # 0.0 103/ul Normal 0.0-0.1 [facility] Comment on above: Performed By: #### CBC #### [facility] [address] [address] [address] Easton Rubi Basophils/100 WBC (Bld) 0.8 % Normal 0.2-2.0 [facility] Comment on above: Performed By: #### CBC #### [facility] [address] [place] [address] Dr. Easton Rubi EO # 0.1 103/ul Normal 0.0-0.7 [facility] Comment on above: Performed By: #### CBC #### [facility] [address] [address] [address] Easton Rubi Eosinophils/100 WBC (Bld) 2.4 % Normal 0.9-7.0 [facility] Comment on above: Performed By: #### CBC #### [facility] [address] [place] [address] Dr. Easton Rubi Erythrocyte distribution width (RBC) [Ratio] 12.5 % Normal 11.0-15.0 [facility] Comment on above: Performed By: #### CBC #### [facility] [address] [address] [address] Easton Rubi Hematocrit (Bld) [Volume fraction] 39.4 % Normal 36.0-48.0 [facility] Comment on above: Performed By: #### CBC #### [facility] [address] [address] [address] Easton Rubi Hemoglobin (Bld) [Mass/Vol] 13.2 g/dL Normal 12.0-16.0 [facility] Comment on above: Performed By: #### CBC #### [facility] [address] [place] [address] Dr. Easton Rubi IG # 0.01 10e3/ul Normal 0.00-0.03 [facility] Comment on above: Performed By: #### CBC #### [facility] [address] [place] [address] Dr. Easton Rubi IG % 0.2 % Normal 0.0-0.5 [facility] Comment on above: Performed By: #### CBC #### [facility] [address] [place] [address] Dr. Easton Rubi LYMPH # 1.9 103/ul Normal 1.2-3.8 [facility] Comment on above: Performed By: #### CBC #### [facility] [address] [place] [address] Dr. Easton Rubi Lymphocytes/100 WBC (Bld) 36.9 % Normal 20.5-60.0 [facility] Comment on above: Performed By: #### CBC #### [facility] [address] [place] [address] Dr. Easton Rubi MANUAL DIFF REQ NO Normal [facility] Comment on above: Performed By: #### CBC #### [facility] [address] [place] [address] Dr. Easton Rubi MCH (RBC) [Entitic mass] 28.3 pg Normal 26.7-34.0 [facility] Comment on above: Performed By: #### CBC #### [facility] [address] [place] [address] Dr. Easton Rubi MCHC (RBC) [Mass/Vol] 33.5 g/dL Normal 29.9-35.2 [facility] Comment on above: Performed By: #### CBC #### [facility] [address] [place] [address] Dr. Easton Rubi MCV (RBC) [Entitic vol] 84.5 fL Normal 81.0-99.0 [facility] Comment on above: Performed By: #### CBC #### [facility] [address] [place] [address] Dr. Easton Rubi MONO # 0.4 103/ul Normal 0.3-0.8 [facility] Comment on above: Performed By: #### CBC #### [facility] [address] [address] [address] Easton Rubi Monocytes/100 WBC (Bld) 8.3 % Normal 1.7-12.0 [facility] Comment on above: Performed By: #### CBC #### [facility] [address] [place] [address] Dr. Easton Rubi NEUT # 2.6 103/ul Normal 1.4-6.5 [facility] Comment on above: Performed By: #### CBC #### [facility] [address] [place] [address] Dr. Easton Rubi Neutrophils/100 WBC (Bld) 51.4 % Normal 43.0-75.0 [facility] Comment on above: Performed By: #### CBC #### [facility] [address] [place] [address] Dr. Easton Rubi Platelet mean volume (Bld) [Entitic vol] 11.0 fL Normal 9.5-13.5 [facility] Comment on above: Performed By: #### CBC #### [facility] [address] [place] [address] Dr. Easton Rubi PLT 294 103/ul Normal 150-450 [facility] Comment on above: Performed By: #### CBC #### [facility] [address] [place] [address] Dr. Easton Rubi RBC 4.66 106/ul Normal 4.20-5.40 [facility] Comment on above: Performed By: #### CBC #### [facility] [address] [place] [address] Dr. Easton Rubi WBC 5.0 103/ul Normal 4.0-11.0 [facility] Comment on above: Performed By: #### CBC #### [facility] [address] [place] [address] Dr. Easton Rubi PREG QUANT HCGon 03-04-2023 HCG QUANT <1 Normal [facility] Comment on above: Performed By: #### PREGQNT #### [facility] [address] [place] [address] Dr. Easton Rubi HCG RANGE SEE BELOW [facility] Comment on above: Result Comment: 5-50 0.2-1 WEEK 50-500 1 -2 WEEKS 100-5,000 2-3 WEEKS 500-10,000 3-4 WEEKS 1,000-50,000 4-5 WEEKS 10,000-100,000 5-6 WEEKS 15,000-200,000 6-8 WEEKS 10,000-100,000 2-3 MONTHS Performed By: #### P REGQNT #### [facility] [address] [place] [address] Dr. Easton Rubi PAP ACOG PANEL 2: 30 to 65on 02-15-2023 . . Normal [facility] Comment on above: Result Comment: Performed at: WB Performed By: #### [id number] #### [facility] [address] [place] [address] Dr. Easton Rubi Age Gdln ACOG Testing 30-65 [facility] Comment on above: Performed By: #### [id number] #### [facility] [address] [place] [address] Dr. Easton Rubi DIAGNOSIS: Comment Normal [facility] Comment on above: Result Comment: NEGATIVE FOR INTRAEPITHE LIAL LESION OR MALIGNANCY. Performed at: WB Performed By: #### [id number] #### [facility] [address] [place] [address] Dr. Easton Rubi HPV Aptima Negative Normal Negative [facility] Comment on above: Result Comment: This nucleic acid amplif ication test detects fourteen high-risk HPV types (16,18,31,33,35,39,45,51,52,56,58,59,66,68) without differentiation. Performed at: =G Performed By: #### [id number] #### [facility] [address] [place] [address] Dr. Easton Rubi HPV Genotype Reflex Comment Normal [facility] Comment on above: Result Comment: Criteria not met, HPV Ge notype not performed. Performed at: WB Performed By: #### [id number] #### [facility] [address] [place] [address] Dr. Easton Rubi Methodology: Comment Normal [facility] Comment on above: Result Comment: This liquid based ThinPr ep(R) pap test was screened with the use of an image guided system. Performed at: WB Performed By: #### [id number] #### [facility] [address] [place] [address] Dr. Easton Rubi Note: Comment Normal [facility] Comment on above: Result Comment: The Pap smear is a scree gómez test designed to aid in the detection of premalignant and malignant conditions of the uterine cervix. It is not a diagnostic procedure and should not be used as the sole means of detecting cervical cancer. Both false-positive and false-negative reports do occur. . Performed at: WB Performed By: #### [id number] #### [facility] [address] [place] [address] Dr. Easton Rubi Performed by: Comment Normal [facility] Comment on above: Result Comment: Rashida Franc[employer] nologist (ASCP) Performed at: WB Performed By: #### [id number] #### [facility] [address] [place] [address] Dr. Easton Rubi Specimen adequacy: Comment Normal [facility] Comment on above: Result Comment: Satisfactory for evaluat ion. Endocervical and/or squamous metaplastic cells (endocervical component) are present. Performed at: WB Performed By: #### [id number] #### [facility] [address] [place] [address] Dr. Easton Rubi AFP (TUMOR MARKER)on 023 AFP, Serum, Tumor Marker <1.8 Normal 0.0-6.4 [facility] Comment on above: Result Comment: [employer] Electr ochemiluminescence Immunoassay (ECLIA) . Values obtained with different assay methods or kits cannot be used interchangeably. Results cannot be interpreted as absolute evidence of the presence or absence of malignant disease. . This test is not interpretable in females. Performed By: #### A FP. #### [facility] [address] [place] [address] Dr. Easton Rubi CA 125on 01-29-2023 Cancer Antigen (CA) 125 13.6 U/mL Normal 0.0-38.1 [facility] Comment on above: Result Comment: [employer] Electr ochemiluminescence Immunoassay (ECLIA) . Values obtained with different assay methods or kits cannot be used interchangeably. Results cannot be interpreted as absolute evidence of the presence or absence of malignant disease. Performed By: #### C A 125 #### [facility] [address] [place] [address] Dr. Easton Rubi CEAon 01-29-2023 CEA 2.3 ng/mL Normal 0.0-4.7 [facility] Comment on above: Result Comment: Nonsmokers <3.9 Smokers <5.6 . [employer] Electrochemiluminescence Immunoassay (ECLIA) . Values obtained with different assay methods or kits cannot be used interchangeably. Results cannot be interpreted as absolute evidence of the presence or absence of malignant disease. Performed By: #### C EA. #### [facility] [address] [place] [address] Dr. Easton Rubi HCG QUANT TUMOR MARKERon HCG QNT TUMOR MARKER <1 Normal [facility] Comment on above: Result Comment: Female (Non-) 0 - 5 (Postmenopausal) 0 - [...] developed and its performance characteristics determined by [employer]. It has not been cleared or approved by the Food and Drug Administration for use as a tumor marker. . This test is not interpretable as a tumor marker in females. Performed By: #### H CGTMOR #### [facility] [address] [place] [address] Dr. Easton Rubi LDHon 01-27-2023 LDH 130 U/L Normal 81-234 [facility] Comment on above: Performed By: #### LDH #### [facility] [address] [place] [address] Dr. Easton Rubi US PELVIS AND TRANSVAGon [...] by: OTF KUMAR Date: 2023-01-20 06:51 Normal [facility] Vital Signs Date Time Vital Sign Value Performing Clinician Facility 03-28-2024 09:22-0400 Body temperature 98.1 [degF] Yohan Wilson MD Work Phone: [facility] 03-28-2024 09:22-0400 Diastolic blood pressure 90 mm[Hg] Yohan Wilson MD Work Phone: [facility] 03-28-2024 09:22-0400 Heart rate 78 /min Yohan Wilson MD Work Phone: [facility] 03-28-2024 09:22-0400 SaO2% (BldA) [Mass fraction] 98 % Yohan Wilson MD Work Phone: [facility] 03-28-2024 09:22-0400 Systolic blood pressure 136 mm[Hg] Yohan Wilson MD Work Phone: [facility] 03-28-2024 09:21-0400 Body height 170.2 cm Yohan Wilson MD Work Phone: [facility] 03-28-2024 09:21-0400 Body mass index (BMI) [Ratio] 25.05 kg/m2 Yohan Wilson MD Work Phone: [facility] 03-28-2024 09:21-0400 Body weight 72.58 kg Yohan Wilson MD Work Phone: [facility] 03-05-2024 15:43-0400 Body height 170.18 cm [facility] 03-05-2024 15:43-0400 Body mass index (BMI) [Ratio] 25.5 kg/m2 [facility] 03-05-2024 15:43-0400 Body temperature 98.1 [degF] [facility] 03-05-2024 15:43-0400 Body weight 73.93 kg [facility] 03-05-2024 15:43-0400 Diastolic blood pressure 72 mm[Hg] [facility] 03-05-2024 15:43-0400 Heart rate 74 /min [facility] 03-05-2024 15:43-0400 SaO2% (BldA) [Mass fraction] 98 % [facility] 03-05-2024 15:43-0400 Systolic blood pressure 116 mm[Hg] [facility] 10-19-2023 12:10-0500 Heart rate 80 /min Prabhakar Sarmini [facility] 10-19-2023 12:10-0500 Respiratory rate 10 /min Prabhakar Sarmini [facility] 10-19-2023 12:05-0500 Diastolic blood pressure 75 mm[Hg] Prabhakar Sarmini [facility] 10-19-2023 12:05-0500 Heart rate 89 /min Prabhakar Sarmini [facility] 10-19-2023 12:05-0500 Mean blood pressure 90 mm[Hg] Prabhakar Sarmini [facility] 10-19-2023 12:05-0500 Respiratory rate 17 /min Prabhakar Sarmini [facility] 10-19-2023 12:05-0500 SaO2% (BldA) [Mass fraction] 100 % Prabhakar Sarmini [facility] 10-19-2023 12:05-0500 Systolic blood pressure 120 mm[Hg] Prabhakar Sarmini [facility] 10-19-2023 12:00-0500 Diastolic blood pressure 79 mm[Hg] Prabhakar Sarmini [facility] 10-19-2023 12:00-0500 Heart rate 81 /min Prabahkar Sarmini [facility] 10-19-2023 12:00-0500 Mean blood pressure 89 mm[Hg] Prabhakar Sarmini [facility] 10-19-2023 12:00-0500 Respiratory rate 20 /min Prabhakar Sarmini [facility] 10-19-2023 12:00-0500 Systolic blood pressure 108 mm[Hg] Prabhakar Sarmini [facility] 10-19-2023 11:55-0500 Diastolic blood pressure 82 mm[Hg] Prabhakar Sarmini [facility] 10-19-2023 11:55-0500 Mean blood pressure 90 mm[Hg] Prabhakar Sarmini [facility] 10-19-2023 11:55-0500 SaO2% (BldA) [Mass fraction] 100 % Prabhakar Sarmini [facility] 10-19-2023 11:55-0500 Systolic blood pressure 107 mm[Hg] Prabhakar Sarmini [facility] 10-19-2023 11:47-0500 Blood Pressure Location Prabhakar Sarmini [facility] 10-19-2023 11:47-0500 Body temperature 97.34 [degF] Prabhakar Sarmini [facility] 10-19-2023 11:39-0500 Respiratory rate 15 /min Prabhakar Sarmini [facility] 10-19-2023 11:35-0500 Respiratory rate 15 /min Prabhakar Sarmini [facility] 10-19-2023 11:30-0500 Respiratory rate 15 /min Prabhakar Sarmini [facility] 10-19-2023 10:10-0500 Blood Pressure Location Prabhakar Sarmini [facility] 10-19-2023 10:07-0500 Blood Pressure Location Prabhakar Sarmini [facility] 10-19-2023 10:07-0500 Body temperature 97.52 [degF] Prabhakar Sarmini [facility] 09-13-2023 08:35-0400 Blood Pressure Location Renata Ligia [facility] 09-13-2023 08:35-0400 Body temperature 97.52 [degF] Renata Holleymetz [facility] 09-13-2023 08:35-0400 Diastolic blood pressure 86 mm[Hg] Renata Strong [facility] 09-13-2023 08:35-0400 Heart rate 106 /min Renata Strong [facility] 09-13-2023 08:35-0400 Systolic blood pressure 122 mm[Hg] Renata Strong [facility] 08-22-2023 16:00-0400 Body height 170.18 cm Otf Metzger Other [facility] Other 08-22-2023 16:00-0400 Body mass index (BMI) [Ratio] 24.43 kg/m2 Otf Metzger Other [facility] Other 08-22-2023 16:00-0400 Body temperature 98.8 [degF] Otf Metzger Other [facility] Other 08-22-2023 16:00-0400 Body weight 70.76 kg Otf Metzger Other [facility] Other 08-22-2023 16:00-0400 Diastolic blood pressure 78 mm[Hg] Otf Metzger Other [facility] Other 08-22-2023 16:00-0400 Respiratory rate 18 /min Otf Metzger Other [facility] Other 08-22-2023 16:00-0400 SaO2% (BldA) [Mass fraction] 98 % Otf Metzger Other [facility] Other 08-22-2023 16:00-0400 Systolic blood pressure 112 mm[Hg] Otf Metzger Other [facility] Other 09-25-2021 10:50-0500 Body height 170.18 cm Otf Metzger Other [facility] Other 09-25-2021 10:50-0500 Body mass index (BMI) [Ratio] 24.59 kg/m2 Otf Radhaadrian Other [facility] Other 09-25-2021 10:50-0500 Body temperature 97 [degF] Otf Metzger Other [facility] Other 09-25-2021 10:50-0500 Body weight 71.22 kg Otf Metzger Other [facility] Other 09-25-2021 10:50-0500 Diastolic blood pressure 80 mm[Hg] Otf Metzger Other [facility] Other 09-25-2021 10:50-0500 Respiratory rate 18 /min Otf Radhaadrian Other [facility] Other 09-25-2021 10:50-0500 SaO2% (BldA) [Mass fraction] 97 % Otf Garciaadrian Other [facility] Other 09-25-2021 10:50-0500 Systolic blood pressure 122 mm[Hg] Otf Metzger Other [facility] Other Encounters Encounter Date Encounter Type Care Provider Facility Start: 04-11-2025 End: 04-11-2025 Telephone encounter Carrie Flores RN [facility]necology Oncology, A Department of [facility] Start: 12-16-2024 ambulatory OTF METZGER [facility] Start: 12-14-2024 End: 12-17-2024 Orders Only [facility], A Department of [facility] Comment on above: Cysts of both ovarie s (Primary Dx) Start: 12-04-2024 End: 12-04-2024 ambulatory Meche PINK Facility:[facility] Start: 08-28-2024 End: 11-26-2024 ambulatory Randall WILDER Facility:[facility] Start: 03-28-2024 End: 03-28-2024 ambulatory YOHAN WILSON [facility] Start: 03-28-2024 End: 03-28-2024 Office outpatient visit 40 minutes Yohan Wilson MD Work Phone: [facility] Comment on above: Cysts of both ovarie s (Primary Dx) Start: 03-15-2024 End: 03-15-2024 Telephone encounter [facility] Start: 03-08-2024 End: 03-08-2024 ambulatory Otf Metzger Facility:[facility] Start: 03-08-2024 End: 03-08-2024 Patient encounter procedure Otf Metzger [facility] Start: 03-05-2024 End: 03-05-2024 ambulatory [facility] Work Phone: Start: 03-05-2024 End: 03-05-2024 Patient encounter procedure [facility] [place] Work Phone: Start: 02-27-2024 Non-patient / Non-visit [facility] Medicine [place] Work Phone: Start: 02-24-2024 End: 02-24-2024 ambulatory SELF REFERRAL Facility:[facility] Start: 02-24-2024 End: 02-24-2024 Patient encounter procedure SELF REFERRAL [facility] Start: 01-17-2024 Refill Yohan Wilson MD Work Phone: [facility] Comment on above: Cysts of both ovarie s Start: 12-07-2023 Telephone encounter [facility] Start: 12-05-2023 End: 12-05-2023 ambulatory Otf Metzger Other [employer] Other Start: 12-05-2023 Telephone encounter Otf Metzger [facility] Start: 10-19-2023 End: 10-19-2023 Patient encounter procedure Vanna Jonhson [facility] Start: 09-29-2023 End: 09-29-2023 ambulatory SILVIO QUIGLEY Not Available Start: 09-13-2023 End: 09-13-2023 Patient encounter procedure Renata Strong [facility] Start: 08-22-2023 End: 08-22-2023 ambulatory Otf Metzger Other [employer] Other Start: 08-22-2023 Office outpatient vi sit 25 minutes Otf Metzger [facility] Start: 07-06-2023 End: 07-06-2023 ambulatory Otf Metzger Other [employer] Other Start: 07-06-2023 Telephone encounter Otf Metzger [facility] Start: 05-02-2023 End: 05-02-[address] SILVIO QUIGLEY . Facility:[facility] Start: 05-02-2023 Telephone encounter Otf Metzger [facility] Start: 03-04-2023 End: 03-04-[address] SILVIO QUIGLEY . Facility:[facility] Start: 02-28-2023 Encounter for preprocedural cardiovascular examination DR SILVIO QUIGLEY . [facility] Start: 02-22-2023 End: 02-23-[address] SILVIO QUIGLEY . Facility:[facility] Start: 02-22-2023 End: 02-23-2023 Encounter for preprocedural cardiovascular examination DR SILVIO QUIGLEY . Facility:[facility] Start: 02-11-[address] SILVIO QUIGLEY . Facili ty:[facility] Start: 02-08-2023 End: 02-08-[address] SILVIO QUIGLEY . Facility:[facility] Start: 01-27-2023 End: 01-28-[address] SILVIO QUIGLEY . Facility:[facility] Start: 01-24-2023 End: 01-24-2023 ambulatory Otf Metzger Other [employer] Other Start: 01-24-2023 Telephone encounter Otf Metzger [facility] [place] Start: 01-19-2023 End: 01-20-[address] SILVIO QUIGLEY . Facility:[facility] Start: 01-10-2023 End: 01-10-2023 ambulatory Otf Metzger Other [employer] Other Start: 01-10-2023 Telephone encounter Otf Metzger [facility] [place] Start: 11-12-2022 End: 11-12-2022 Patient encounter procedure Otf Metzger [facility] Start: 10-25-2022 End: 10-25-2022 ambulatory Otf Metzger Other [employer] Other Start: 10-25-2022 Telephone encounter Otf Metzger [facility] [place] Start: 07-26-2022 End: 07-26-2022 ambulatory Otf Metzger Other [employer] Other Start: 07-26-2022 Telephone encounter Otf Metzger [facility] [place] Start: 07-20-2022 End: 07-20-2022 Patient encounter procedure Otf Metzger [facility] Start: 03-10-2022 End: 03-10-2022 ambulatory Otf Metzger Other [employer] Other Start: 03-10-2022 Telephone encounter Otf Metzger [facility] [place] Start: 09-25-2021 End: 09-25-2021 ambulatory Otf Metzger Other [employer] Other Start: 09-25-2021 Office outpatient vi sit 15 minutes Otf Metzger [facility] [place] Start: 11-23-2018 End: 11-24-2018 Patient encounter procedure DEFAULT PHYSICIAN Facility:[facility] Start: 10-31-2018 End: 11-01-2018 Patient encounter procedure DEFAULT PHYSICIAN Facility:[facility] Procedures Date Procedure Procedure Detail Performing Clinician Start: 10-19-2023 Colonoscopy Vanna banuelos Bowel dysfunction (disorder) Otf Metzger Comment on above: recestion Colonoscopy Renata Ligia Comment on above: 20 years ago Gallbladder structur e (body structure) Otf Metzger Reduction mammoplasty Otf Metzger Plan of Treatment Date Care Activity Detail Author Start: 07-15-2025 Influenza vaccination [facility] Start: 03-28-2025 Adult [facility] Screening [facility] Start: 03-28-2025 Tobacco Screening [facility]ening [facility] Start: 12-14-2024 End: 12-14-2025 US Pelvis transabdominal and transvaginal Ultrasound pelvic with transvaginal Imaging Routine Cysts of both ovaries Expected: 12/14/2024, Expires: 12/14/2025 [employer] Work Phone: Comment on above: Expected: 12/14/2024 , Expires: 12/14/2025 Start: 10-26-2024 Adult BMI Screening [facility] Start: 10-26-2024 Tobacco Screening [facility]ening [facility] Start: 09-03-2024 DTaP,Tdap and Td Vac cines (2 - Td or Tdap) DTaP,Tdap and Td Vaccines (2 - Td or Tdap) [facility] Start: 07-15-2024 COVID-19 Vaccine ( season) COVID-19 Vaccine ( season) [facility] Start: 07-15-2024 Influenza vaccination Influenza Vacc ine [facility] Start: 03-28-2024 End: 03-28-2025 US Pelvis transabdominal and transvaginal Ultrasound pelvic with transvaginal Imaging Routine Cysts of both ovaries Expected: 03/28/2024, Expires: 03/28/2025 [facility] Work Phone: Comment on above: Expected: 03/28/2024 , Expires: 03/28/2025 Start: 03-28-2024 End: 03-28-2024 Patient encounter procedure 03/28/2024 9:30 AM EDT Office Visit [facility] [address] [place] [address] [address] [place] [address] Yohan Wilson MD [address] [place] [address] [facility] Start: 07-15-2023 COVID-19 Vaccine ( season) COVID-19 Vaccine ( season) [facility] Start: 1998 Screening for malign ant neoplasm of cervix Pap Smear [facility] Start: 1995 Adult BMI Follow Up Plan Adult BMI Follow Up Plan [facility] Start: 1989 [facility] - Serum or Plasma [facility] Immunizations Immunization Date Immunization Notes Care Provider Fa cility 08-28-2024 influenza virus vaccine, unspecified formulation Carrie Flores RN [facility] 08-29-2023 influenza virus vaccine, unspecified formulation Renata Strong [facility] Comment on above: Reason for Medicatio n: Prophylaxis 09-02-2022 influenza virus vaccine, unspecified formulation Otf Metzger [facility] Comment on above: Reason for Medicatio n: Prophylaxis 09-02-2022 influenza, injectabl e, quadrivalent, preservative free Otf Metzger Other [facility] 11-20-2021 COVID-19 Vaccine Moderna - Documentation Purposes Only Otf Metzger Other [facility] Comment on above: Reason for Medicatio n: Prophylaxis 08-26-2021 influenza virus vaccine, unspecified formulation Otf Jamilah [facility] Comment on above: Reason for Medicatio n: Prophylaxis 08-17-2021 influenza, seasonal, injectable Otf Garciaadrian Other [facility] 12-18-2020 COVID-19 Vaccine Moderna - Documentation Purposes Only Otf Metzger Other [facility] 11-20-2020 COVID-19 Vaccine Moderna - Documentation Purposes Only Otf Metzger Other [facility] 09-03-2014 influenza virus vaccine, unspecified formulation Renatagucci HolleyLigia [facility] 09-03-2014 tetanus and diphther ia toxoids, adsorbed, preservative free, for adult use (5 Lf of tetanus toxoid and 2 Lf of diphtheria toxoid) [facility] 09-03-2014 tetanus toxoid, redu carina diphtheria toxoid, and acellular pertussis vaccine, adsorbed Otf Garciaadrian Other [facility] Payers Date Payer Category Payer Commercial Managed C are - POS [employer] [id number] 2004 Private Health Insurance SHIRLEY SALAZAR POS II [id number] 2004-Present [phone] [address] [place] [address] [id number] 1977 Unknown [id number] 9.2.647 1977 Unknown [id number] 2.16.840.1.625612.3.57 9.2.647 1977 Unknown [id number] 2.16.840.1.152241.3.57 9.2.593 1977 Unknown [id number] 2.16.840.1.545544.3.57 9.2.593 1977 Unknown [id number] 2.16.840.1.939683.3.57 9.2.593 1977 Unknown [id number] 2.16.840.1.507772.3.57 9.2.593 1977 Unknown [id number] 2.16.840.1.864043.3.57 9.2.593 1977 Unknown [id number] 2.16.840.1.498950.3.57 9.2.593 1977 Unknown [id number] 2.16.840.1.743936.3.57 9.2.593 1977 Unknown [id number] 2.16.840.1.549570.3.57 9.2.1259 1977 Unknown [id number] 2.16.840.1.645481.3.57 9.2.1286 1977 Unknown [id number] 2.16.840.1.138360.3.57 9.2.727 1977 Unknown [id number] 2.16.840.1.357873.3.57 9.2.727 1977 Unknown [id number] 2.16.840.1.765809.3.57 9.2.727 1977 Unknown [id number] 2.16.840.1.607474.3.57 9.2.727 1977 Unknown [id number] 2.16.840.1.972535.3.57 9.2.1286 1977 Unknown [id number] 2.16.840.1.649841.3.57 9.2.1286 1959 Private Health Insurance [id number] 1959 Self-pay [id number] Private Health Insurance [id number] Self-pay Self Pay [id number] Unknown Unknown [employer] [place] [id number] Social History Date Type Detail Facility Unknown if ever smoked [employer] Other Start: 04-23-2019 End: 03-28-2024 Sex Assigned At [place] [employer] Other Start: 11-24-2019 End: 10-26-2023 Tobacco smoking status Never smoked tobacco (finding) [facility] Tobacco smoking status Never [facility] Start: 1975 Sex Assigned At Female F [facility] Start: 10-26-2023 Tobacco use and exposure Smokeless tobacco non-user [facility] Start: 10-26-2023 End: 03-28-2024 Alcoholic beverage intake Ex-drinker (finding) [facility] Start: 04-23-2019 End: 03-28-2024 History of Social function [facility] Start: 1977 Sex assigned at Not on file P [facility] Start: 06-17-2015 Sex Female (finding) [facility] Functional Status Date Assessment Result Facility 10-19-2023 Functional Status N/A Jacek - Zoe [facility] 09-13-2023 Functional Status N/A Melita [facility] Clinical Notes 06-22-2018 to 04-11-2025 Telephone Encounter - Carrie Flores RN - 04/11/2025 2:11 PM EDTTelephone Encounter - Carrie Flores RN - 04/11/2025 2:11 PM EDTTelephone Encounter - Ruth Pereira CMA - 12/14/2024 9:28 AM EST Note Date & Type Note Facility 04-11-2025 Miscellaneous Notes Formattin g of this note might be different from the original. [facility] order faxed to [place] at patient's request. Patient provided # [phone] for orders to be faxed. documented in this encounter [facility] 04-11-2025 Telephone encount er Note [facility] order faxed to [place] at patient's request. Patient provided # [phone] for orders to be faxed. [facility] 12-14-2024 Miscellaneous Notes Formattin g of this note might be different from the original. Patient called because she had an ultrasound in October and never received a call from the office with prognoses or plan of action. Shrub Planter consulted RN; ultrasound results forwarded to DAMIÁN for directives. Shrub Planter returned patient's call to inform her that the office will reach out again with a plan. Patient expressed gratitude and understanding. Shrub Planter also left voicemail for radiology at [facility] requesting ultrasound images be sent to [facility]. documented in this encounter [facility] 12-14-2024 Telephone encount er Note Patient called because she had an ultrasound in October and never received a call from the office with prognoses or plan of action. Shrub Planter consulted RN; ultrasound results forwarded to DAMIÁN for directives. Shrub Planter returned patient's call to inform her that the office will reach out again with a plan. Patient expressed gratitude and understanding. Shrub Planter also left voicemail for radiology at [email or web address] 03-28-2024 History of Presen t illness Narrative Subjective: Marquis is a 48 y.o. female here for consultation from for evaluation and management of bilateral ovarian cysts that are slowly enlarging. This nice patient has a complex surgical history which include a cholecystectomy with a subsequent colonic injury reoperation, resection with reanastomosis and significant wound VAC placement for several months postoperatively. She also had abnormal uterine bleeding for which she had an ablation earlier this year and she has now bilateral enlarging adnexal cystic lesions. 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 She is no personal or family history of GI or mushroom packer malignancies and no alleviating or exacerbating factors and no associated symptoms. We reviewed her most recent ultrasound imaging which reveals resolution of her previous large complex ovarian cyst, she is bilateral small simple cystic lesions of the ovaries which are likely functional cysts. We discussed discontinuing the OCPs and repeating an ultrasound in 2-3 months. Oncology History No overview note Marquis : Denies Early satiety Denies Abdominal distention Denies Leg swelling Denies Shortness of breath Denies Vaginal bleeding Denies Change in bowel habits Denies Change in bladder habits Denies Nausea and vomiting All other systems negative, unless specifically noted in HPI. Past Gynecologic History: OB History No obstetric history on file. No LMP recorded. Hormonal Contraceptives No HRT use No History of abnormal pap No Past Surgical History: Procedure Laterality Date APPENDECTOMY HYSTEROSCOPY W/ ENDOMETRIAL ABLATION ILEOCECECTOMY REDUCTION MAMMAPLASTY History reviewed. No pertinent past medical history. History reviewed. No pertinent family history. Social History Tobacco Use Smoking status: Never Smokeless tobacco: Never Substance Use Topics Alcohol use: Not Currently Review of Symptoms: Pertinent items are noted in HPI. Objective: BP 136/90 Pulse 78 Temp 36.7 C (98.1 F) (Oral) Ht 170.2 cm (5' 7.01 ) Wt 72.6 kg (160 lb) SpO2 98% BMI 25.05 kg/m ECO- Asymptomatic General appearance: alert, appears stated age and cooperative Head: Normocephalic, without obvious abnormality, atraumatic Ears: normal TM's and external ear canals both ears Neck: no adenopathy, no carotid bruit, no JVD, supple, symmetrical, trachea midline and thyroid not enlarged, symmetric, no tenderness/mass/nodules Lungs: clear to auscultation bilaterally Breasts: normal appearance, no masses or tenderness Heart: regular rate and rhythm, S1, S2 normal, no murmur, click, rub or gallop Abdomen: abnormal findings: Soft, nontender, nondistended, no rebound or guarding, well-healed vertical midline incision Pelvic: cervix normal in appearance, external genitalia normal, uterus normal size, shape, and consistency, vagina normal without discharge Extremities: extremities normal, atraumatic, no cyanosis or edema Pulses: 2+ and symmetric Skin: Skin color, texture, turgor normal. No rashes or lesions Lymph nodes: Cervical, supraclavicular, and axillary nodes normal. Neurologic: Grossly normal Labs: No results found for: WBC , RBC , HGB , HCT , MCH , MCHC , PLT , MPV , RDW No results found for: BUN , NA , K , CL , BICARBONATE , GLUCOSE , ALBUMIN , PROT , CA , ALKP , AST , LABBILI No results found for: GGT No results found for: LDH No results found for: MG No results found for: PHOS No results found for: URIC Assessment: Patient is diagnosed with Patient Active Problem List Diagnosis Cysts of both ovaries Plan: 1. The patient has a documented plan of care to address pain. 2. Bilateral ovarian cystic lesions-these have resolved over the last 6 months, we discussed discontinuing the control pills and reimaging in 2 months. 3. Repeat imaging and return to clinic in 2-3 months. 4. Total time spent was 42 minutes: Preparing to see the patient (e.g., review of tests) Obtaining and/or reviewing separately obtained history Performing a medically appropriate examination and/or evaluation Counseling and educating the patient/family/caregiver Ordering medications, tests, or procedures Referring and communicating with other health property caretaker (not separately reported) Documenting clinical information in the electronic or other health record Yohan Wilson MD documented in this encounter [facility] 03-15-2024 Miscellaneous Notes Formattin g of this note might be different from the original. Left Vm asking pt c/b r/t US results documented in this encounter [facility] 03-15-2024 Telephone encount er Note Left Vm asking pt c/b r/t US results [facility] 12-07-2023 Miscellaneous Notes Formattin g of this note might be different from the original. LVM for pt to call office and get scheduled with QUIN Meyers to discuss other control options. documented in this encounter [facility] 12-07-2023 Telephone encount er Note LVM for pt to call office and get scheduled with QUIN Meyers to discuss other control options. [facility] 12-05-2023 Evaluation note Encounter Date Diagnosis Assessment Notes Nov, Iron deficiency anemia (ICD-10 - D50.9) [employer] Other 12-06-2023 Hospital Discharge instructions Patient Education 10/19/2023 11:53:28 [facility] NSAIDS-Nonsteroidal Anti-Inflammatory Medications (CUSTOM) AvoidNonsteroidal Anti-Inflammatory Medications [...] pain neck pain Some NSAIDs are available [id number]-[id number], without the need for a prescription. However, [...] on caring for yourself [facility]. Your doctor may also give you specific [...] Care 09/13/2023 09:19:49 With:Elizabeth CHUA, [place] Fernandez, [facility] Address: [address] [place] [address], [address] [phone]- [phone] When: Unknown Comments:Office Will Call Date and Time of Follow-up Appt. [facility]10-31-2023 Evaluation + Plan note Future Scheduled Tests Laboratory* Fecal WBC Lactoferrin 09/13/23 * Giardia lamblia, Direct Detection EIA 09/13/23 * O & P Exam, Routine 09/13/23 * Clostridium Difficile PCR 09/13/23 * Enteric Panel by PCR 09/13/23 * CBC w/ Auto Diff 09/13/23 * Comprehensive Metabolic Panel 09/13/23 * Thyroid Stimulating Hormone 09/13/23 [facility]10-31-2023 Hospital Discharge instructions Patient Education 09/13/2023 [...] including vitamins, herbs, eye drops, creams, and ksxk-lwh-ickredb medicines. Any problems you or family members [...] provider tells you to take them. Taking gabx-kha-olodcbt medicines, vitamins, herbs, and supplements. General instructions [...] provider. Document Revised: 10/25/2022 Document Reviewed: 06/23/2022 [employer] Patient Education 2022 [employer]. Follow Up Care 08/26/2023 11:00:38 With:Renata Strong CNP Address: When:1 to 2 weeks Comments:Following Colonoscopy. [facility] 10-09-2023 Evaluation note* Encounter Date Diagnosis Assessment Notes [...] has lost one pound since last seen. [employer] Other 06-19-2023 Evaluation note* Encounter Date Diagnosis Assessment Notes Treatment Notes Treatment Clinical Notes Apr, Spastic colon (ICD-10 - K58.9) [employer] Other 04-21-2023 NoteOPERATIVE NOTE OPERATION DATE: 03/04/2023 PROCEDURE: Ama endometrial ablation with hysteroscopy. PREOPERATIVE DIAGNOSIS: Menorrhagia. POSTOPERATIVE DIAGNOSIS: Menorrhagia. ANESTHESIA: General. SURGEON: Silvio Quigley D.O. GUNCOTTON PACKER: None. BLOOD LOSS: 5 mL. URINE OUTPUT: [...] to recovery in stable condition.[id number] Evaluation note* Encounter Date Diagnosis Assessment Notes Treatment Notes Treatment Clinical Notes Jan, Spastic colon (ICD-10 - K58.9) [employer] Other 02-27-2023 Evaluation note* Encounter Date Diagnosis Assessment Notes Treatment Notes Treatment Clinical Notes Dec, Iron deficiency anemia (ICD-10 - D50.9) [employer] Other 12-12-2022 Evaluation note* Encounter Date Diagnosis [...] her overactive thyroid and was seeing an knee bolter in [place] for this in the past but has [...] I thought she was following with an knee bolter. She denies palpitations, weight loss, losing weight [...] off she should return to see the knee bolter. Call for results. Oct, Spastic colon (ICD-1 [...] Oct, Other 4:47 PM - 4:58 PM [employer] Other 09-12-2022 Evaluation note* Encounter Date Diagnosis [...] with above medication as needed. 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 She ended up seeing a [place] doctor and had an echocardiogram done and [...] does not have any of this medication. [employer] Other 08-09-2018 History general Narrative - Reported* [...] Hospitalization History [facility] - heart racing [employer] Other 08-09-2018 History general Narrative - Reported* [...] Hospitalization History [facility] ER - heart racing [employer] Other Evaluation + Plan note Future Appointments Appointment Date:10/19/2023 11:00:00 AM Scheduled Provider: Location:[facility] Appointment Type:Surgery FT Future Scheduled Tests Laboratory* Fecal WBC Lactoferrin 09/13/23 * Giardia lamblia, Direct Detection EIA 09/13/23 * O & P Exam, Routine 09/13/23 * Clostridium Difficile PCR 09/13/23 * Enteric Panel by PCR 09/13/23 * CBC w/ Auto Diff 09/13/23 * Comprehensive Metabolic Panel 09/13/23 * Thyroid Stimulating Hormone 09/13/23 [facility] Evaluation noteNo [facility] [employer] Other Evaluation note* Diagnosis Onset Date Resolution Status Abnormal mammogram acute Hyperglycemia acute Hyperthyroidism acute Iron deficiency anemia acute Spastic colon acute Spider bite acute [facility] Work Phone: Evaluation note* Diagnosis Cysts of both ovaries- Primary Other and unspecified ovarian cyst documented [facility] encounter [facility]* Diagnosis Cysts of both ovaries Other and unspecified ovarian cyst [facility] Narrative No data available for this section [facility] No data available for this section [facility] HospitalInstructionsNot on filedocumented in this encounter [facility] Center[facility]ructionsNot on filedocumented in this [facility] No data available for this section [facility] Summary Purpose Family History Relationship Condition Age at Onset Recorded Date/T ashley grandparent Unknown Advance Directives Advance Directive Response Recorded Date/ Time Advance Directives No June 27, 2018 7:15am Reason for Referral Reason appt pt needs cons ult with Dr. Johnson for a colonoscopy Diagnosis 1 Spastic colon (K58.9 ) Referral Organization [facility] Family Medicgiovanny Robert Referring Provider First Name Otf Referring Provider Last Name Jamilah Referring Provider Specialty Family Prac nate Referred Organization [facility] Referred Provider Vanna Johnson Referred Address [address] [facility] [address],[place], [place],[address] Referred Provider Specialty Gastroentero logy Referral Priority Routine General Notes Monica Mueller 08/22/2023 04:22:21 PM > referral faxed to Pending sale to [facility] with visit note and insurance card. pt understands she will be contacted to schedule this appt. Chief Complaint and Reason for Visit Chief Complaint review labs Reason for Visit Abnormal mammogram Hyperglycemia Hyperthyroidism Iron deficiency anemia Spastic colon Spider bite Additional Source Comments INFORMATION SOURCE (unrecogn ized section and content) DATE CREATED AUTHOR 11/23/2018 [facility] DATE CREATED AUTHOR AUTHOR'S ORGANIZ ATION 03/11/2023 [facility] DATE CREATED AUTHOR AUTHOR'S ORGANIZ ATION 10/01/2023 [facility] EPIC DATE CREATED AUTHOR AUTHOR'S ORGANIZ ATION 03/30/2024 [facility] DATE CREATED AUTHOR AUTHOR'S ORGANIZ ATION 12/16/2024 [facility] DATE CREATED AUTHOR AUTHOR'S ORGANIZ ATION 12/17/2024 [facility] REASON FOR VISIT (unrecogniz ed section and content) Reason Comments Med Refill Care Team (unrecognized sect ion and content) Team Status: Active Member Role Status Dates Otf Metzger DO Primary Care Provider Active Team Status: Active Member Role Status Dates Otf Metzger DO Primary Care Provide r, Attending Provider Active Start: February 27, 2024 Team Status: Inactive Member Role Status Dates Otf Metzger DO Primary Care Provide r, Attending Provider Active Start: March 05, 2024 End: March 05, 2024 Apiculturist Relationship Specialty Start Date End Date Otf Metzger DO [address] [place] [id number] PCP - General Family Medicine 10/26/23 Apiculturist Relationship Specialty Start Date End Date Otf Metzger DO [address] [place] [address] PCP - General Family Medicine 10/26/23 Apiculturist Relationship Specialty Start Date End Date Otf Metzger DO [address] [place] [place] [address] PCP - General Family Medicine 10/26/23 Apiculturist Relationship Specialty Start Date End Date Otf Metzger DO [address] [place] [place] [address] PCP - General Family Medicine 10/26/23 Apiculturist Relationship Specialty Start Date End Date Otf Metzger DO [address] [place] [address] [place] [address] PCP - General Family Medicine 10/26/23 Goals (unrecognized section and content) Goals may [...] BE BASED ON THE PRIMARY CLINICAL RECORDS. [facility]. provides no warranty or guarantee of the accuracy or completeness of information in this document.
--- OUTSIDE RECORDS SUMMARY | 2025-05-09 20:18 | XMS_ITS | Clinical Summary ---
Author Organization [facility] Address [address] [place] [address] Care Team Providers Care Manager Work Name Role Phone Dustin Askew Primary Care Provider [phone] Allergies No known active allergies Medications hydrocodone bit/acetaminoph en(VICODIN 5 MG-500 MG TAB)Indications :Neoplasm of uncertain behavior of connective and other soft tissue Take 1 tablet) every six(6) hours as needed for pain. 40 1 9 Active levonorgestrel- eth estra(ANTON 0.15 MG-30 MCG TAB) Take one(1) tablet daily. 0 9 Active ascorbic acid(VITAMIN C 1,000 MG TAB) Take one(1) tablet daily. 0 9 Active OMEGA-3 FATTY ACIDS 1,000 MG CAP Take one(1) tablet daily. 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 Family History Medical History Relation Comments Hypertension Father Lung cancer [Other] Maternal Grandfather COPD Maternal Grandmother Diabetes Mother Hypertension Mother Pancreatic Cancer [Other] Paternal Grandfather Ischemic Heart Disease Paternal Grandmother Relation Status Comments Father Maternal Grandfather Maternal Grandmother Mother Paternal Grandfather Paternal Grandmother Social History Tobacco Use Types Packs/Day Years Used Date Smoking Tobacco: Every Day Cigarettes Comments:SMOKES 5-7 CIGARETT ES WEEKLY Alcohol Use Standard Drinks/Week Comments Yes 0 (1 standard drink = 0.6 oz pur e alcohol) socially Comments No Sex and Gender Information Value Date Recorded Sex Assigned at Not on file Legal Sex Female 8:22 AM EST Gender Identity Not on file Sexual Orientation Not on file Last Filed Vital Signs Vital Sign Reading Time Taken Comments Blood Pressure 97/56 10/18/2009 7:00 AM EST Pulse 73 10/18/2009 7:00 AM EST Temperature 36.4 C (97.5 F) 10/18/2009 7:00 AM EST Respiratory Rate 18 10/18/2009 7:00 AM EST Oxygen Saturation 100% 10/18/2009 7:00 AM EST Inhaled Oxygen Concentration - - Weight 80.4 kg (177 lb 4 oz) 10/17/2009 5:47 AM EST Height 170 cm (5' 6.93 ) 10/17/2009 5:47 AM EST Body Mass Index 27.82 10/17/2009 5:47 AM EST Plan of Treatment Health Maintenance Due Date Last Done Comments Anxiety Screening 1995 Depression Screening 1995 HIV Screening 1995 Hepatitis C Screening 1995 DTaP,Tdap,Td Vaccine (1 - Tdap) 1996 Hepatitis B Vaccine (1 of 3 - 19+ 3-dose series) 12/03 Cervical Cancer Screening [address] Colonography 2022 Cologuard (FIT-DNA) 2022 Colonoscopy 2022 Colorectal Cancer Screening 2022 Diabetes Screening 2022 10/14/2009 Fecal Occult Blood 2022 Lipid Screening 2022 Sigmoidoscopy 2022 Covid-19 Vaccine (1 - 2024-25 season) 2024 Influenza Vaccine (Season Ended) 2025 Procedures Procedure Name Priority Date/Time Associated Diagnosis Comments COMPREHENSIVE METABOLIC PANEL Routine 10/14/2009 8:15 AM EST Neoplasm of Uncertain Behavior of Connective and Other Soft Tissue from Last 3 Months or Most Recently Relevant to Health Maintenance Results * (ABNORMAL) COMP METABOLIC PANEL (10/14/2009 8:15 AM EST) Protein, Total 6.9 6.0 - 8.4 g/dL [facility] Albumin 4.1 3.5 - 5.0 g/dL [facility] Calcium 9.1 8.5 - 10.5 mg/dL [facility] Bilirubin, Total 0.3 0.0 - 1.5 mg/dL [facility] Alkaline Phosphatase 74 40 - 150 U/L [facility] AST 21 7 - 40 U/L [facility] Glucose 97 65 - 100 mg/dL [facility] BUN 11 8 - 25 mg/dL [facility] Creatinine 0.63(L) 0.70 - 1.40 mg/dL [facility] Sodium 139 132 - 148 mmol/L [facility] Potassium 4.1 3.5 - 5.0 mmol/L [facility] Chloride 105 98 - 110 mmol/L [facility] CO2 25 23 - 32 mmol/L [facility] Anion Gap 9 0 - 15 mmol/L [facility] ALT 22 0 - 45 U/L [facility] eGFR- >60 [facility] eGFR-All Other Races >60 . [facility] Comment: eGFR (Estimated GFR) Units of measure: mL/min/1.73 meters squared eGFR is derived from the reexpressed MDRD Study equation using the following parameters: serum creatinine, age, gender and race. The creatinine assay has been calibrated to be traceable to IDMS. An eGFR <60 mL/min/1.73m2 for >3 months is consistent with chronic kidney disease. Refer to KDOQI guidelines for clinical interpretation. Blood specimen (specimen) BLOOD SPECIMEN / Unknown 10/14/2009 8:15 AM EST us Quinn Mcneal MD LABORATORY Final Result [facility] [address] [place] [address] from Last 3 Months or Most Recently Relevant to Health Maintenance Insurance [facility] AET[employer] Care Teams Manager Work Relationship Specialty Start Date End Date Dustin Askew DO PCP - General 09/03/09
--- OUTSIDE RECORDS SUMMARY | 2025-05-09 20:18 | XMS_ITS | Encounter Summary ---
Author Organization [facility] Address [address] [facility] [place] [address] Care Team Providers Care Crimping Machine Operator Name Role Phone Dustin Askew MD Primary Care Provider Encounter Details Date Type Department Care Team (Late st Contact Info) Description 03/28/2024 Abstract [facility] [address] [place] [phone] Desire Yin LPN [address] [place] [id number] Social History Tobacco Use Types Packs/Day Years Used Date Smoking Tobacco: Never Smokeless Tobacco: Never Alcohol Use Standard Drinks/Week Comments Yes 0 (1 standard drink = 0.6 oz pur e alcohol) occasional alcohol use Comments Unknown Sex and Gender Information Value Date Recorded Sex Assigned at Female 06/01/2023 4:36 PM EDT Legal Sex Female 7:22 PM EDT Gender Identity Female 06/01/2023 4:36 PM EDT Sexual Orientation Not on file documented as of this encounter Plan of Treatment Not on file documented as of this encounter Visit Diagnoses Not on filedocumented in this encounter Care Teams Crimping Machine Operator Relationship Specialty Start Date End Date Dutsin Askew MD [address] [place] [address] [place] [address] PCP - General Family Medicine 06/08/23 documented as of this encounter
--- OUTSIDE RECORDS SUMMARY | 2025-05-09 20:18 | XMS_ITS | Encounter Summary ---
Author Organization [facility] Address [address] [place] [address] Care Team Providers Care Tax Associate Name Role Phone Otf Metzger MD Primary Care Provider [phone] Encounter Details Date Type Department Care Team (Late st Contact Info) Description 09/02/2023 Clinisync Result Encounter [facility] External Department Unsolicited Silvio Quigley, DO [address] [facility] [address] [place], [place] [id number] Social History Tobacco Use Types Packs/Day Years [...] on file documented as of this encounter Procedures Procedure Name Priority Date/Time Associated Diagnosis Comments US PELVIS W/ TRANSVAGINAL 09/02/2023 12:04 PM EDT documented in this encounter Results * US PELVIS W/ TRANSVAGINAL (09/02/2023 12:04 PM EDT) Anatomical Region Laterality Modality Other 09/02/2023 12:0 4 PM EDT Narrative 09/02/2023 12:04 PM EDT [address] [address] Ultrasound Report Signed Patient: Marquis Carroll MR#: [id number] : 1975 Acct:[id number] Age/Sex: 47 / F ADM Date: 09/02/23 Loc: US Attending Dr: Silvio Quigley D.O. Ordering Physician: Silvio Quigley D.O. Date of Service: 09/02/23 Procedure(s): US pelvis w/ transvaginal Accession Number(s): [id number] cc: Silvio Quigley D.O.; OTF METZGER [address] [address] Patient Name: MARQUIS CARROLL MRN: [id number] date: 1975 Sex: F Assigned Patient Location: US Current Patient Location: US Accession/Order Number: [id number] Exam Date: 09/02/2023 09:06 Report Date: 09/02/2023 12:04 At the request of: SILVIO QUIGLEY Procedure: US pelvis w/ transvaginal EXAMINATION: US pelvis w/ transvaginal HISTORY: Left Ovarian Cyst N83.202 COMPARISON: 05/02/2023 FINDINGS: The uterus is normal in size measuring 9.9 x 3.8 x 4.9 cm, anteverted. Heterogeneous area of hypoechogenicity identified the anterior myometrium measuring 2.7 x 2.2 x 2.0 cm. A fibroid is favored. The endometrium is poorly visualized grossly measuring 5 mm. The right ovary measures 6.8 x 3.8 x 3.9 cm. 3.8 cm area of anechoic echogenicity likely a simple cyst. Normal color and Doppler flow in the ovary. The left ovary measures 5.5 x 4.6 x 5.6 cm. Normal color and Doppler flow. Complex cystic structure without vascularity measuring 4.3 x 3.9 x 3.6 cm. No free fluid US/US pelvis w/ transvaginal IMPRESSION: Bilateral ovarian cysts simple in the right, complex on the left Electronically authenticated by: OTF KUMAR Date: 09/02/2023 12:04 Dictated By: Otf Kumar M.D. Signed By: 09/02/23 1206 DD/ 1204 TD/TT: Clinic Administrator: Procedure Note Radiology, Radiologist, - 09/02/2023 [place] [address] Ultrasound Report Signed Patient: Marquis Carroll LMR#: [id number] : 1975Acct:[id number] Age/Sex: 47 / FADM Date: 09/02/23 Loc: US Attending Dr: Silvio Quigley D.O. Ordering Physician: Silvio Quigley D.O. Date of Service: 09/02/23 Procedure(s): US pelvis w/ transvaginal Accession Number(s): [id number] cc: Silvio Quigley D.O.; OTF METZGER [place] [id number] Patient Name: MARQUIS CARROLL MRN: [id number] date: 1975 Sex: F Assigned Patient Location: US Current Patient Location: US Accession/Order Number: [id number] Exam Date: 09/02/2023 09:06 Report Date: 09/02/2023 12:04 At the request of: SILVIO QUIGLEY Procedure: US pelvis w/ transvaginal EXAMINATION: US pelvis w/ transvaginal HISTORY: Left Ovarian Cyst N83.202 COMPARISON: 05/02/2023 FINDINGS: The uterus is normal in size measuring 9.9 x 3.8 x 4.9 cm, anteverted. Heterogeneous area of hypoechogenicity identified the anterior myometrium measuring 2.7 x 2.2 x 2.0 cm. A fibroid is favored. The endometrium is poorly visualized grossly measuring 5 mm. The right ovary measures 6.8 x 3.8 x 3.9 cm. 3.8 cm area of anechoic echogenicity likely a simple cyst. Normal color and Doppler flow in theovary. The left ovary measures 5.5 x 4.6 x 5.6 cm. Normal color and Doppler flow. Complex cystic structure without vascularity measuring 4.3 x 3.9 x 3.6 cm. No free fluid US/US pelvis w/ transvaginal IMPRESSION: Bilateral ovarian cysts simple in the right, complex on the left Electronically authenticated by: OTF KUMAR Date: 09/02/2023 12:04 Dictated By: Otf Kumar M.D. Signed By:09/02/23 1206 DD/ 1204 TD/TT: Clinic Administrator: us Silvio Soraida DO [facility] Final Result documented in this encounter Visit Diagnoses Not on filedocumented in this encounter Care Teams Tax Associate Relationship Specialty Start Date End Date Otf Metzger MD [address] [place] [address] [place] [address] PCP - General Family Medicine 06/08/23 documented as of this encounter
--- OUTSIDE RECORDS SUMMARY | 2025-05-09 20:18 | XMS_ITS | Clinical Summary ---
Author Organization [facility] Address [address] [place] [address] Care Team Providers Care Cloth Cutting Inspector Name Role Phone Dustin Askew MD Primary Care Provider [phone] Allergies No known active allergies Medications ferrous sulfate 325 (65 Fe) MG EC tablet Take 325 mg by mouth. Active diazePAM (Valium) 5 MG tablet Take 5 mg by mouth every 8 (eight) hours if needed. 06/08/2023 Active Family History Medical History Relation Name Comments Hypertension Father Diabetes Mother Pancreatic cancer Paternal Grandfather Relation Name Status Comments Brother Alive Father Alive Mother Alive Paternal Grandfather Son Alive Social History Tobacco Use Types Packs/Day Years Used Date Smoking Tobacco: Never Smokeless Tobacco: Never Tobacco Cessation:Counseling Given: Not Answered Alcohol Use Standard Drinks/Week Comments Yes 0 (1 standard drink = 0.6 oz pur e alcohol) occasional alcohol use Comments Unknown Sex and Gender Information Value Date Recorded Sex Assigned at Female 06/01/2023 4:36 PM EDT Legal Sex Female 7:22 PM EDT Gender Identity Female 06/01/2023 4:36 PM EDT Sexual Orientation Not on file Last Filed Vital Signs Vital Sign Reading Time Taken Comments Blood Pressure 122/80 09/29/2023 10:25 AM EST Pulse - - Temperature - - Respiratory Rate - - Oxygen Saturation - - Inhaled Oxygen Concentration - - Weight 71.2 kg (157 lb) 09/29/2023 10:25 AM EST Height 170.2 cm (5' 7 ) 06/08/2023 10:15 AM EDT Body Mass Index 24.59 06/08/2023 10:15 AM EDT Plan of Treatment Health Maintenance Due Date Last Done Comments CT Colonography 1977 Colonoscopy 1977 Colorectal Cancer Screening 1977 FIT-DNA 1977 FIT 1977 FOBT 1975 Sigmoidoscopy 1977 Pap Smear 1998 Cervical Cancer Screening 2007 HPV/Cotest 2007 Mammogram 2017 Influenza Vaccine (Season Ended) 2025 08/29/2023, 09/02/2022, 08/26/2021, Additional history exists Insurance [employer] Care Teams Cloth Cutting Inspector Relationship Specialty Start Date End Date Dustin Askew MD [address] [place] [id number] PCP - General Family Medicine 06/08/23
--- OUTSIDE RECORDS SUMMARY | 2025-05-09 20:18 | XMS_ITS | Encounter Summary ---
Author Organization [employer] Address [id number] [address] [place] [address] Care Team Providers Care Wood Pile Driver Operator Name Role Phone Dustin Askew DO Primary Care Provider [phone] Encounter Details Date Type Department Care Team (Late st Contact Info) Description 10/01/2024 Orders Only [facility] Oncology [address] [place] [id number] Amira Snider CMA Cysts of both ovaries Social History Tobacco Use Types Packs/Day Years Used Date Smoking Tobacco: Never Smokeless Tobacco: Never Alcohol Use Standard Drinks/Week Comments Not Currently 0 (1 standard drink = 0.6 oz pur e alcohol) Childcare Answer Date Recorded Childcare Unknown 04/23/2019 Employment Answer Date Recorded Employment Unknown 04/23/2019 Comments Unknown Sex and Gender Information Value Date Recorded Sex Assigned at Not on file Legal Sex Female 12:20 PM EDT Gender Identity Not on file Sexual Orientation Not on file documented as of this encounter Plan of Treatment Not on file documented as of this encounter Procedures Procedure Name Priority Date/Time Associated Diagnosis Comments US PELVIC WITH TRANSVAGINAL Routine 09/27/2024 8:00 AM EST Cysts of both ovaries documented in this encounter Results * Ultrasound pelvic with transvaginal (09/27/2024 8:00 AM EST) Anatomical Region Laterality Modality Body, Pelvis Ultrasound 09/27/2024 8:00 AM EST us Yohan Hi MD [facility] [place] ORDERABLES Final Result documented in this encounter Visit Diagnoses Diagnosis Cysts of both ovaries Other and unspecified ovarian cyst documented in this encounter Care Teams Wood Pile Driver Operator Relationship Specialty Start Date End Date Dustin Askew DO [address] [place] [address] [address] [place] [address] PCP - General Family Medicine 10/26/23 documented as of this encounter
--- OUTSIDE RECORDS SUMMARY | 2025-05-09 20:18 | XMS_ITS | Referral Summary ---
Author Organization [facility] Address [address] [place] [address] Care Team Providers Care Train Dispatcher Name Role Phone Unavailable Primary Care Provider Unavailabl e Social History Tobacco Use Types Packs/Day Years Used Date Smoking Tobacco: Never Assessed Comments Unknown Sex and Gender Information Value Date Recorded Sex Assigned at Not on file Legal Sex Female 12:10 AM EDT Gender Identity Not on file Sexual Orientation Not on file Last Filed Vital Signs Vital Sign Reading Time Taken Comments Blood Pressure 106/70 12/14/2018 3:39 PM EST Pulse - - Temperature - - Respiratory Rate - - Oxygen Saturation 99% 12/14/2018 3:38 PM EST Inhaled Oxygen Concentration - - Weight 70.3 kg (155 lb) 12/14/2018 3:38 PM EST Height 170.2 cm (5' 7 ) 12/14/2018 3:34 PM EST Body Mass Index 24.28 12/14/2018 3:34 PM EST Plan of Treatment Not on file
--- OUTSIDE RECORDS SUMMARY | 2025-05-09 20:18 | XMS_ITS | Clinical Summary ---
Author Organization [facility] Address [id number] [address] [place] [address] Care Team Providers Care Party Plan Sales Unit Advisor Name Role Phone JamilahDustin Jesús LION Primary Care Provider [phone] Allergies No known active allergies Medications ferrous sulfate 325 (65 FE) mg EC tablet Take 1 tablet (325 mg total) by mouth. Active diazePAM (VALIUM) 5 mg tablet 30 tab(s), 0 Refill(s), Refills(s) 0 06/08/2023 Active L norgest/e.estra dioL-e.estrad (AMETHIA) 0.15 mg-30 mcg (84)/10 mcg (7) tablets,dose pack,3 monthIndication s:Cysts of both ovaries TAKE 1 TABLET BY MOUTH EVERY DAY IN THE MORNING 91 tablet 2 01/17/2024 Active Active Problems Problem Noted Date Diagnosed Date Cysts of both ovaries 10/26/2023 Encounters Date Type Department Care Team Description 04/11/2025 Telephone [facility] Gynecology Oncology, A Department of [facility] [address] [email or web address] [address] [place] [address] Carrie Flores RN from Last 3 Months Social History Tobacco Use Types Packs/Day Years Used Date Smoking Tobacco: Never Smokeless Tobacco: Never Tobacco Cessation:Counseling Given: Not Answered Alcohol Use Standard Drinks/Week Comments Not Currently [...] Sign Reading Time Taken Comments Blood Pressure 136/90 03/28/2024 9:22 AM EDT Pulse 78 03/28/2024 9:22 AM EDT Temperature 36.7 C (98.1 F) 03/28/2024 9:22 AM EDT Respiratory Rate - - Oxygen Saturation 98% 03/28/2024 9:22 AM EDT Inhaled Oxygen Concentration - - Weight 72.6 kg (160 lb) 03/28/2024 9:21 AM EDT Height 170.2 cm (5' 7.01 ) 03/28/2024 9:21 AM ED T Body Mass Index 25.05 03/28/2024 9:21 AM EDT Plan of Treatment Health Maintenance Due Date Last Done Comments Depression Screening 1989 Pap Smear 1998 COVID-19 Vaccine ( - 2023-2 5 season) 2024 11/20/2021, 12/18/2020, 11/20/2020 DTaP,Tdap and Td Vaccines (2 - Td or Tdap) 09/03/2024 09/03/2014 Adult BMI Screening 03/28/2025 03/28/2024 Tobacco Screening 03/28/2025 03/28/2024 Influenza Vaccine 07/15/2025 08/28/2024, , 09/02/2022, Additional history exists Medical Devices Not on file Insurance [employer] Care Teams Party Plan Sales Unit Advisor Relationship Specialty Start Date End Date Dustin Askew DO [address] [place] [address] [place] [address] [place] [address] PCP - General Family Medicine 10/26/23
--- OUTSIDE RECORDS SUMMARY | 2025-05-09 20:18 | XMS_ITS | Clinical Summary ---
Author Organization [facility] Address [address] [place] [address] Care Team Providers Care Junior Architect Name Role Phone Unavailable Primary Care Provider [...]
--- OUTSIDE RECORDS SUMMARY | 2025-05-09 20:18 | XMS_ITS | Encounter Summary ---
Author Organization [facility] Address [id number] [address] [place] [address] Care Team Providers Care Global Risk Management Director Name Role Phone Dustin Askew DO Primary Care Provider Encounter Details Date Type Department Care Team (Late st Contact Info) Description 03/15/2024 Orders Only [facility] Gyne[facility] Oncology [address] [place] [phone] Ref Prov, [place] [address] Social History Tobacco Use Types Packs/Day Years [...] Diagnosis Comments US PELVIC WITH TRANSVAGINAL Routine 03/15/2024 8:22 AM EDT documented in this encounter Results * Ultrasound pelvic with transvaginal (03/15/2024 8:22 AM EDT) Anatomical Region Laterality Modality Body, Pelvis Ultrasound us Not In System Ref Prov IMG US ORDERABLES Final R esult documented in this encounter Visit Diagnoses Not on filedocumented in this encounter Care Teams Global Risk Management Director Relationship Specialty Start Date End Date Dustin Askew DO [address] [place] [address] [place] [address] PCP - General Family Medicine 10/26/23 documented as of this encounter
--- NOTE | 2025-05-09 20:19 | US_ITS ---
The [address] [address] Patient Name: BLUE SAN MRN: [id number] date: 1975 Sex: F Assigned Patient Location: Current Patient Location: Accession/Order Number: [id number] Exam Date: 05/10/2025 08:23 Report Date: 05/10/2025 08:30 At the request of: NON-STAFF PHYSICIAN Procedure: US pelvis w/ transvaginal ULTRASOUND PELVIS WITH TRANSVAGINAL COMPARISON: 09/27/2024 CLINICAL DATA: History of ovarian cyst. Real-time ultrasound evaluation the pelvis was performed utilizing both a transabdominal and transvaginal approach. TRANSABDOMINAL: Estimated uterine size is approximately 9.1 x 4.3 x 5.3 cm. The myometrium is mildly heterogeneous. The endometrial lining is estimated at 6-7 mm. Both ovaries are seen. There are cystic areas, larger on the left. TRANSVAGINAL: By this approach, the myometrium is heterogeneous. No focal masses are noted. The endometrial lining is estimated at 4 - 5 mm. Both ovaries are again visualized. The right measures 2.6 x 1.7 x 2.1 cm. There is an irregular cystic structure measuring measuring approximately 2.7 cm in greatest dimension. The left ovary measures 5.3 x 3.3 x 5.0 cm. There are are multiple cystic areas with the largest measuring 4.3 x 3.1 x 4.4 cm. There is documentation of ovarian blood flow with resistive indices bilaterally of 0.6. No free fluid is noted. US/US pelvis w/ transvaginal IMPRESSION: PERSISTENT BILATERAL OVARIAN CYSTS, LARGER ON THE LEFT. Impression dictated by: Karla Hackett M.D. 05/10/2025 8:30 AM Dictation Location: [place] [address] Electronically authenticated by: [id number] Y Date: 05/10/2025 08:30
== END 2025-05-09 20:14 | disposition home or self-care (01) ==
PROVIDERS: PCP Family Medicine
DX: N83.201 Unspecified ovarian cyst, right side (principal); N83.202 Unspecified ovarian cyst, left side
CPT/HCPCS: 76830; 76856

== ENCOUNTER 2025-08-07 14:07 | Outpatient (OUT) | payer OTHER, SELFPAY ==
--- NOTE | 2025-08-07 14:10 | US_ITS ---
The [address] [address] Patient Name: BLUE SAN MRN: [id number] date: 1975 Sex: F Assigned Patient Location: US Current Patient Location: US Accession/Order Number: [id number] Exam Date: 08/07/2025 14:11 Report Date: 08/07/2025 17:16 At the request of: OTF METZGER Procedure: US thyroid US thyroid 08/07/2025 2:47 PM SIGNS AND SYMPTOMS: ^Dysphagia, R13.10 COMPARISON: 07/01/2021 FINDINGS: Right and left thyroid lobes are normal in size and echotexture. The right thyroid lobe measures 3.7 x 1.1 x 1.1 cm and the left thyroid lobe measures 4.8 x 1.7 x 1.4 cm. The isthmus measures 1.5 cm in thickness. Multiple subcentimeter nodules are noted bilaterally. There is a 3 x 3 x 3 mm solid appearing isoechoic nodule at the interpolar region on the right with focal punctate calcification. At the interpolar region on the left there is a 5 x 4 x 4 mm nodule with ill-defined margins. There are coarse calcifications. This is isoechoic and solid in appearance. At the superior pole on the left there is a 5 x 3 x 4 mm hypoechoic solid-appearing nodule with smooth well-defined margins microcalcifications. Additional smaller left suspicious nodules are present bilaterally. No cervical lymphadenopathy is noted. US/US thyroid IMPRESSION: TIRADS: 4 (moderately suspicious) Multiple subcentimeter heterogeneous nodules are redemonstrated without significant interval change. Recommendation: No further ultrasound follow-up is recommended as the lesions are all less than 1 cm in dimension. Impression dictated by: Vick Colvin M.D. 08/07/2025 5:16 PM Dictation Location: [place] [address] Electronically authenticated by: [id number] Y Date: 08/07/2025 17:16
--- OUTSIDE RECORDS SUMMARY | 2025-08-07 14:10 | XMS_ITS | CCD ---
Author Organization [facility] Care Team Providers Care Mold Designer Name Role Phone PHYSICIAN, DEFAULT Unavailable Unavailable PHYSICIAN, DEFAULT Unavailable Unavailable PHYSICIAN, DEFAULT Unavailable Unavailable PHYSICIAN, DEFAULT Unavailable Unavailable Otf Metzger Unavailable Otf Metzger Primary Care Physician [phone] KAYLI ., DR ANGUIANO Admitting Unavailable KAYLI ., DR ANGUIANO Attending Unavailable BELSANO, DR OTF Haro Consulting Unavailable KAYLI ., DR ANGUIANO Consulting Unavailable KAYLI ., DR ANGUIANO Admitting Unavailable KAYLI ., DR ANGUIANO Attending Unavailable KAYLI ., DR ANGUIANO Consulting Unavailable KAYLI ., DR ANGUIANO Admitting Unavailable KAYLI ., DR ANGUIANO Attending Unavailable KAYLI ., DR ANGUIANO Consulting Unavailable JL II, ADRIEL Consulting Unavailable FILUTZE, CHAVA Consulting Unavailable KAYLI ., DR ANGUIANO [...] Attending Unavailable OTF METZGER Referring Unavailable OTF METZGRE Primary Care Unavailable Otf Metzger DO Primary Care Provider Otf Metzger Admitting Unavailable Otf Metzger Referring Unavailable Otf Metzger Attending Unavailable REFERRAL, SELF Referring Unavailable REFERRAL, SELF Attending Unavailable REFERRAL, SELF Admitting Unavailable Otf Metzger Consulting Unavailable DO Otf Metzger Consulting Unavailable Randall WILDER Attending Unavailable Meche PINK Attending Unavailable OTF METZGER Referring Unavailable OTF METZGER Primary Care Unavailable OTF METZEGR Referring Unavailable OTF METZGER Primary Care Unavailable Otf Metzger DO Primary Care Provider Otf Metzger DO Primary Care Provider [phone] Otf Metzger DO Attending Provider Medications Current Medications Medication Drug Class(es) Dates Sig (Normalized) Sig (Original) calcium ascorbate 500 mg oral tablet (1 source) Start: 07-29-2025 take 1 tablet by mouth every other day Ascorbate Calcium (Vitamin C) 500 mg tablet Active 500 MG PO .COMPLEX July 29, 2025 12:00am 500 mg orally 2 days a week with iron tablet; Complies with drug therapy diazePAM 5 mg oral tablet (20 sources) Benzodiazepine Start: 09-15-2016 diazePAM (VALIUM) 5 mg tablet 30 tab(s), 0 Refill(s), Refills(s) 0 06/08/2023 Active Ethinyl Estradiol / Levonorgestrel (9 sources) Progestin, Estrogen, Progestin-containing Intrauterine Device Start: [...] 325 mg oral tablet (20 sources) Start: 07-29-2025 take 1 tablet by mouth every other day Ferrous Sulfate 325 mg (65 mg iron) tablet Active 325 MG PO .COMPLEX 8 July 29, 2025 12:00am 325 mg orally 2 days a week; Complies with drug therapy Start: 03-05-2024 End: 09-17-2024 Ferrous Sulfate 325 mg (65 m g iron) tablet Discontinued 325 MG PO Every 48 hours March 05, 2024 3:38pm September 17, 2024 5:29pm [employer] tablet Orally every other day; Note: Source Status: Refill; Refills: 3; Provider: Jamilah Espinosa Start: 03-01-2024 End: 03-05-2024 Ferrous Sulfate 325 mg (65 m g iron) tablet Discontinued 1 TAB PO Every 48 hours [...] Status: Ordered ondansetron 4 mg oral tablet (20 sources) Serotonin-3 Receptor Antagonist Start: 03-01-2024 End: 06-11-2025 Ondansetron Hcl 4 mg tablet Active 4 MG PO EVERY 8-12 HOURS as needed for nausea June 11, 2025 3:30pm Complies with drug therapy Start: 03-01-2024 End: 03-05-2024 Ondansetron Hcl Discontinued [...] Dec, Active valACYclovir 1000 mg oral tablet (17 sources) Herpesvirus Nucleoside Analog DNA Polymerase Inhibitor, Herpes Simplex Virus Nucleoside Analog DNA Polymerase Inhibitor, Herpes Zoster Virus Nucleoside Analog DNA Polymerase Inhibitor Start: 06-14-2024 End: 07-01-2025 Valacyclovir (Valtrex) 1 gram tablet Active 1000 MG PO Three times daily 03 06July 01, 2025 9:24am Complies with drug therapy Start: 03-01-2024 End: 06-14-2024 take 1 tablet by mouth three times daily Valacyclovir (Valtrex) 1 gram tablet Discontinued 1000 MG PO March 05, 2024 3:39pm June 14, 2024 11:07am [employer] tablet Orally tid x7 days; Note: [...] mg / clavulanate 125 mg oral tablet (2 sources) Penicillin-class Antibacterial Start: 03-05-2024 End: 09-17-2024 take 1 tablet by mouth twice daily at mealtime Amoxicillin-Pot Clavulanate 875-125 mg tablet Discontinued 1 TAB PO Twice daily 02 09March 05, 2024 12:00am September 17, 2024 5:07pm with food Ascorbic Acid (6 sources) Vitamin C Start: 09-17-2024 End: 09-17-2024 Vitamin c Discontinued PO September 17, 2024 1:00am September 17, 2024 5:29pm Start: 03-01-2024 End: 03-05-2024 take 1 tablet by mouth once daily Ascorbic Acid (Vitamin C) 500 mg tablet,chewable Discontinued 500 MG PO Daily March 05, [...] grm cyclobenzaprine hydrochloride 10 mg oral tablet (20 sources) Muscle Relaxant Start: 03-01-2024 End: 09-17-2024 take 1 tablet by mouth every eight hours as needed Cyclobenzaprine 10 mg tablet Discontinued 10 MG PO Every 8 hours as needed September 17, 2024 5:32pm September 17, 2024 5:33pm Start: 12-08-2015 take 1 tablet by diann [...] tachycardia 08-27-2019 Chronic Deficiency and other anemia (13 sources) Iron deficiency anemia; Translations: [Iron deficiency anemia, unspecified] 03-05-2024 Episodic Deficiency and other anemia (7 sources) Iron deficiency anemia, unspecified; Translations: [Iron deficiency anemia, unspecified] Onset: 09-25-2021 Resolved: 07-26-2022 Episodic Diabetes mellitus without complication (6 sources) Hyperglycemia, unspecified; Translations: [Hyperglycemia] Onset: 09-25-2021 [...] UNS] Onset: 03-09-2023 Chronic Other gastrointestinal disorders (12 sources) Irritable bowel syndrome; Translations: [Irritable bowel [...] Translations: [Diarrhea, unspecified] Onset: 09-13-2023 Episodic Other gastrointestinal disorders (2 sources) Dysphagia; Translations: [Dysphagia, unspecified] 07-29-2025 Episodic Other nutritional; endocrine; and metabolic disorders (1 source) Abnormal weight loss Episodic Other screening for suspected conditions (not mental disorders or infectious disease) (11 sources) Encounter for screening mammogram for malignant neoplasm of breast; Translations: [Encounter for screening for malignant neoplasm of cervix] Onset: 02-08-2023 Episodic Ovarian cyst (20 sources) Unspecified ovarian cyst, right side; Translations: [Unspecified ovarian cyst, left side] Onset: 01-22-2023 Episodic Poisoning by nonmedicinal substances (3 sources) Spider bite wound; Translations: [Toxic effect of unspecified spider venom, accidental (unintentional), initial encounter] 03-05-2024 Episodic Comment on above: right hip Residual codes; unclassified (1 source) Acquired absence [...] te Episodic/Chronic Other aftercare (1 source) 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 Onset: 07-26-2022 Resolved: 07-26-2022 Episodic Unclassified (6 sources) Entire gallbladder (body structure) 11-10-2015 Results Test Name Value Interpretation Reference Range Facility Consent for Treatmenton 02-13 Consent for Treatment [id number] Normal [facility] US Breast Unilateral Rt Comp leteon [...] 2-Benign finding Recommendation: Normal interval follow-up Normal [facility] Physician Orderon 03-02-2024 Physician Order [id number] Normal [facility] Laboratory - Hematology and Cell countson 02-27-2024 HbA1c (Bld) [Mass fraction] 5.5 % [facility] [place] Mamm Screen w/CAD if perf and [...] Jeff Heard MD Transcribed by: JANIS Technologist: [facility] Assessment: BI-RADS Category 0-Incomplete: Need additional imaging evaluation Recommendation: Additional projections Normal [facility] Consent for Treatmenton 02-12 Consent for Treatment [id number] Normal [facility] CBC AUTO DIFFon 03-04-2023 BASO # 0.0 103/ul Normal 0.0-0.1 [facility] Comment on above: Performed By: #### CBC #### [facility] [address] [address] [address] Easton Rubi Basophils/100 WBC (Bld) 0.8 % Normal 0.2-2.0 [facility] Comment on above: Performed By: #### CBC #### [facility] [address] [address] [address] Easton Rubi EO # 0.1 103/ul Normal 0.0-0.7 [facility] Comment on above: Performed By: #### CBC #### [facility] [address] [address] [address] Easton Rubi Eosinophils/100 WBC (Bld) 2.4 % Normal 0.9-7.0 [facility] Comment on above: Performed By: #### CBC #### [facility] [address] [place] [address] Dr. Easton Rubi Erythrocyte distribution width (RBC) [Ratio] 12.5 % Normal 11.0-15.0 [facility] Comment on above: Performed By: #### CBC #### [facility] [address] [place] [address] Dr. Easton Rubi Hematocrit (Bld) [Volume fraction] 39.4 % Normal 36.0-48.0 [facility] Comment on above: Performed By: #### CBC #### [facility] [address] [place] [address] Dr. Easton Rubi Hemoglobin (Bld) [Mass/Vol] 13.2 g/dL Normal 12.0-16.0 [facility] Comment on above: Performed By: #### CBC #### [facility] [address] [place] [address] Dr. Easton Rubi IG # 0.01 10e3/ul Normal 0.00-0.03 [facility] Comment on above: Performed By: #### CBC #### [facility] [address] [place] [address] Dr. Easton Rubi IG % 0.2 % Normal 0.0-0.5 [facility] Comment on above: Performed By: #### CBC #### [facility] [address] [address] [address] Easton Rubi LYMPH # 1.9 103/ul Normal 1.2-3.8 [facility] Comment on above: Performed By: #### CBC #### [facility] [address] [place] [address] Dr. Easton Rubi Lymphocytes/100 WBC (Bld) 36.9 % Normal 20.5-60.0 [facility] Comment on above: Performed By: #### CBC #### [facility] [address] [place] [address] Dr. Easton Rubi MANUAL DIFF REQ NO Normal [facility] Comment on above: Performed By: #### CBC #### [facility] [address] [place] [address] Dr. Easton Rubi MCH (RBC) [Entitic mass] 28.3 pg Normal 26.7-34.0 [facility] Comment on above: Performed By: #### CBC #### [facility] [address] [place] [address] Dr. Easton Rubi MCHC (RBC) [Mass/Vol] 33.5 g/dL Normal 29.9-35.2 [facility] Comment on above: Performed By: #### CBC #### [facility] [address] [place] [address] Dr. Easton Rubi MCV (RBC) [Entitic vol] 84.5 fL Normal 81.0-99.0 [facility] Comment on above: Performed By: #### CBC #### [facility] [address] [place] [address] Dr. Easton Rubi MONO # 0.4 103/ul Normal 0.3-0.8 [facility] Comment on above: Performed By: #### CBC #### [facility] [address] [place] [address] Dr. Easton Rubi Monocytes/100 WBC (Bld) 8.3 % Normal 1.7-12.0 [facility] Comment on above: Performed By: #### CBC #### [facility] [address] [place] [address] Dr. Easton Rubi NEUT # 2.6 103/ul Normal 1.4-6.5 [facility] Comment on above: Performed By: #### CBC #### [facility] [address] [place] [address] Dr. Easton Rubi Neutrophils/100 WBC (Bld) 51.4 % Normal 43.0-75.0 [facility] Comment on above: Performed By: #### CBC #### [facility] [address] [place] [address] Dr. Easton Rubi Platelet mean volume (Bld) [Entitic vol] 11.0 fL Normal 9.5-13.5 [facility] Comment on above: Performed By: #### CBC #### [facility] [address] [place] [address] Dr. Easton Rubi PLT 294 103/ul Normal 150-450 [facility] Comment on above: Performed By: #### CBC #### [facility] [address] [place] [address] Dr. Easton Rubi RBC 4.66 106/ul Normal 4.20-5.40 [facility] Comment on above: Performed By: #### CBC #### [facility] [address] [place] [address] Dr. Easton Rubi WBC 5.0 103/ul Normal 4.0-11.0 [facility] Comment on above: Performed By: #### CBC #### [facility] [address] [place] [address] Dr. Easton Rubi PREG QUANT HCGon 03-04-2023 HCG QUANT <1 Normal [facility] Comment on above: Performed By: #### PREGQNT #### [facility] [address] [place] [address] Dr. Easton Rubi HCG RANGE SEE BELOW Normal [facility] Comment on above: Result Comment: 5-50 0.2-1 WEEK 50-500 1 -2 WEEKS 100-5,000 2-3 WEEKS 500-10,000 3-4 WEEKS 1,000-50,000 4-5 WEEKS 10,000-100,000 5-6 WEEKS 15,000-200,000 6-8 WEEKS 10,000-100,000 2-3 MONTHS Performed By: #### P REGQNT #### [facility] [address] [place] [address] Dr. Easton Rubi PAP ACOG PANEL 2: 30 to 65on 02-15-2023 . . Normal [facility] Comment on above: Result Comment: Performed at: WB Performed By: #### [id number] #### [facility] [address] [place] [address] Dr. Easton Rubi Age Gdln ACOG Testing 30-65 Normal [facility] Comment on above: Performed By: #### [id number] #### [facility] [address] [address] [address] Easton Rubi DIAGNOSIS: Comment Normal [facility] Comment on above: Result Comment: NEGATIVE FOR INTRAEPITHE LIAL LESION OR MALIGNANCY. Performed at: WB Performed By: #### [id number] #### [facility] [address] [place] [address] Dr. Easton Rubi HPV Aptima Negative Normal Negative [facility] Comment on above: Result Comment: This nucleic acid amplif ication test detects fourteen high-risk HPV types (16,18,31,33,35,39,45,51,52,56,58,59,66,68) without differentiation. Performed at: =G Performed By: #### [id number] #### [facility] [address] [place] [address] Dr. Easton Rubi HPV Genotype Reflex Comment Normal [facility] Comment on above: Result Comment: Criteria not met, HPV Ge notype not performed. Performed at: WB Performed By: #### [id number] #### [facility] [address] [place] [address] Dr. Easton Rubi Methodology: Comment Normal [facility] Comment on above: Result Comment: This liquid based ThinPr ep(R) pap test was screened with the use of an image guided system. Performed at: WB Performed By: #### [id number] #### [facility] [address] [place] [address] Dr. Easton Rubi Note: Comment Normal [facility] Comment on above: Result Comment: The Pap smear is a scree gómez test designed to aid in the detection of premalignant and malignant conditions of the uterine cervix. It is not a diagnostic procedure and should not be used as the sole means of detecting cervical cancer. Both false-positive and false-negative reports do occur. . Performed at: WB Performed By: #### [id number] #### [facility] [address] [place] [address] Dr. Easton uRbi Performed by: Comment Normal [facility] Comment on above: Result Comment: Rashida Francois, Cytotech nologist (ASCP) Performed at: WB Performed By: #### [id number] #### [facility] [address] [place] [address] Dr. Easton Rubi Specimen adequacy: Comment Normal [facility] Comment on above: Result Comment: Satisfactory for evaluat ion. Endocervical and/or squamous metaplastic cells (endocervical component) are present. Performed at: WB Performed By: #### [id number] #### [facility] [address] [place] [address] Dr. Easton Rubi AFP (TUMOR MARKER)on 023 AFP, Serum, Tumor Marker <1.8 Normal 0.0-6.4 [facility] Comment on above: Result Comment: [facility] Electr ochemiluminescence Immunoassay (ECLIA) . Values obtained with different assay methods or kits cannot be used interchangeably. Results cannot be interpreted as absolute evidence of the presence or absence of malignant disease. . This test is not interpretable in females. Performed By: #### A FP. #### [facility] [address] [place] [address] Dr. Easton Rubi CA 125on 01-29-2023 Cancer Antigen (CA) 125 13.6 U/mL Normal 0.0-38.1 [facility] Comment on above: Result Comment: [facility] Electr ochemiluminescence Immunoassay (ECLIA) . Values obtained with different assay methods or kits cannot be used interchangeably. Results cannot be interpreted as absolute evidence of the presence or absence of malignant disease. Performed By: #### C A 125 #### [facility] [address] [place] [address] Dr. Easton Rubi CEAon 01-29-2023 CEA 2.3 ng/mL Normal 0.0-4.7 [facility] Comment on above: Result Comment: Nonsmokers <3.9 Smokers <5.6 . [facility] Electrochemiluminescence Immunoassay (ECLIA) . Values obtained with different assay methods or kits cannot be used interchangeably. Results cannot be interpreted as absolute evidence of the presence or absence of malignant disease. Performed By: #### C EA. #### [facility] [address] [address] [address] Easton Rubi HCG QUANT TUMOR MARKERon HCG QNT TUMOR MARKER <1 Normal [facility] Comment on above: Result Comment: Female (Non-) [...] developed and its performance characteristics determined by [employer]. It has not been cleared or approved by the Food and Drug Administration for use as a tumor marker. . This test is not interpretable as a tumor marker in females. Performed By: #### H CGTMOR #### [facility] [address] [place] [address] Dr. Easton Rubi LDHon 01-27-2023 LDH 130 U/L Normal 81-234 [facility] Comment on above: Performed By: #### LDH #### [facility] [address] [place] [address] Dr. Easton Rubi US PELVIS AND TRANSVAGon [...] by: OTF KUMAR Date: 2023-01-20 06:51 Normal [facility] Vital Signs Date Time Vital Sign Value Performing Clinician Facility 07-29-2025 15:52-0400 Body height 170.18 cm Otf Metzger DO Work Phone: [facility] 07-29-2025 15:52-0400 Body mass index (BMI) [Ratio] 24.4 kg/m2 Otf Metzger DO Work Phone: [facility] 07-29-2025 15:52-0400 Body temperature 98.5 [degF] Otf Metzger DO Work Phone: [facility] 07-29-2025 15:52-0400 Body weight 70.76 kg Otf Metzger DO Work Phone: [facility] 07-29-2025 15:52-0400 Diastolic blood pressure 70 mm[Hg] Otf Metzger DO Work Phone: [facility] 07-29-2025 15:52-0400 Heart rate 84 /min Otf Metzger DO Work Phone: [facility] 07-29-2025 15:52-0400 SaO2% (BldA) [Mass fraction] 98 % Otf Metzger DO Work Phone: [facility] 07-29-2025 15:52-0400 Systolic blood pressure 106 mm[Hg] Otf Metzger DO Work Phone: [place] [address]-15-2024 09:22-0400 Body temperature 98.1 [degF] Yohan Wilson MD Work Phone: [facility] 03-28-2024 09:22-0400 Diastolic blood pressure 90 mm[Hg] Yohan Wilson MD Work Phone: [facility] 03-28-2024 09:22-0400 Heart rate 78 /min Yohan Wilson MD Work Phone: [facility] 03-28-2024 09:22-0400 SaO2% (BldA) [Mass fraction] 98 % Yohan Wilson MD Work Phone: [facility] 03-28-2024 09:22-0400 Systolic blood pressure 136 mm[Hg] Yohan Wilson MD Work Phone: [facility] 03-28-2024 09:21-0400 Body height 170.2 cm Yohan Wilson MD Work Phone: [facility] 03-28-2024 09:21-0400 Body mass index (BMI) [Ratio] 25.05 kg/m2 Yohan Wilson MD Work Phone: [facility] 03-28-2024 09:21-0400 Body weight 72.58 kg Yohan Wilson MD Work Phone: [facility] 03-05-2024 15:43-0400 Body height 170.18 cm [facility] 03-05-2024 15:43-0400 Body mass index (BMI) [Ratio] 25.5 kg/m2 [facility] 03-05-2024 15:43-0400 Body temperature 98.1 [degF] [facility] 03-05-2024 15:43-0400 Body weight 73.93 kg [facility] 03-05-2024 15:43-0400 Diastolic blood pressure 72 mm[Hg] [facility] 03-05-2024 15:43-0400 Heart rate 74 /min [facility] 03-05-2024 15:43-0400 SaO2% (BldA) [Mass fraction] 98 % [facility] 03-05-2024 15:43-0400 Systolic blood pressure 116 mm[Hg] [facility] 10-19-2023 12:10-0500 Heart rate 80 /min [facility] 10-19-2023 12:10-0500 Respiratory rate 10 /min [facility] 10-19-2023 12:05-0500 Diastolic blood pressure 75 mm[Hg] [facility] 10-19-2023 12:05-0500 Heart rate 89 /min [facility] 10-19-2023 12:05-0500 Mean blood pressure 90 mm[Hg] [facility] 10-19-2023 12:05-0500 Respiratory rate 17 /min [facility] 10-19-2023 12:05-0500 SaO2% (BldA) [Mass fraction] 100 % [facility] 10-19-2023 12:05-0500 Systolic blood pressure 120 mm[Hg] [facility] 10-19-2023 12:00-0500 Diastolic blood pressure 79 mm[Hg] [facility] 10-19-2023 12:00-0500 Heart rate 81 /min [facility] 10-19-2023 12:00-0500 Mean blood pressure 89 mm[Hg] [facility] 10-19-2023 12:00-0500 Respiratory rate 20 /min [facility] 10-19-2023 12:00-0500 Systolic blood pressure 108 mm[Hg] [facility] 10-19-2023 11:55-0500 Diastolic blood pressure 82 mm[Hg] [facility] 10-19-2023 11:55-0500 Mean blood pressure 90 mm[Hg] [facility] 10-19-2023 11:55-0500 SaO2% (BldA) [Mass fraction] 100 % [facility] 10-19-2023 11:55-0500 Systolic blood pressure 107 mm[Hg] [facility] 10-19-2023 11:47-0500 Blood Pressure Location [facility] 10-19-2023 11:47-0500 Body temperature 97.34 [degF] [facility] 10-19-2023 11:39-0500 Respiratory rate 15 /min [facility] 10-19-2023 11:35-0500 Respiratory rate 15 /min [facility] 10-19-2023 11:30-0500 Respiratory rate 15 /min [facility] 10-19-2023 10:10-0500 Blood Pressure Location Vanna Peralt[facility] 10-19-2023 10:07-0500 Blood Pressure Location [facility] 10-19-2023 10:07-0500 Body temperature 97.52 [degF] [facility] 09-13-2023 08:35-0400 Blood Pressure Location Renata Holleymetz [facility] 09-13-2023 08:35-0400 Body temperature 97.52 [degF] Renata Holleymetz [facility] 09-13-2023 08:35-0400 Diastolic blood pressure 86 mm[Hg] Renata Holleymetz [facility] 09-13-2023 08:35-0400 Heart rate 106 /min Renata Holleymetz [facility] 09-13-2023 08:35-0400 Systolic blood pressure 122 mm[Hg] Renata Holleymetz [facility] 08-22-2023 16:00-0400 Body height 170.18 cm Otf Metzger Other [facility] Other 08-22-2023 16:00-0400 Body mass index (BMI) [Ratio] 24.43 kg/m2 Otf Metzger Other [facility] Other 08-22-2023 16:00-0400 Body temperature 98.8 [degF] Otf Metzger Other [facility] Other 08-22-2023 16:00-0400 Body weight 70.76 kg Otf Metzger Other [facility] Other 08-22-2023 16:00-0400 Diastolic blood pressure 78 mm[Hg] Otf Metzger Other [facility] Other 08-22-2023 16:00-0400 Respiratory rate 18 /min Otf Metzger Other [facility] Other 08-22-2023 16:00-0400 SaO2% (BldA) [Mass fraction] 98 % Otf Jamilah Other [facility] Other 08-22-2023 16:00-0400 Systolic blood pressure 112 mm[Hg] Otf Metzger Other [facility] Other 09-25-2021 10:50-0500 Body height 170.18 cm Otf Metzger Other [facility] Other 09-25-2021 10:50-0500 Body mass index (BMI) [Ratio] 24.59 kg/m2 Otf Radhaadrian Other [facility] Other 09-25-2021 10:50-0500 Body temperature 97 [degF] Otf Metzger Other [facility] Other 09-25-2021 10:50-0500 Body weight 71.22 kg Otf Radhaadrian Other [facility] Other 09-25-2021 10:50-0500 Diastolic blood pressure 80 mm[Hg] Otf Metzger Other [facility] Other 09-25-2021 10:50-0500 Respiratory rate 18 /min Otf Metzger Other [facility] Other 09-25-2021 10:50-0500 SaO2% (BldA) [Mass fraction] 97 % Otf Metzger Other [facility] Other 09-25-2021 10:50-0500 Systolic blood pressure 122 mm[Hg] Otf Mtezger Other [facility] Other Encounters Encounter Date Encounter Type Care Provider Facility Start: 07-29-2025 End: 07-29-2025 ambulatory Otf Metzger DO Work Phone: [facility] Work Phone: Start: 07-29-2025 End: 07-29-2025 Patient encounter procedure Otf Metzger DO -[facility] Work Phone: Start: 06-12-2025 End: 06-12-2025 Orders Only Chava Kennedy RN [facility] Gynecology Oncology, A Department of [facility] Comment on above: Cysts of both ovarie s (Primary Dx) Start: 04-11-2025 End: 04-11-2025 Telephone encounter Carrie Flores RN [facility] Gynecology Oncology, A Department of [facility] Start: 12-16-2024 ambulatory OTF METZGER [facility] Ambulatory [facility] Start: 12-14-2024 End: 12-17-2024 Orders Only Chava Kennedy RN [facility] Gynecology Oncology, A Department of [facility] Comment on above: Cysts of both ovarie s (Primary Dx) Start: 12-04-2024 End: 12-04-2024 ambulatory [facility] Start: 08-28-2024 End: 11-26-2024 ambulatory Randall [facility] Facility:[facility] Start: 03-28-2024 End: 03-28-2024 ambulatory YOHAN WILSON [facility] Start: 03-28-2024 End: 03-28-2024 Office outpatient visit 40 minutes Yohan Wilson MD Work Phone: [facility] Gynecology Oncology Comment on above: Cysts of both ovarie s (Primary Dx) Start: 03-15-2024 End: 03-15-2024 Telephone encounter Chava Sapp RN [facility] Start: 03-08-2024 End: 03-08-2024 ambulatory Otf Metzger Facility:[facility] Start: 03-08-2024 End: 03-08-2024 Patient encounter procedure Otf Metzger [facility] Start: 03-05-2024 End: 03-05-2024 ambulatory [facility] Work Phone: Start: 03-05-2024 End: 03-05-2024 Patient encounter procedure [facility] Physician [facility] Work Phone: Start: 02-27-2024 Non-patient / Non-visit [facility] Physician [facility] Work Phone: Start: 02-24-2024 End: 02-24-2024 ambulatory SELF REFERRAL Facility:[facility] Start: 02-24-2024 End: 02-24-2024 Patient encounter procedure SELF REFERRAL [facility] Start: 01-17-2024 Refill Yohan Wilson MD Work Phone: [facility] Comment on above: Cysts of both ovarie s Start: 12-07-2023 Telephone encounter ASteff WOOTEN [facility] Start: 12-05-2023 End: 12-05-2023 ambulatory Otf Metzger Other [facility] Other Start: 12-05-2023 Telephone encounter Otf Metzger [facility] Start: 10-19-2023 End: 10-19-2023 Patient encounter procedure Vanna Johnson [facility] Start: 09-29-2023 End: 09-29-2023 ambulatory SILVIO QUIGLEY Not Available Start: 09-13-2023 End: 09-13-2023 Patient encounter procedure Renata Strong [facility] Start: 08-22-2023 End: 08-22-2023 ambulatory Otf Metzger Other [facility] Other Start: 08-22-2023 Office outpatient vi sit 25 minutes Otf Metzger [facility] Start: 07-06-2023 End: 07-06-2023 ambulatory Otf Metzger Other [facility] Other Start: 07-06-2023 Telephone encounter Otf Metzger [facility] Start: 05-02-2023 End: 05-02-[address] SILVIO QUIGLEY . Facility:[facility] Start: 05-02-2023 Telephone encounter Otf Metzger [facility] Start: 03-04-2023 End: 03-04-[address] SILVIO QUIGLEY . Facility:[facility] Start: 02-28-2023 Encounter for preprocedural cardiovascular examination DR SILVIO QUIGLEY . [facility] Start: 02-22-2023 End: 02-23-[address] SILVIO QUIGLEY . Facility:[facility] Start: 02-22-2023 End: 02-23-2023 Encounter for preprocedural cardiovascular examination DR SILVIO QUIGLEY . Facility:[facility] Start: 02-11-[address] SILVIO QUIGLEY . Facili ty:[facility] Start: 02-08-2023 End: 02-08-[address] SILVIO QUIGLEY . Facility:[facility] Start: 01-27-2023 End: 01-28-[address] SILVIO QUIGLEY . Facility:[facility] Start: 01-24-2023 End: 01-24-2023 ambulatory Otf Metzger Other [facility] Other Start: 01-24-2023 Telephone encounter Otf Metzger [facility] Start: 01-19-2023 End: 01-20-[address] SILVIO QUIGLEY . Facility:[facility] Start: 01-10-2023 End: 01-10-2023 ambulatory Otf Garciaadrian Other [facility] Other Start: 01-10-2023 Telephone encounter Otf Metzger [facility] Start: 11-12-2022 End: 11-12-2022 Patient encounter procedure Otf Espinosa Radhaadrian [facility] Start: 10-25-2022 End: 10-25-2022 ambulatory Otf Metzger Other [facility] Other Start: 10-25-2022 Telephone encounter Otf Metzger [facility] [place] Start: 07-26-2022 End: 07-26-2022 ambulatory Otf Metzger Other [facility] Other Start: 07-26-2022 Telephone encounter Otf Metzger [facility] Start: 07-20-2022 End: 07-20-2022 Patient encounter procedure Otf Espinosa Radhaadrian [facility] Start: 03-10-2022 End: 03-10-2022 ambulatory Otf Metzger Other [facility] Other Start: 03-10-2022 Telephone encounter Otf Metzger [facility] Start: 09-25-2021 End: 09-25-2021 ambulatory Otf Metzger Other [facility] Other Start: 09-25-2021 Office outpatient vi sit 15 minutes Otf Metzger [facility] Start: 11-23-2018 End: 11-24-2018 Patient encounter procedure DEFAULT PHYSICIAN Facility:[facility] Start: 10-31-2018 End: 11-01-2018 Patient encounter procedure DEFAULT PHYSICIAN Facility:[facility] Procedures Date Procedure Procedure Detail Performing Clinician Start: 10-19-2023 Colonoscopy Vanna banuelos Bowel dysfunction (disorder) Otf Metzger Comment on above: recestion Colonoscopy Renata Strong Comment on above: 20 years ago Gallbladder structur e (body structure) Otf Metzger Reduction mammoplasty Otf Metzger Plan of Treatment Date Care Activity Detail Author Start: 05-14-2026 End: 06-01-2027 US Pelvis transabdominal and transvaginal Ultrasound pelvic with transvaginal Imaging Routine Cysts of both ovaries Expected: 05/14/2026, Expires: 06/01/2027 [employer] Work Phone: Comment on above: Expected: 05/14/2026 , Expires: 06/01/2027 Start: 07-15-2025 Influenza vaccination Influenza Vacc ine [facility] Start: 07-03-2025 End: 07-03-2025 Patient encounter procedure 07/03/2025 9:00 AM EDT Office Visit [facility] Gynecology Oncology, A Department of [address] [place] [address] Yohan Wilson MD [address] [place] [address], [address] [place] [address] [facility] Gynecology Oncology, A Department of [facility] Start: 03-28-2025 Adult BMI Screening Adult BMI Screen ing [facility] Start: 03-28-2025 Tobacco Screening Tobacco Screening [facility] Start: 12-14-2024 End: 12-14-2025 US Pelvis transabdominal and transvaginal Ultrasound pelvic with transvaginal Imaging Routine Cysts of both ovaries Expected: 12/14/2024, Expires: 12/14/2025 [employer] Work Phone: Comment on above: Expected: 12/14/2024 , Expires: 12/14/2025 Start: 10-26-2024 Adult BMI Screening Adult BMI Screen ing [facility] Start: 10-26-2024 Tobacco Screening Tobacco Screening [facility] Start: 09-03-2024 DTaP,Tdap and Td Vac cines (2 - Td or Tdap) DTaP,Tdap and Td Vaccines (2 - Td or Tdap) [facility] Start: 07-15-2024 COVID-19 Vaccine ( season) COVID-19 Vaccine ( season) [facility] Start: 07-15-2024 Influenza vaccination Influenza Vacc ine [facility] Start: 03-28-2024 End: 03-28-2025 US Pelvis transabdominal and transvaginal Ultrasound pelvic with transvaginal Imaging Routine Cysts of both ovaries Expected: 03/28/2024, Expires: 03/28/2025 [facility] Work Phone: Comment on above: Expected: 03/28/2024 , Expires: 03/28/2025 Start: 03-28-2024 End: 03-28-2024 Patient encounter procedure 03/28/2024 9:30 AM EDT Office Visit [facility] Physicians Gynecology Oncology [address] [place] [address] [address] [place] [address] [place] [address] [place] [address], [address] [place] [address] [facility] Phys[facility] Gy[facility] Oncology Start: 07-15-2023 COVID-19 Vaccine ( season) COVID-19 Vaccine () [facility] Start: 1998 Screening for malign ant neoplasm of cervix Pap Smear [facility] Start: 1995 Adult BMI Follow Up Plan Adult BMI Follow Up Plan [facility] Start: 1989 [facility] 1999 panel - Serum or Plasma [facility] Comprehensive metabo lic 1999 panel - Serum or Plasma [facility] MG Breast - bilatera l Screening [facility] US Thyroid gland [facility] Immunizations Immunization Date Immunization Notes Care Provider Fa cility 08-28-2024 influenza virus vaccine, unspecified formulation Carrie Flores RN [facility] 08-29-2023 influenza virus vaccine, unspecified formulation Renata Strong [facility] Comment on above: Reason for Medicatio n: Prophylaxis 08-29-2023 influenza, injectabl e, quadrivalent, preservative free Otf Metzger DO Work Phone: [facility] 09-02-2022 influenza virus vaccine, unspecified formulation Otf Metzger [facility] Comment on above: Reason for Medicatio n: Prophylaxis 09-02-2022 influenza, injectabl e, quadrivalent, preservative free Otf Metzger Other [facility] 11-20-2021 COVID-19 Vaccine Moderna - Documentation Purposes Only Otf Metzger Other [facility] Comment on above: Reason for Medicatio n: Prophylaxis 08-26-2021 influenza virus vaccine, unspecified formulation Otf Mtezger [facility] Comment on above: Reason for Medicatio n: Prophylaxis 08-26-2021 influenza, injectabl e, quadrivalent, preservative free Otf Metzger DO Work Phone: [facility] 08-17-2021 influenza, seasonal, injectable Otf Metzger Other [facility] 12-18-2020 COVID-19 Vaccine Moderna - Documentation Purposes Only Otf Metzger Other [facility] 11-20-2020 COVID-19 Vaccine Moderna - Documentation Purposes Only Otf Metzger Other [facility] 09-03-2014 influenza virus vaccine, unspecified formulation Renata Strong [facility] 09-03-2014 seasonal influenza, intradermal, preservative free Otf Metzger DO Work Phone: [facility] 09-03-2014 tetanus and diphther ia toxoids, adsorbed, preservative free, for adult use (5 Lf of tetanus toxoid and 2 Lf of diphtheria toxoid) [facility] 09-03-2014 tetanus toxoid, redu carina diphtheria toxoid, and acellular pertussis vaccine, adsorbed Otf Metzger Other [facility] Payers Date Payer Category Payer Commercial Managed C are - POS [employer] [id number] 2004 Private Health Insurance AETTIA SALAZAR POS II [id number] 2004-Present [id number] [place] [id number] 1977 Unknown [id number] [id number] 9.2.647 1977 Unknown [id number] 2.16.840.1.793872.3.57 9.2.647 1977 Unknown [id number] 2.16.840.1.344373.3.57 9.2.593 1977 Unknown [id number] 2.16.840.1.578483.3.57 9.2.593 1977 Unknown [id number] 2.16.840.1.934392.3.57 9.2.593 1977 Unknown [id number] 2.16.840.1.600455.3.57 9.2.593 1977 Unknown [id number] 2.16.840.1.790239.3.57 9.2.593 1977 Unknown [id number] 2.16.840.1.181107.3.57 9.2.593 1977 Unknown [id number] 2.16.840.1.585045.3.57 9.2.593 1977 Unknown [id number] 2.16.840.1.067539.3.57 9.2.1259 1977 Unknown [id number] 2.16.840.1.010086.3.57 9.2.1286 1977 Unknown [id number] 2.16.840.1.596390.3.57 9.2.727 1977 Unknown [id number] 2.16.840.1.651381.3.57 9.2.727 1977 Unknown [id number] 2.16.840.1.310526.3.57 9.2.727 1977 Unknown [id number] 2.16.840.1.099188.3.57 9.2.727 1977 Unknown [id number] 2.16.840.1.961173.3.57 9.2.1286 1977 Unknown [id number] 2.16.840.1.369458.3.57 9.2.1286 1959 Private Health Insurance [id number] 1959 Self-pay [id number] Private Health Insurance [id number] Self-pay Self Pay [id number] Unknown Unknown [employer] [place] [id number] Social History Date Type Detail Facility Unknown if ever smoked [facility] Other Start: 04-23-2019 End: 03-28-2024 Sex Assigned At [facility] [email or web address] Other Start: 11-24-2019 End: 03-05-2024 Tobacco smoking status Never smoked tobacco (finding) [facility] Tobacco smoking status Never [facility] Start: 1975 Sex Assigned At Female F [facility] Start: 10-26-2023 Tobacco use and exposure Smokeless tobacco non-user [facility] Start: 10-26-2023 End: 03-28-2024 Alcoholic beverage intake Ex-drinker (finding) [facility] Start: 04-23-2019 End: 03-28-2024 History of Social function [facility] Start: 1975 Sex assigned at Not on file P [facility] Start: 06-17-2015 Sex Female (finding) [facility] Functional Status Date Assessment Result Facility 10-19-2023 Functional Status N/A [facility] 09-13-2023 Functional Status N/A [facility] Clinical Notes 06-22-2018 to 06-12-2025 Chava Kennedy RN - 06/12/2025 8:58 AM EDTTelephone Encounter - Carrie Flores RN - 04/11/2025 2:11 PM EDTTelephone Encounter - Carrie Flores RN - 04/11/2025 2:11 PM EDT Note Date & Type Note Facility 06-12-2025 History of Presen t illness Narrative US reviewed with Dr Wilson. Per Dr Wilson - US stable/Cysts unchanged. Repeat US in one year w/follow up, or sooner if needed. Called patient and LVM with update. Advised to repeat US in one year with OV w/Dr Wilson and to call office sooner if starts experiencing pain. Call back number provided. documented in this encounter [facility] 04-11-2025 Miscellaneous Notes Formattin g of this note might be different from the original. [facility] order faxed to [place] at patient's request. Patient provided # [phone] for orders to be faxed. documented in this encounter [facility] 04-11-2025 Telephone encount er Note [facility] order faxed to [place] at patient's request. Patient provided # [phone] for orders to be faxed. [facility] 12-14-2024 Miscellaneous Notes Formattin g of this note might be different from the original. Patient called because she had an ultrasound in October and never received a call from the office with prognoses or plan of action. Information Technology Technician consulted RN; ultrasound results forwarded to [facility] for directives. Information Technology Technician returned patient's call to inform her that the office will reach out again with a plan. Patient expressed gratitude and understanding. Information Technology Technician also left voicemail for radiology at [facility] requesting ultrasound images be sent to [facility]. documented in this encounter [facility] 12-14-2024 Telephone encount er Note Patient called because she had an ultrasound in October and never received a call from the office with prognoses or plan of action. Information Technology Technician consulted RN; ultrasound results forwarded to [facility] for directives. Information Technology Technician returned patient's call to inform her that the office will reach out again with a plan. Patient expressed gratitude and understanding. Information Technology Technician also left voicemail for radiology at [facility] requesting ultrasound images be sent to [facility]. 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 Left Vm asking pt c/b r/t US results documented in this encounter [employer] 03-15-2024 Telephone encount er Note Left Vm asking pt c/b r/t US results [facility] 12-07-2023 Miscellaneous Notes Formattin g of this note might be different from the original. LVM for pt to call office and get scheduled with QUIN Meyers to discuss other control options. documented in this encounter [facility] 12-07-2023 Telephone encount er Note LVM for pt to call office and get scheduled with QUIN Meyers to discuss other control options. [facility] 12-05-2023 Evaluation note Encounter Date Diagnosis Assessment Notes Nov, Iron deficiency anemia (ICD-10 - D50.9) [facility] 12-06-2023 Hospital Discharge instructions Patient Education 10/19/2023 11:53:28 [facility] NSAIDS-Nonsteroidal Anti-Inflammatory Medications (CUSTOM) AvoidNonsteroidal Anti-Inflammatory Medications [...] pain neck pain Some NSAIDs are available cpmy-rba-eyawjev, without the need for a prescription. However, [...] intestines 10/19/2023 11:52:58 Colonoscopy, Care After Surgery Salam (CUSTOM) Colonoscopy Care After Surgery Please read [...] Care 09/13/2023 09:19:49 With:Elizabeth CHUA, SANTA Fernandez, [facility] Address: [address], [address] [facility] [address] [place] [address]- [phone] When: Unknown Comments:Office Will Call Date and Time of Follow-up Appt. [facility] Evaluation + Plan note Future Scheduled Tests Laboratory* Fecal WBC Lactoferrin 09/13/23 * Giardia lamblia, Direct Detection EIA 09/13/23 * O & P Exam, Routine 09/13/23 * Clostridium Difficile PCR 09/13/23 * Enteric Panel by PCR 09/13/23 * CBC w/ Auto Diff 09/13/23 * Comprehensive Metabolic Panel 09/13/23 * Thyroid Stimulating Hormone 09/13/23 [facility] Hospital Discharge instructions Patient Education 09/13/2023 [...] including vitamins, herbs, eye drops, creams, and pgpu-mvy-vfuovhn medicines. Any problems you or family members [...] provider tells you to take them. Taking sghd-sty-juifbfw medicines, vitamins, herbs, and supplements. General instructions [...] provider. Document Revised: 10/25/2022 Document Reviewed: 06/23/2022 [employer] Patient Education 2022 [employer]. Follow Up Care 08/26/2023 11:00:38 With:Renata Strong CNP Address: When:1 to 2 weeks Comments:Following Colonoscopy. [facility] 10-09-2023 Evaluation note* Encounter [...] has lost one pound since last seen. [facility] Other 06-19-2023 Evaluation note* Encounter Date Diagnosis Assessment Notes Treatment Notes Treatment Clinical Notes Apr, Spastic colon (ICD-10 - K58.9) [facility] Other 04-21-2023 NoteOPERATIVE NOTE OPERATION DATE: 03/04/2023 PROCEDURE: Ama endometrial ablation with hysteroscopy. PREOPERATIVE DIAGNOSIS: Menorrhagia. POSTOPERATIVE DIAGNOSIS: Menorrhagia. ANESTHESIA: General. SURGEON: Silvio Quigley D.O. LIBRARY MANAGER: None. BLOOD LOSS: 5 mL. URINE OUTPUT: [...] Patient taken to recovery in stable condition[id number] note* Encounter Date Diagnosis Assessment Notes Treatment Notes Treatment Clinical Notes Jan, Spastic colon (ICD-10 - K58.9) [facility] Other 02-27-2023 Evaluation note* Encounter Date Diagnosis Assessment Notes Treatment Notes Treatment Clinical Notes Dec, Iron deficiency anemia (ICD-10 - D50.9) [facility] Other 12-12-2022 Evaluation note* Encounter Date Diagnosis [...] her overactive thyroid and was seeing an [employer] in [place] for this in the past but has [...] I thought she was following with an [employer]. She denies palpitations, weight loss, losing weight [...] off she should return to see the [employer]cher [employer]. Call for results. Oct, Spastic colon (ICD-1 [...] Oct, Other 4:47 PM - 4:58 PM [facility] Other 09-12-2022 Evaluation note* Encounter Date Diagnosis [...] with above medication as needed. Jul, Other penitentiary (current) drug therapy (ICD-10 - Z79.899) Jul, Other 5:07 PM - 5:12 PM [facility] 09-06-2022 Evaluation + Plan note Diagnostic Tests Pending * [facility] 07/20/22 [facility] Evaluation note* Encounter Date Diagnosis Assessment [...] (ICD-10 - E05.90) She voices that an [employer]cher [employer] placed her on this. She ended up seeing a [place] doctor and had an echocardiogram done and [...] does not have any of this medication. [facility] Other 08-09-2018 History general Narrative - Reported* [...] Hospitalization History [facility] - [facility] Other 08-09-2018 History general Narrative - Reported* [...] Hospitalization History [facility] - heart racing [facility] Other Evaluation + Plan note Future Appointments Appointment Date:10/19/2023 11:00:00 AM Scheduled Provider: Location:[facility] Appointment Type:Surgery FT Future Scheduled Tests Laboratory* Fecal WBC Lactoferrin 09/13/23 * Giardia lamblia, Direct Detection EIA 09/13/23 * O & P Exam, Routine 09/13/23 * Clostridium Difficile PCR 09/13/23 * Enteric Panel by PCR 09/13/23 * CBC w/ Auto Diff 09/13/23 * Comprehensive Metabolic Panel 09/13/23 * Thyroid Stimulating Hormone 09/13/23 [facility] Evaluation noteNo [employer] Other evaluwizkx note* Diagnosis Onset Date Resolution Status Abnormal mammogram acute Hyperglycemia acute Hyperthyroidism acute Iron deficiency anemia acute Spastic colon acute Spider bite acute [facility] Work Phone: Evaluation note* Diagnosis Cysts of both ovaries- Primary Other and unspecified ovarian cyst [facility] Diagnosis Cysts of both ovaries Other and unspecified ovarian cyst [facility] Diagnosis Cysts of both ovaries- Primary Other and unspecified ovarian cyst documented [facility]* Diagnosis Onset Date Resolution Status Admit Date Dysphagia acute July 4:28pm Hyperglycemia acute July 152024 4:28pm Hyperthyroidism acute July 29, 2025 4:28pm Iron deficiency anemia acute Se pt2024 4:28pm [facility] Work Phone: Hospital course Narrative No data available for this section [facility] No data available for this section [facility]ructionsNot on filedocumented in this encounter [facility] on filedocumented in [facility] encounter [facility] CampusInstructionsNot on filedocumented in this encounter [facility] CampusProgress note No data available for this section [facility] HospitalReason for referral (narrative)No reason for referral information availableOhiohealth Hardin Memorial Hospital Work Phone: Summary Purpose Family History Relationship Condition Age at Onset Recorded Date/T ashley grandparent Unknown Advance Directives Advance Directive Response Recorded Date/ Time Advance Directives No June 27, 2018 7:15am Reason for Referral Reason appt pt needs cons ult with Dr. Johnson for a colonoscopy Diagnosis 1 Spastic colon (K58.9 ) Referral Organization [facility] Referring Provider First Name Otf Referring Provider Last Name Jamilah Referring Provider Specialty Family Prac nate Referred Organization [facility] Referred Provider Vanna Johnson Referred Address [address],[place], [place],[address] Referred Provider Specialty Gastroentero logy Referral Priority Routine General Notes Monica Mueller 08/22/2023 04:22:21 PM > referral faxed to [facility] with visit note and insurance card. pt understands she will be contacted to schedule this appt. Chief Complaint and Reason for Visit Chief Complaint review labs Reason for Visit Abnormal mammogram Hyperglycemia Hyperthyroidism Iron deficiency anemia Spastic colon Spider bite Chief Complaint Admit Date review labs July 29, 2025 4:28pm Reason for Visit Admit Date Dysphagia July 29, 2025 4:28pm Hyperglycemia July 29, 2025 4:28pm Hyperthyroidism July 29, 2025 4:28pm Iron deficiency anemia July 29, 025 4:28pm Additional Source Comments INFORMATION SOURCE (unrecogn ized section and content) DATE CREATED AUTHOR 11/23/2018 [facility] DATE CREATED AUTHOR AUTHOR'S ORGANIZ ATION 03/11/2023 [facility] DATE CREATED AUTHOR AUTHOR'S ORGANIZ ATION 10/01/2023 [facility] EPIC DATE CREATED AUTHOR AUTHOR'S ORGANIZ ATION 03/30/2024 [facility] DATE CREATED AUTHOR AUTHOR'S ORGANIZ ATION 12/16/2024 [facility] DATE CREATED AUTHOR AUTHOR'S ORGANIZ ATION 12/17/2024 [facility] REASON FOR VISIT (unrecogniz ed section and content) Reason Comments Med Refill Care Team (unrecognized sect ion and content) Team Status: Active Member Role Status Dates Otf Metzger DO Primary Care Provider Active Team Status: Inactive Member Role Status Dates Otf Metzger DO Primary Care Provider Active S tart: July 29, 2025 End: July 29, 2025 Otf Metzger DO Attending Provider Active Star t: July 29, 2025 End: July 29, 2025 Team Status: Active Member Role Status Dates Otf Metzger DO Primary Care Provider Active Team Status: Active Member Role Status Marielos Metzger DO Primary Care Provide r, Attending Provider Active Start: February 27, 2024 Team Status: Inactive Member Role Status Dates Otf Metzger DO Primary Care Provide r, Attending Provider Active Start: March 05, 2024 End: March 05, 2024 Mold Designer Relationship Specialty Start Date End Date Otf Metzger DO [address] [place] [address] PCP - General Family Medicine 10/26/23 Mold Designer Relationship Specialty Start Date End Date Otf Metzger DO [address] [place] [id number] PCP - General Family Medicine 10/26/23 Mold Designer Relationship Specialty Start Date End Date Otf Metzger DO [address] [place] [id number] PCP - General Family Medicine 10/26/23 Mold Designer Relationship Specialty Start Date End Date Otf Metzger DO [address] [place], [place] [id number] PCP - General [facility] Medicine 10/26/23 Mold Designer Relationship Specialty Start Date End Date Otf Metzger DO [address] [place], [place] [id number] PCP - [facility] Medicine 10/26/23 Team Status: Inactive Member Role Status Dates Otf Metzger DO Primary Care Provider Active S tart: July 29, 2025 End: July 29, 2025 Otf Metzger DO Attending Provider Active Star t: July 29, 2025 End: July 29, 2025 Goals (unrecognized section and content) Goals may [...] BE BASED ON THE PRIMARY CLINICAL RECORDS. [employer] provides no warranty or guarantee of the accuracy or completeness of information in this document.
== END 2025-08-07 14:08 | disposition home or self-care (01) ==
LOC: US 14:07
PROVIDERS: PCP Family Medicine; Visit Provider Family Medicine
DX: R13.10 Dysphagia, unspecified (principal); E04.2 Nontoxic multinodular goiter
CPT/HCPCS: 76536